=== PATIENT | male | born 1955 | race Caucasian/White ===

== ENCOUNTER 2021-06-25 15:34 | Emergency (ER) | payer MEDICARE, SELFPAY ==
[2021-06-25 15:41] VITALS: BP 189/126; PULSE 108; RESP 18; TEMP 36.6; O2SAT 96; BMI 32.0
--- NOTE | 2021-06-25 15:47 | XRR_ITS ---
PROCEDURE INFORMATION: Exam: XR Chest Exam date and time: 06/25/2021 3:47 PM Age: 65 years old Clinical indication: Other: No specified; Patient HX: C/O chest pain TECHNIQUE: Imaging protocol: XR of the chest. Views: 1 view. COMPARISON: No relevant prior studies available. FINDINGS: Lungs: Left lower lobe atelectasis versus minimal infiltrate Pleural spaces: Unremarkable. No pleural effusion. No pneumothorax. Heart/Mediastinum: Borderline cardiomegaly. Bones/joints: Unremarkable. XR/XR chest 1V portable [id number] IMPRESSION: 1. Left lower lobe atelectasis versus minimal infiltrate 2. Borderline cardiomegaly.
--- NOTE | 2021-06-25 15:49 | ECG_ITS ---
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 Measurements Intervals Jeff Rate: 100 P: 33 AR: 170 QRS: -58 QRSD: 102 T: 79 QT: 336 QTc: 433 Interpretive Statements SINUS TACHYCARDIA LEFT ANTERIOR FASCICULAR BLOCK [QRS AXIS <= -45, QR IN I, RS IN II] SEPTAL MYOCARDIAL INFARCTION , PROBABLY OLD [40+ ms Q WAVE IN V1/V2] POSSIBLE LATERAL MYOCARDIAL INFARCTION , OF INDETERMINATE AGE [30 ms Q WAVE IN I/aVL/V5/V6] No previous ECG available for comparison Electronically Signed On 06-26-2021 6:57:33 ART STUDIO TEACHER by Karlos Amin M.D. [id number]
--- NOTE | 2021-06-25 16:05 | PC.PHAR ---
pt states he use to takes bp meds-pt states he hasnt taken in at least 4 years-pt states he didnt need them anymore-pts states today she gave the pt one of her lisinopril 5mg tabs and a nitro pill x3-notes are made in the pharmacy comments
--- NOTE | 2021-06-25 16:26 | W.ED.CHESTPA ---
Documented by User: John Canchola DO 06/26/21 07:19 HPI - Chest Pain General: Chief Complaint: Chest Pain Stated Complaint: Chest Pains Time Seen by Provider: 06/25/21 15:47 Source: patient Mode of arrival: ambulatory Limitations: no limitations History of Present Illness: 65-year-old male presents emergency room with right-sided chest pain is worse with palpation radiating to his right arm. Began while he was at rest his gave him 3 nitro he reports he did get better with nitro. He also took a baby aspirin. After the nitro the chest pain did get better. Patient has no known history of coronary artery disease. He is not diabetic. Pain is reproducible with pain on palpation on the right side of the chest. He relates pain radiates into the right arm earlier now is resolved he denies any nausea dyspnea or diaphoresis with it. Has not previously had episodes of pain. MD complaint: chest pain Onset (ago): minute(s) Timing of current episode: episodic Onset: during rest Pain location: right chest Pain radiation: right arm Severity: mild Quality: tightness, aching, heaviness and fullness Relieving factors: nitroglycerin Exacerbating factors: nothing Associated symptoms: Deny abdominal pain, diaphoresis, dyspnea, fever(s), leg edema, nausea, palpitations, sense of impending doom, syncope or vomiting Treatment prior to arrival: aspirin and nitroglycerin Review of Systems Const: Denies: fever(s) or diaphoresis ENMT: Denies: throat pain, ear or mastoid pain, nasal discharge or nasal congestion Card: Denies: palpitations or syncope Resp: Denies: dyspnea GI: Denies: abdominal pain, nausea or vomiting : Denies: flank pain, dysuria, urinary frequency or urinary urgency Skin/Breast: Denies: rash or pruritus PFS ED PFSH: Medical History Hypertension Social History Smoking and tobacco status: former smoker Alcohol intake: unknown Physical Exam Const: GENERAL APPEARANCE: cooperative and comfortable ORIENTATION/CONSCIOUSNESS: Yes awake, Yes oriented to person, Yes oriented to place and Yes oriented to time HENMT: COMMON NORMALS: normocephalic, atraumatic and hearing grossly normal bilaterally HEAD & SCALP: normocephalic and atraumatic Neck/C-Spine: COMMON NORMALS: no JVD Resp: COMMON NORMALS: normal respiratory effort, No retractions, No use of accessory muscles and clear to auscultation bilaterally AUSCULTATION: clear to auscultation bilaterally Cardio: COMMON NORMALS: no JVD, regular rate, regular rhythm and No murmurs present (Cardio) RATE: regular rate RHYTHM: regular rhythm GI: COMMON NORMALS: Soft to palpation and No hepatosplenomegaly present AUSCULTATION: Yes normoactive bowel sounds PALPATION: Yes Soft to palpation, No Tenderness to palpation present (GI), No Guarding due to palpation present (GI) and Yes No hepatosplenomegaly present Extremity: COMMON NORMALS: normal to inspection, capillary refill normal, no clubbing, cyanosis or edema, no calf tenderness and no pedal edema Neuro: SENSORIUM/ORIENTATION: Yes oriented to person, Yes oriented to place and Yes oriented to time Skin: COMMON NORMALS: no rashes or lesions noted GENERAL SKIN EXAM: no rashes or lesions noted Course Vital Signs: Vital signs: Vital Signs Temperature 98 F 06/25/21 15:41 Pulse Rate 90 06/25/21 21:03 Respiratory Rate 16 06/25/21 21:03 Blood Pressure 148/110 06/25/21 21:03 Pulse Oximetry 96 06/25/21 21:03 MDM - Chest Pain Medical Decision Making Repeat labs pending. First troponin elevated. No acute EKG changes. Care signed out to Dr. Blunt at change of shift. See final notes for diagnosis and disposition. 65-year-old male checked out to me at shift change by Dr. Canchola. This gentleman has had right-sided chest pain that is resolved. He states that he has been belching since he has been here, which is completely relieved his pain. His initial EKG did not show any significant ST changes. His white blood cell count is 13.5, hemoglobin 17.5. His vitals have been good. His first troponin was elevated, with a significant delta troponin of 88 at 2 hours. The patient was counseled on his test results, and the concern for non-STEMI in this patient at this point. He was advised that he needed to come into the hospital for further testing, and would possibly end up in the Community Action Worker because of this. The patient adamantly declined admission, stating that he was asymptomatic at this point, that he would return if his symptoms returned at all, and that he wished to go home. He understands the risks of going home, including evolving OR, heart failure, and potentially arrhythmia and . He understands and agrees to this, and still declines admission. Lab Data : 06/25/21 17:11 06/25/21 16:41 Radiology Impressions Chest X-Ray 06/25/21 15:47 IMPRESSION: 1. Left lower lobe atelectasis versus minimal infiltrate 2. Borderline cardiomegaly. Laboratory Results WBC 13.5 10^3/uL (4.0-10.0) H 06/25/21 17:11 Corrected WBC Cancelled 06/25/21 16:41 RBC 6.07 10^6/uL (4.1-5.3) H 06/25/21 17:11 Hgb 17.5 g/dL (11.7-16.6) H 06/25/21 17:11 Hct 51.4 % (42.0-52.0) 06/25/21 17:11 MCV 84.7 fl (80-94) 06/25/21 17:11 MCH 28.8 pg (28.0-34.0) 06/25/21 17:11 MCHC 34.0 g/dL (30.0-36.0) 06/25/21 17:11 RDW 12.9 % (12.1-15.1) 06/25/21 17:11 Plt Count 273 10^3/cmm (130-400) 06/25/21 17:11 MPV 11.0 fL (7.4-10.4) H 06/25/21 17:11 Gran % Cancelled 06/25/21 16:41 Neut % (Auto) 74.6 % 06/25/21 17:11 Lymph % (Auto) 16.1 % 06/25/21 17:11 Clarke % (Auto) 6.6 % 06/25/21 17:11 Eos % (Auto) 1.4 % 06/25/21 17:11 Baso % (Auto) 1.0 % 06/25/21 17:11 Neut # (Auto) 10.08 10^3/uL (1.8-7.7) H 06/25/21 17:11 Lymph # (Auto) 2.2 10^3/uL (0.8-4.8) 06/25/21 17:11 Clarke # (Auto) 0.9 10^3/uL (0.2-0.9) 06/25/21 17:11 Eos # (Auto) 0.2 10^3/uL (0.0-0.8) 06/25/21 17:11 Baso # (Auto) 0.1 10^3/uL (0.0-0.1) 06/25/21 17:11 Absolute Gran (auto) Cancelled 06/25/21 16:41 Nucleated RBC % (auto) 0 % 06/25/21 17:11 Nucleated RBCs # 0.0 /100WBC 06/25/21 17:11 Sodium 136 mmol/L (136-145) 06/25/21 16:41 Potassium 4.1 mmol/L (3.5-5.1) 06/25/21 16:41 Chloride 103 mmol/L (98-107) 06/25/21 16:41 Carbon Dioxide 22 mmol/L (22-29) 06/25/21 16:41 Anion Gap 15.1 (5-19) 06/25/21 16:41 BUN 14 mg/dL (8-23) 06/25/21 16:41 Creatinine 0.9 mg/dL (0.7-1.2) 06/25/21 16:41 GFR Calculation 84.4 mL/min (90-130) L 06/25/21 16:41 Glucose 122 mg/dL (65-115) H 06/25/21 16:41 Calculated Osmolality 284 mOsm/kg (285-295) L 06/25/21 16:41 Calcium 10.2 mg/dL (8.5-10.5) 06/25/21 16:41 Total Bilirubin 0.4 mg/dL (0.15-1.2) 06/25/21 16:41 AST 23 U/L (0-40) 06/25/21 16:41 ALT 16 U/L (0-41) 06/25/21 16:41 Alkaline Phosphatase 189 IU/L (40-130) H 06/25/21 16:41 Troponin T Baseline 74 ng/L (0-15) H 06/25/21 16:41 Troponin T 120 Minute 155.4 ng/L (0-15) H 06/25/21 18:45 Delta Troponin T 81.4 ABS# (0-10) H* 06/25/21 18:45 Total Protein 7.1 g/dL (6.6-8.7) 06/25/21 16:41 Albumin 4.4 g/dL (3.5-5.2) 06/25/21 16:41 Globulin 2.7 g/dL (1.3-4.6) 06/25/21 16:41 Discharge Plan Discharge Patient Disposition: Home Clinical Impression: Chest pain Condition: Stable Prescriptions: No Action aspirin 325 mg Tablet 325 mg PO ONCE 0RF Nitrostat 0.4 mg Tablet, Sublingual 0.4 mg SUBLINGUAL Q5M PRN (Reason: Chest Pain) 0RF Rx Instructions: do not exceed 3 doses per episode lisinopril 5 mg Tablet 5 mg PO ONCE 0RF Discharge Orders: Discharge ED (Routine); Ordered 06/25/21 Ordered By: Dwayne Blunt Referrals: Brice Sanderson MD [Family Provider] - 1-3 days Discharge Diet: Advance as tolerated Discharge Activity: Limit activity as instructed Patient Instructions: Chest Pain (ED) Activity Restrictions/Additional Instructions: See your doctor Monday as scheduled. Return immediately to the ER for any return of your chest pain, shortness of breath, dizziness, nausea or vomiting, any other concerning symptoms. An outpatient order for stress test has been ordered for you. You should get a call from hospital scheduling regarding this this coming week. Coding Level of Care Code ED Electric Motor Repair Supervisor for Chg Fwd Exam Comprehensive Documented by User: Dwayne Blunt DO 06/25/21 22:58 HPI - Chest Pain General: Chief Complaint: Chest Pain Stated Complaint: Chest Pains Time Seen by Provider: 06/25/21 15:47 PFSH ED PFSH: Medical History Hypertension Social History Smoking and tobacco status: former smoker Alcohol intake: unknown Course Vital Signs: Vital signs: Vital Signs Temperature 98 F 06/25/21 15:41 Pulse Rate 90 06/25/21 21:03 Respiratory Rate 16 06/25/21 21:03 Blood Pressure 148/110 06/25/21 21:03 Pulse Oximetry 96 06/25/21 21:03 MDM - Chest Pain Medical Decision Making 65-year-old male checked out to me at shift change by Dr. Canchola. This gentleman has had right-sided chest pain that is resolved. He states that he has been belching since he has been here, which is completely relieved his pain. His initial EKG did not show any significant ST changes. His white blood cell count is 13.5, hemoglobin 17.5. His vitals have been good. His first troponin was elevated, with a significant delta troponin of 88 at 2 hours. The patient was counseled on his test results, and the concern for non-STEMI in this patient at this point. He was advised that he needed to come into the hospital for further testing, and would possibly end up in the Community [facility] Worker because of this. The patient adamantly declined admission, stating that he was asymptomatic at this point, that he would return if his symptoms returned at all, and that he wished to go home. He understands the risks of going home, including evolving OR, heart failure, and potentially arrhythmia and . He understands and agrees to this, and still declines admission. Lab Data : 06/25/21 17:11 06/25/21 16:41 Radiology Impressions Chest X-Ray 06/25/21 15:47
[2021-06-25] MEDS: aspirin 81 mg Chew Tablet 324 MG PO (16:36)
[2021-06-25 16:38] VITALS: BP 166/107; PULSE 98; RESP 16; O2SAT 91
[2021-06-25 17:20] LABS: Troponin(5th) Baseline 74 ng/L (0-15)
[2021-06-25 17:22] LABS: Alanine Aminotransferase 16 U/L (0-41); Albumin Level 4.4 g/dL (3.5-5.2); Alkaline Phosphatase 189 IU/L (40-130); Aspartate Amino Transferase 23 U/L (0-40); Blood Urea Nitrogen 14 mg/dL (8-23); Calcium 10.2 mg/dL (8.5-10.5); Carbon Dioxide 22 mmol/L (22-29); Chloride 103 mmol/L (98-107); Globulin 2.7 g/dL (1.3-4.6); Glomerular Filtration Rate 84.4 mL/min (90-130); Glucose 122 mg/dL (65-115); Osmolality Calculated 284 mOsm/kg (285-295); Sodium 136 mmol/L (136-145); Total Bilirubin 0.4 mg/dL (0.15-1.2); Total Protein 7.1 g/dL (6.6-8.7)
[2021-06-25 17:25] LABS: Anion Gap 15.1 (5-19); Potassium 4.1 mmol/L (3.5-5.1)
[2021-06-25 17:28] LABS: Basophils # 0.1 10^3/uL (0.0-0.1); Eosinophils # 0.2 10^3/uL (0.0-0.8); Eosinophils % 1.4 %; Hematocrit 51.4 % (42.0-52.0); Hemoglobin 17.5 g/dL (11.7-16.6); Lymphocytes # 2.2 10^3/uL (0.8-4.8); Lymphocytes % 16.1 %; Mean Corpuscular Hemoglobin 28.8 pg (28.0-34.0); Mean Corpuscular Volume 84.7 fl (80-94); Monocytes # 0.9 10^3/uL (0.2-0.9); Monocytes % 6.6 %; Neutrophils # 10.08 10^3/uL (1.8-7.7); Neutrophils % 74.6 %; Nucleated Red Blood Cells % 0 %; Platelet Count 273 10^3/cmm (130-400); Red Blood Count 6.07 10^6/uL (4.1-5.3); Red Cell Distribution Width 12.9 % (12.1-15.1); White Blood Count 13.5 10^3/uL (4.0-10.0)
[2021-06-25 17:35] VITALS: BP 152/105; PULSE 102; O2SAT 95
--- NOTE | 2021-06-25 17:49 | ECG_ITS ---
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 Measurements Intervals [place] Rate: 93 P: 40 AK: 170 QRS: -47 QRSD: 94 T: 76 QT: 339 QTc: 424 Interpretive Statements SINUS RHYTHM PATTERN CONSISTENT WITH PULMONARY DISEASE LEFT ANTERIOR FASCICULAR BLOCK [QRS AXIS <= -45, QR IN I, RS IN II] POSSIBLE SEPTAL MYOCARDIAL INFARCTION , OF INDETERMINATE AGE [30 ms Q WAVE IN V1/V2] Compared to ECG 06/25/2021 15:41:07 Sinus tachycardia no longer present Myocardial infarct finding still present Electronically Signed On 06-26-2021 18:06:01 STITCHING MACHINE OPERATOR by Aide Grissom M.D. [id number]
[2021-06-25 18:41] VITALS: BP 148/93; PULSE 97; O2SAT 94
[2021-06-25 19:28] LABS: Troponin 5 2HR 155.4 ng/L (0-15); Troponin 5 2HR Delta 81.4 ABS# (0-10)
[2021-06-25 21:03] VITALS: BP 148/110; PULSE 90; RESP 16; O2SAT 96
== END 2021-06-25 21:04 | disposition home or self-care (01) ==
PROVIDERS: Family Medicine; Emergency Provider Emergency Medicine; Family Provider Family Medicine
DX: R07.9 Chest pain, unspecified (principal); Z79.82 Long term (current) use of aspirin; I10 Essential (primary) hypertension; Z87.891 Personal history of nicotine dependence
CPT/HCPCS: 71045; 80053; 84484; 85025; 93005; 99283

== ENCOUNTER → 2021-06-30 15:00 | Outpatient (BNVA) | payer MEDICARE, SELFPAY | PROVIDERS: Family Provider Family Medicine; Visit Provider Internal Medicine | DX: I21.4 Non-ST elevation (NSTEMI) myocardial infarction (principal); I10 Essential (primary) hypertension; R07.9 Chest pain, unspecified; R06.02 Shortness of breath | CPT/HCPCS: 99204; 99205 ==

== ENCOUNTER 2021-07-20 08:43 | Outpatient (CLI) | payer MEDICARE, SELFPAY ==
[2021-07-20 09:08] LABS: Basophils # 0.1 10^3/uL (0.0-0.1); Eosinophils # 0.4 10^3/uL (0.0-0.8); Eosinophils % 3.5 %; Hematocrit 52.8 % (42.0-52.0); Hemoglobin 17.5 g/dL (11.7-16.6); Lymphocytes # 2.9 10^3/uL (0.8-4.8); Lymphocytes % 27.7 %; Mean Corpuscular HGB Conc 33.1 g/dL (30.0-36.0); Mean Corpuscular Hemoglobin 29.2 pg (28.0-34.0); Mean Corpuscular Volume 88.1 fl (80-94); Mean Platelet Volume 11.7 fL (7.4-10.4); Monocytes # 0.7 10^3/uL (0.2-0.9); Monocytes % 6.8 %; Neutrophils # 6.38 10^3/uL (1.8-7.7); Neutrophils % 60.7 %; Nucleated Red Blood Cells % 0 %; Platelet Count 225 10^3/cmm (130-400); Red Blood Count 5.99 10^6/uL (4.1-5.3); Red Cell Distribution Width 13.6 % (12.1-15.1); White Blood Count 10.5 10^3/uL (4.0-10.0)
[2021-07-20 09:17] LABS: INR 0.88 (0.83-1.21); Prothrombin Time (Patient) 12.2 Seconds (12.0-15.1)
[2021-07-20 10:06] LABS: Anion Gap 16.4 (5-19); Blood Urea Nitrogen 14 mg/dL (8-23); Calcium 9.9 mg/dL (8.5-10.5); Carbon Dioxide 26 mmol/L (22-29); Chloride 102 mmol/L (98-107); Glomerular Filtration Rate 84.4 mL/min (90-130); Glucose 123 mg/dL (65-115); Osmolality Calculated 292 mOsm/kg (285-295); Potassium 4.4 mmol/L (3.5-5.1); Sodium 140 mmol/L (136-145)
[2021-07-20 11:06] LABS: Adenovirus Not Detected (NOT DETECT); Chlamydia Pneumoniae Not Detected (NOT DETECT); Coronavirus 229E,HKU1,NL63,OC4 Not Detected (NOT DETECT); Human Metapneumovirus Not Detected (NOT DETECT); Human Rhinovirus/Enterovirus Not Detected (NOT DETECT); Influenza A Not Detected (NOT DETECT); Influenza A H1 Not Detected (NOT DETECT); Influenza A H1-2009 Not Detected (NOT DETECT); Influenza A H3 Not Detected (NOT DETECT); Influenza B Not Detected (NOT DETECT); Mycoplasma Pneumoniae Not Detected (NOT DETECT); Parainfluenza Virus Type 1 Not Detected (NOT DETECT); Parainfluenza Virus Type 2 Not Detected (NOT DETECT); Parainfluenza Virus Type 3 Not Detected (NOT DETECT); Parainfluenza Virus Type 4 Not Detected (NOT DETECT); Respiratory Syncytial Virus A Not Detected (NOT DETECT); Respiratory Syncytial Virus B Not Detected (NOT DETECT); SARS-COV-2 Not Detected (NOT DETECT)
== END 2021-07-20 08:44 | disposition home or self-care (01) ==
LOC: LAB 08:48
PROVIDERS: Family Provider Family Medicine; PCP Family Medicine; Visit Provider Internal Medicine
DX: Z01.812 Encounter for preprocedural laboratory examination (principal); I10 Essential (primary) hypertension
CPT/HCPCS: 80048; 85025; 85610; 87635

== ENCOUNTER 2021-07-23 09:08 | Inpatient (IN) | payer MEDICARE, SELFPAY ==
[2021-07-23] VITALS (141 sets, daily range): BP systolic 96–206; BP diastolic 48–117; PULSE 48–104; RESP 1–31; TEMP 36.6–36.7; O2SAT 67–97; BMI 31.7
--- NOTE | 2021-07-23 06:00 | XACV_ITS ---
Exam Room: 2 Ht: 175 cm Wt: 98 kg BSA: 2.21 m2 Gender: Male : 1955 Exam Priority: Routine Procedure(s): Procedure Description: Diagnostic procedure Procedure Description: PCI procedure Procedure Description: Drug Eluting Coronary Stent Procedure Description: PTCA Procedure Description: Miscellaneous Procedure Description: ACT Procedure Description: Coronary Angiography Diagnostic Cath Status: Elective Diagnostic Findings * INDICATION: Dyspnea on exertion/ Recent Non ST elevation SC. * Right Coronary Artery has mild luminal irregularities. * Left Main has no disease. * Circumflex has no disease. * Proximal Left Anterior Descending: critical 95% stenosis, GRETTA: 3 flow. * Mid Left Anterior Descending: moderate 50% stenosis, GRETTA: 3 flow. * Coronary angiography shows right dominance. PCI Status: Elective PCI Indication: NSTE - ACS Interventional Findings * PROCEDURE DETAIL: We engaged left main artery with XB 3.5 guide catheter. IV heparin was administered to maintain ACT above 250 seconds. We used 0.014 run-through guidewire to cross the proximal LAD stenosis. We predilated the stenosis with 2.5 x 12 mm semicompliant balloon. This was followed by placement of 3.0 x 15mm resolute [place] drug-eluting stent. This was followed by post dilation with 3.5 x 8 mm NC balloon. At this time final angiogram was performed that showed excellent stent expansion, no residual stenosis and GRETTA-3 flow.. * Proximal Left Anterior Descendin% stenosis treated with a AB TREK 2.50X12 RX BALLOON, T Liliana CHRISTINA 3.0X15 CASSIUS, and MDT ANTOINETTE EUPHORA RX [id number] BALLOON. 0% residual stenosis, GRETTA: 3 flow. Conclusions 1. Critical proximal LAD stenosis s/p successful revascularization with CASSIUS x1. Mid LAD has moderate stenosis.. 2. Proximal Left Anterior Descending was treated with a Balloon, Drug Eluting Stent, and Balloon. Recommendations * Aspirin Plavix for at least 1 year. * High intensity statin therapy. * Beta-donald therapy. * Outpatient cardiology follow-up in 4 weeks. Interventional RX Recommendation: PCI w/o planned CABG Diagnostic RX Recommendation: PCI w/o planned CABG Anticoagulation: Heparin Pressures Phase:Rest AO : 95 / 66 ( 81 ) @ 9:02:00 AM 98 / 60 ( 77 ) @ 9:18:00 AM 114 / 64 ( 85 ) @ 9:25:00 AM Clinical Evaluation EBL: 5mL-10mL Procedural Details Procedure Consent Obtained. Pre-Procedure Time Out. Identified patient by full name and date of as verbalized by the patient/guarantor. Does the consent match the physician's order: Yes. Accurate & Complete Informed Consent: Yes. Inpatient/Outpatient History & Physical on Chart: Yes. If H&P is completed, is and addenduem needed: N/A; If yes, is the addendum complete: N/A. Visualize and Verify Site with Patient/Guarantor: N/A. Relevant Radiology Images available: N/A. Pre-op teaching completed and patient verbalized understanding. The risks, benefits, and alternatives of sedation and/or procedure were discussed by physician. The patient agrees to continue. Procedure started. [facility] Clinical Fraility Score: 3: Managing Well. 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 Chest Pain Symptom Assessment: Atypical Angina. Correct patient, site and procedure confirmed by cath team. Current diagnosis: Chest Pain. PERRLA. Strong, equal hand appeals examiner bilaterally. Lungs clear x 5 lobes. IV Site on Arrival: 20 gauge in the left anticubital. IV Fluids: 0.9% NaCl at KVO. 0 mL infused prior to laundry laborer. Pre Procedural Pulses: bilateral dorsalis pedis was Doppled. Pre Procedural Pulses: bilateral radial was 2+. Oxygen started at 2liters/min via nasal canula. right groin was prepped with chloroprep then draped in the usual sterile fashion. right radial was prepped with chloroprep then draped in the usual sterile fashion. Baseline sample Acquired. HR: 55 BPM. Physician notified. Physician arrived. Physician scrubbed in. Immediate Pre-Procedure Time Out. Correct Patient: Yes; Correct Procedure: Yes; Correct Site: Yes; Correct Patient Position: Yes; Correct Supplies: Yes; Dried Flammable Prep: Yes; Blood Products Available: n/a. Admit Source: Out Patient. Lidocaine 1% infiltrated to the right radial. Arterial access obtained. A 5 argentine TIG catheter in over wire. Multiple views taken of left coronary artery. Catheter redirected to the RCA. Catheter out. A 5 argentine JR4 catheter in over the Glidewire. Glidewire removed. Standard wire inserted. Patient's family updated. Standard wire removed. Multiple views taken of right coronary artery. Catheter out. 6 argentine XB 3.5 guide catheter was inserted over the [place] wire. Glidewire removed. Standard wire inserted. Standard wire removed. Glidewire inserted. Guide catheter and wire removed. A 5 argentine JR4 catheter in over wire. Standard wire removed. Glidewire inserted. Catheter out. 6 argentine XB 3.5 guide catheter was inserted over the wire. GLidewire removed. Runthrough guidewire was advanced through the guide catheter to lesion in the prox LAD. Balloon inserted to lesion in the prox LAD. Inflation number : 1 A AB TREK 2.50X12 RX BALLOON was prepped and advanced across the Prox LAD , then inflated to 12 STACI for 0:25 seconds. Balloon out. Stent inserted to lesion in the prox LAD. Inflation Number : 2 A PENNIE Ford CHRISTINA 3.0X15 CASSIUS -Lot Number# [id number] Exp 01/02/2024 was prepped and advanced across the Prox LAD. The stent was deployed at 12 STACI for 0:21 seconds. Stent balloon out over wire. Results checked. Inflation number : 3 A PENNIE CURRY EUPHORA RX [id number] BALLOON was prepped and advanced across the Prox LAD , then inflated to 12 STACI for 0:20 seconds. Balloon inserted to lesion in the prox LAD. Balloon out. Results checked. Wire out. Results checked. Guide catheter out. ACT drawn. Results 249 seconds. Therapeutic limits - pre-heparin administration 90-150 seconds and monitoring heparin during a vascular procedure >250 seconds. A TR Band was successful obtaining hemostatsis at the Right Radial artery insertion site. Total IV fluids: 60 mL. Post Procedure: Pulses reassessed and unchanged. PERRLA. Strong, equal hand appeals examiner bilaterally. No VTE prophylaxis required. Medication's Wasted: Lidocaine 1% = 18 mL. Medication's Wasted: Nitro = 49.6 mg. Post-op diagnosis: Obstructive CAD. Complications: none. Estimated blood loss: 5mL-10mL. Responsiveness - Normal response to verbal stimuli; alert and oriented, PERRLA. Airway - Unaffected, no intervention required; spontaneous ventilation. Medication's Wasted: Heparin = 4000 u. Circulation: W/N/L, pulses unchanged. Nausea/Vomiting: No. Procedure completed. Patient transferred by wheelchair to CPRU. Vital chart was stopped. Access Site Site: Right Radial artery Sheath Size: 6 Fr Hemostasis Method: TR Band Hemostasis Success: Successful Procedure Medications Start: 7:48 AM Stop: 7:48 AM Medication: Versed Amount: 1 mg Route: I.V. Start: 7:50 AM Stop: 7:50 AM Medication: Versed Amount: 1 mg Route: I.V. Start: 7:50 AM Stop: 7:50 AM Medication: Fentanyl Amount: 50 mcg Route: I.V. Start: 7:51 AM Stop: 7:51 AM Medication: Nitrogylcerin Amount: 200 mcg Route: I.A. Start: 8:13 AM Stop: 8:13 AM Medication: Benadryl Amount: 25 mg Route: I.V. Start: 7:52 AM Stop: 7:52 AM Medication: Heparin Amount: 5000 units Route: I.V. Start: 8:16 AM Stop: 8:16 AM Medication: Heparin Amount: 5000 units Route: I.V. Start: 8:27 AM Stop: 8:27 AM Medication: Versed Amount: 1 mg Route: I.V. Start: 8:27 AM Stop: 8:27 AM Medication: Nitrogylcerin Amount: 200 mcg Route: I.A. Start: 8:29 AM Stop: 8:29 AM Medication: Plavix Amount: 600 mg Route: P.O. Start: 8:29 AM Stop: 8:29 AM Medication: Versed Amount: 1 mg Route: I.V. Start: 8:29 AM Stop: 8:29 AM Medication: Fentanyl Amount: 50 mcg Route: I.V. Start: 8:33 AM Stop: 8:33 AM Medication: Heparin Amount: 2000 units Route: I.V. I, the attending physician, have reviewed and verified all procedure medications. Yes, all medications given per verbal order History/Risk Factors Hypertension: Yes Dyslipidemia: No Peripheral Arterial Disease (PAD): No Myocardial Infarction (SC): Yes Obesity: Yes Tobacco Use: Former Dialysis: Current Prior Interventions PCI: No CABG: No Valve Surgery: No Report Signatures Finalized by Alex Cao MD on 08/05/2021 09:41 AM
[2021-07-23] MEDS: diphenhydrAMINE 50 mg Capsule PO (06:21)
--- NOTE | 2021-07-23 07:45 | W.PM.OPSUD ---
Surgery/Procedure H&P Update DATE OF PROCEDURE: July 23, 2021 DATE H&P PERFORMED: 06/30/21 H&P UPDATE INFORMATION: I have reviewed H&P completed within last 30 days, I have examined patient prior to procedure and No changes to prior documentation PREOP DIAGNOSIS: Recent NSTEMI/ Dyspnea on exertion PRIMARY INDICATION FOR PROCEDURE: Recent NSTEMI/ Dyspnea on exertion PLANNED PROCEDURE: Operation Date: 07/23/21 07:00 Proposed Procedures p Cardiac Catheterization(Left) - Alex Cao M.D Possible percutaneous coronary intervention PATIENT REASSESSED PRIOR TO SEDATION, WITH NO CHANGE NOTED: Yes PHYSICAL EXAM: alert, oriented x 3, clear to auscultation bilaterally and regular rate & rhythm AIRWAY EVAL/ANESTHESIA PLAN: ASA III, Monitored Anesthesia, Local Anesthesia, Risks, benefits & alternatives of sedation and/or procedure discussed and Patient agrees to continue as planned
[2021-07-23] MEDS: sodium chloride 0.9% 1,000 ML 100 ML IV (09:00)
--- NOTE | 2021-07-23 09:32 | PC.NURSE ---
Non administered scheduled medication patient reports he took them just prior to admission on this day
--- NOTE | 2021-07-23 14:03 | ECG_ITS ---
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 Measurements Intervals [place] Rate: 57 P: 37 FL: 170 QRS: -27 QRSD: 102 T: 29 QT: 416 QTc: 406 Interpretive Statements SINUS BRADYCARDIA POSSIBLE LATERAL MYOCARDIAL INFARCTION , OF INDETERMINATE AGE [30 ms Q WAVE IN I/aVL/V5/V6] MODERATE T-WAVE ABNORMALITY, CONSIDER ANTERIOR ISCHEMIA [-0.1+ mV T WAVE IN V3/V4] Compared to ECG 06/25/2021 17:40:08 T-wave abnormality now present Possible ischemia now present Sinus rhythm no longer present Left anterior fascicular block no longer present Myocardial infarct finding still present Electronically Signed On 07-23-2021 17:58:03 CDT by Aide Grissom M.D. [id number]
--- NOTE | 2021-07-23 15:09 | USCV_ITS ---
KhalifTrung lafleur Age: 65 Gender: M : 1955 Exam Date: 07/23/2021 15:19 Ordering Phys: Alex Cao M.D ([email or web address]) Technologist: [place] [facility] [place] POST PCI BP: 180 / 92 HR: 59 Rhythm: Sinus Technical Quality: Adequate MEASUREMENTS (Male / Female) Normal Values 2D ECHO LV Diastolic Diameter PLAX 4.0 cm 4.2 - 5.9 / 3.9 - 5.3 cm LV Systolic Diameter PLAX 2.7 cm IVS Diastolic Thickness 1.0 cm 0.6 - 1.0 / 0.6 - 0.9 cm IVS Systolic Thickness 1.5 cm LVPW Diastolic Thickness 1.5 cm 0.6 - 1.0 / 0.6 - 0.9 cm LVPW Systolic Thickness 1.8 cm LVOT Diameter 2.0 cm LV Ejection Fraction 2D Teich 60.8 % LV Ejection Fraction MOD 2C 71.5 % LV Ejection Fraction 2C AL 71.1 % LA Diameter 4.2 cm M-MODE Aortic Annulus Diameter 3.8 cm LA Ao Ratio MM 1.1 MV E Point Septal Separation 1.1 cm DOPPLER AV Peak Velocity 126.0 cm/s LVOT Peak Velocity 82.0 cm/s AV Area Cont Eq vti 2.9 cm squared AV Area Cont Eq pk 2.1 cm squared MV Area PHT 5.0 cm squared Mitral E to A Ratio 1.6 MV E' Velocity 44.5 cm/s Mitral E to MV E' Ratio 11.7 Mitral E to LV E' Lateral Ratio 10.4 Mitral E to LV E' Septal Ratio 13.4 TR Peak Velocity 129.0 cm/s TR Peak Gradient 6.7 mmHg FINDINGS Left Ventricle Normal left ventricular size. LV systolic function is normal with EF of 55-60%. No regional wall motion abnormalities. Normal diastolic dysfunction Right Ventricle The right ventricle is normal in size and function. Right Atrium The right atrium is normal in size. Left Atrium The left atrium is normal in size. Mitral Valve Structurally normal mitral valve without significant stenosis or prolapse. There is no mitral regurgitation. Aortic Valve Structurally normal aortic valve without significant sclerosis or stenosis. There is no aortic regurgitation. Tricuspid Valve Not well visualized. No significant tricuspid regurgitation or stenosis Pulmonic Valve Not well visualized Pericardium Normal pericardium without effusion. Aorta Normal ascending aorta dimension. CONCLUSIONS Technically limited quality echocardiogram because of poor ultrasonic windows LV systolic function is normal with EF of 55-60% Normal diastolic dysfunction No significant valvular heart disease No comparison studies are available Alex Cao MD (Electronically Signed) Final Date: 23 July 2021 17:16 S
--- NOTE | 2021-07-23 15:34 | CTR_ITS ---
PROCEDURE INFORMATION: Exam: CT Angiography Head With Contrast, Arteriography Exam date and time: 07/23/2021 3:46 PM Age: 65 years old Clinical indication: Dizziness and giddiness and speech disturbance and visual disturbance; Other visual defect; Patient HX: Dizziness, blurred vision, slurred speech; Additional info: Patient condition TECHNIQUE: Imaging protocol: Computed tomography angiography of the head with contrast. Exam focused on the arteries. 3D rendering (Not supervised by radiologist): MIP and/or 3D reconstructed images were created by the technologist. Radiation optimization: All CT scans at this facility use at least one of these dose optimization techniques: automated exposure control; mA and/or kV adjustment per patient size (includes targeted exams where dose is matched to clinical indication); or iterative reconstruction. Contrast material: OMNI 350; Contrast volume: 95 ml; Contrast route: INTRAVENOUS (IV); COMPARISON: 1. CT head wo con* [id number] 07/23/2021 3:38 PM 2. CR XR chest 1V portable [id number] 06/25/2021 3:56 PM RADIATION DOSE METRICS: Total DLP (mGy-cm): 2231.61 FINDINGS: ANTERIOR CIRCULATION: Right internal carotid artery: There is severe stenosis in the paraophthalmic segment of the right internal carotid artery. The in No aneurysm. Right middle cerebral artery: Unremarkable. No occlusion or significant stenosis. No aneurysm. Right anterior cerebral artery: Unremarkable. No occlusion or significant stenosis. No aneurysm. Left internal carotid artery: There is a focal area of moderate stenosis in the paraophthalmic segment of the left internal carotid artery. No aneurysm. Left middle cerebral artery: Unremarkable. No occlusion or significant stenosis. No aneurysm. Left anterior cerebral artery: Unremarkable. No occlusion or significant stenosis. No aneurysm. POSTERIOR CIRCULATION: Right vertebral artery: Hypoplastic. No occlusion or significant stenosis. No aneurysm. Left vertebral artery: Unremarkable. No occlusion or significant stenosis. No aneurysm. Basilar artery: Unremarkable. No occlusion or significant stenosis. No aneurysm. Right posterior cerebral artery: Unremarkable. No occlusion or significant stenosis. No aneurysm. Left posterior cerebral artery: Unremarkable. No occlusion or significant stenosis. No aneurysm. Brain: No definite mass, mass effect, or midline shift. Cerebral ventricles: No ventriculomegaly. Bones/joints: Unremarkable. No acute fracture. Soft tissues: Unremarkable. Paranasal sinuses: There is polypoid mucosal thickening of the left maxillary sinus, resulting in partial opacification. Other paranasal sinuses are well aerated. PROCEDURE INFORMATION: Exam: CT Angiography Neck With Contrast Exam date and time: 07/23/2021 3:46 PM Age: 65 years old Clinical indication: Dizziness and giddiness and speech disturbance and visual disturbance; Other visual defect; Patient HX: Dizziness, blurred vision, slurred speech; Additional info: Patient condition TECHNIQUE: Imaging protocol: Computed tomography angiography of the neck with contrast. 3D rendering (Not supervised by radiologist): MIP and/or 3D reconstructed images were created by the technologist. Radiation optimization: All CT scans at this facility use at least one of these dose optimization techniques: automated exposure control; mA and/or kV adjustment per patient size (includes targeted exams where dose is matched to clinical indication); or iterative reconstruction. Contrast material: OMNI 350; Contrast volume: 95 ml; Contrast route: INTRAVENOUS (IV); COMPARISON: 1. CT head wo con* [id number] 07/23/2021 3:38 PM 2. CR XR chest 1V portable [id number] 06/25/2021 3:56 PM RADIATION DOSE METRICS: Total DLP (mGy-cm): 2231.61 FINDINGS: Right common carotid artery: No stenosis. No dissection or occlusion. Right internal carotid artery: No stenosis of the extracranial segment. No dissection or occlusion. Right external carotid artery: No occlusion or stenosis of the origin. Left common carotid artery: No stenosis. No dissection or occlusion. Left internal carotid artery: No stenosis of the extracranial segment. No dissection or occlusion. Left external carotid artery: No occlusion or stenosis of the origin. Right vertebral artery: The right vertebral artery is hypoplastic. No dissection or occlusion. Left vertebral artery: There is focal mild stenosis at the origin of the left vertebral artery. No dissection or occlusion. Soft tissues: Normal. No significant soft tissue swelling. Bones/joints: No acute fracture. Degenerative changes of the spine seen. CT/CT angio headneck* [id number] IMPRESSION: 1. No large vessel occlusion. 2. Severe stenosis of the paraophthalmic segment of the right internal carotid artery. 3. Focal moderate stenosis in the paraophthalmic segment of the left internal carotid artery. IMPRESSION: 1. No occlusion. 2. Hypoplastic right vertebral artery. 3. Focal mild stenosis at the origin of the left vertebral artery. REFERENCES: NASCET CRITERIA. The degree of internal carotid artery stenosis is based on NASCET criteria. Normal is no stenosis. Mild is less than 50% stenosis. Moderate is 50-69% stenosis. Severe is 70% to 99% stenosis. Total occlusion is no detectable patent lumen.
[2021-07-23 15:39] LABS: Basophils # 0.1 10^3/uL (0.0-0.1); Basophils % 0.9 %; Eosinophils # 0.3 10^3/uL (0.0-0.8); Hematocrit 47.2 % (42.0-52.0); Hemoglobin 15.7 g/dL (11.7-16.6); Lymphocytes # 2.2 10^3/uL (0.8-4.8); Lymphocytes % 20.7 %; Mean Corpuscular HGB Conc 33.3 g/dL (30.0-36.0); Mean Corpuscular Hemoglobin 29.3 pg (28.0-34.0); Mean Corpuscular Volume 88.1 fl (80-94); Mean Platelet Volume 11.3 fL (7.4-10.4); Monocytes # 0.7 10^3/uL (0.2-0.9); Monocytes % 6.9 %; Neutrophils # 7.17 10^3/uL (1.8-7.7); Neutrophils % 68.1 %; Nucleated Red Blood Cells % 0 %; Platelet Count 200 10^3/cmm (130-400); Red Blood Count 5.36 10^6/uL (4.1-5.3); White Blood Count 10.5 10^3/uL (4.0-10.0)
--- NOTE | 2021-07-23 15:40 | CTR_ITS ---
PROCEDURE INFORMATION: Exam: CT Head Without Contrast Exam date and time: 07/23/2021 3:38 PM Age: 65 years old Clinical indication: Dizziness and other: Stroke TECHNIQUE: Imaging protocol: Computed tomography of the head without contrast. Radiation optimization: All CT scans at this facility use at least one of these dose optimization techniques: automated exposure control; mA and/or kV adjustment per patient size (includes targeted exams where dose is matched to clinical indication); or iterative reconstruction. COMPARISON: No relevant prior studies available. RADIATION DOSE METRICS: Total DLP (mGy-cm): 1061.61 FINDINGS: Brain: Normal. No hemorrhage. Unremarkable white matter. No mass effect. Cerebral ventricles: No ventriculomegaly. Paranasal sinuses: There is polypoid mucosal thickening of the left maxillary sinus, resulting in partial opacification. Other paranasal sinuses are well aerated. Mastoid air cells: Visualized mastoid air cells are well aerated. Bones/joints: Unremarkable. No acute fracture. Soft tissues: Unremarkable. CT/CT head wo con* [id number] IMPRESSION: No acute intracranial abnormality.
[2021-07-23] MEDS: iohexol 350 mg/mL 100 mL Btl IV (15:49)
[2021-07-23 16:06] LABS: Glucose Point of Care 86 mg/dL (70-110)
[2021-07-23 16:07] LABS: Anion Gap 13.7 (5-19); Blood Urea Nitrogen 14 mg/dL (8-23); Calcium 9.9 mg/dL (8.5-10.5); Carbon Dioxide 25 mmol/L (22-29); Chloride 104 mmol/L (98-107); Glomerular Filtration Rate 84.4 mL/min (90-130); Glucose 109 mg/dL (65-115); Osmolality Calculated 287 mOsm/kg (285-295); Potassium 4.7 mmol/L (3.5-5.1); Sodium 138 mmol/L (136-145)
[2021-07-23 16:08] LABS: Troponin T (5th) Once 13 ng/L (0-15)
--- NOTE | 2021-07-23 16:11 | PC.NURSE ---
1130 patient reports dizziness and nausea patient asked to get up to bathroom patient assisted to bathroom patient reported dry heaving and resolved dizziness 1300 patient reported dizziness and nausea after eating lunch resolved after patient vomited 1500 patient called to nursing staff to use the restroom and reports nausea upon assisting patient to edge of bed patient became extremely dizzy even falling back to spine position in bed Blood pressure noted elevated and patient reports double vision Dr Cao notified of event instructions received to obtain CBC, BMP, and troponin. 1520 Dr Cao to bed side Stroke alert called patient take to CT 1600 tele stroke provider in room 1630 patient transferred to ICU for further intervention
[2021-07-23] MEDS: hyDRALAzine 20 mg/mL INJ 1 mL 10 MG IVP (16:54)
[2021-07-23] MEDS: nicardipine 20 MG/200 ML PREMIX 50 MG IV (17:20)
--- NOTE | 2021-07-23 17:22 | PC.NURSE ---
1648 Received pt from CSU at this time. Connected to ICU monitor. BP remains high. Hydralazine given per orders. BP down within range for TPA administration. Pt AAOX4. Able to make all needs known. Motor skills intact, c/o lingering dizziness. 1703 PIV started to R hand. TPA mixed and bolus of 8.7 given, TPA infusion started at 1706 at 78ml/hr. NIHSS bedside testing performed. Pt educated about stroke sx and need for hob to be lowered. 1720 Cardene gtt started per orders. Will continue to monitor.
--- NOTE | 2021-07-23 17:25 | P.CONIM_ITS ---
Providers/Reason For Consult Consulting Physician/Specialty*: Hospitalist Reason for Consult*: CVA Attending Physician: Alex Cao M.D Primary Care Provider: Brice Sanderson MD History of Present Illness History of Present Illness Pleasant 65-year-old gentleman with history of hypertension, history of CVA at age of 18, with left side residual weakness he reports moderate, for a year after the stroke, but subsequently with mild residual weakness, underwent elective coronary angiogram today with PCI with stenting of LAD, took 325 mg of aspirin at 5 AM this morning, received 600 mg of Plavix, early this morning until 8:30 in the morning was receiving heparin subsequently discontinued. Around 1 PM after the angiogram he was having some nausea. Then around 3 PM started complaining of severe diplopia, had vomiting. Stroke code was called, he was assessed by CT of the head, CTA head and neck obtained at the same time. No acute abnormality on CT of the head. Glucose was 84. Blood pressure 184/88 He was scored initially 3 on NIHSS by preliminary examination by RN. By the time he was done with CT scan which is when I saw him diplopia at rest head resolved. During my evaluation he no longer had noted mild dysmetria on FNF, but scored 3 due to mild transient horizontal gaze palsy with disconjugate gaze at extremes which he was able to overcome, but did feel vertigo at the extremes of gaze, had mild diminished sensation on the right side compared to the left, a nd also minimal/mild dysarthria. On additional the was able to sit up at the edge of the bed, but would feel dizzy, and the symptoms would persist. He was able to stand up but had to stand and walk very carefully, with somewhat unsteady gait, although did not fall down, however, again persistently reported vertigo. Similar symptoms were found on reassessment again with telemetry neurologist. Review of Systems Const: Denies: fever(s), chills, body aches or malaise Eyes: Denies: change in vision or eye redness ENMT: Denies: throat pain, oral sores or ear or mastoid pain Card: Denies: chest pain, edema, pre-syncope or dyspnea on exertion Resp: Denies: dyspnea, productive cough, change in phlegm color or hemoptysis GI: Reports: nausea and vomiting; Denies: abdominal pain, diarrhea, constipation, hematochezia or melena : Denies: flank pain, difficulty urinating, urinary frequency or hematuria Musc: Denies: back pain, joint swelling or joint redness Skin/Breast: Denies: rash, sores or new lesions Neuro: Reports: numbness in extremities (Minimal diminished sensation on the right), difficulty walking and vertigo; Denies: headache(s), weakness in extremities, confusion or seizure-like activity Endo: Denies: polyuria or polydipsia Steve/Lymph: Denies: easy bleeding or purpura All/Imm: Denies: urticaria, throat swelling or tongue swelling Medications/Allergies Home Medications Medication Instructions Recorded Confirmed Last Taken Type aspirin 325 mg tablet 325 mg PO ONCE 06/25/21 07/23/21 07/23/21 05:00 History nitroglycerin 0.4 mg sublingual 0.4 mg SUBLINGUAL Q5M PRN 06/25/21 07/23/21 06/25/21 14:30 History tablet (Nitrostat) had 3 doses isosorbide mononitrate 20 mg tablet 20 mg PO DAILY tab 06/30/21 07/23/21 07/23/21 05:00 History metoprolol tartrate 25 mg tablet 25 mg PO DAILY 06/30/21 07/23/21 07/23/21 05:00 History Allergies Allergy/AdvReac Type Severity Reaction Status Date / Time No Known Allergies Allergy Verified 06/30/21 15:29 Current Medications Generic Name Dose Route Start Last Admin Trade Name Freq PRN Reason Stop Dose Admin Aspirin 81 mg 07/23/21 09:00 07/23/21 09:31 Aspirin 81 Mg Ec Tablet PO Not Given DAILY MELIDA Clopidogrel Bisulfate 75 mg 07/23/21 09:00 07/23/21 09:31 Clopidogrel 75 Mg Tablet PO Not Given DAILY MELIDA Sodium Chloride 1,000 mls @ 50 mls/hr 07/23/21 06:00 07/23/21 09:24 Sodium Chloride 0.9% IV 07/24/21 01:59 Not Given .Q20H ONE Sodium Chloride 1,000 mls @ 100 mls/hr 07/23/21 08:45 07/23/21 09:00 Sodium Chloride 0.9% IV 100 mls/hr .Q10H MELIDA Administration Nicardipine/Sodium Chloride 20 mg in 200 mls @ 0 mls/hr 07/23/21 17:00 07/23/21 17:20 Cardene IV 5 mg/hr .Q0M MELIDA 50 mls/hr Administration Protocol Per Protocol Isosorbide Mononitrate 20 mg 07/23/21 09:00 07/23/21 09:32 Isosorbide Mononitrate 20 Mg Tablet PO Not Given DAILY MELIDA Metoprolol Tartrate 25 mg 07/23/21 09:00 07/23/21 09:32 Metoprolol Tartrate 25 Mg Tablet PO Not Given DAILY MELIDA PFSH Acute 2 PFSH: Medical History (Updated 07/23/21 @ 17:36 by Antonio Magallanes MD) CVA (cerebral vascular accident) At 18 Hypertension Surgical History (Updated 07/23/21 @ 17:36 by Antonio Magallanes MD) History of percutaneous coronary intervention Social History (Updated 07/23/21 @ 17:31 by Antonio Magallanes MD) Smoking and tobacco status: never smoked Alcohol intake: former Lives independently: Yes Household members: spouse Marital status: Vitals/I&O/Wt Last Vital Signs Temp 98.0 F 07/23/21 06:27 Pulse 68 07/23/21 17:15 Resp 24 H 07/23/21 17:15 BP 172/94 07/23/21 17:15 Pulse Ox 95 07/23/21 16:56 07/23/21 07/23/21 07/23/21 06:59 14:59 22:59 Intake Total 360 / 360 8.7 / 368.7 Balance 360 / 360 8.7 / 368.7 Weight last 48 hrs Weight 97.522 kg Physical Exam Const: COMMON NORMALS: patient oriented x3 NUTRITIONAL APPEARANCE: overweight ORIENTATION/CONSCIOUSNESS: Yes awake OTHER: [place] at bedside HENMT: COMMON NORMALS: oropharynx normal Neck/C-Spine: COMMON NORMALS: no meningeal signs and no JVD Resp: COMMON NORMALS: normal respiratory effort and clear to auscultation bilaterally AUSCULTATION: clear to auscultation bilaterally Cardio: COMMON NORMALS: no JVD, regular rhythm, S1 normal heart sound present, S2 normal heart sound present and No murmurs present (Cardio) RHYTHM: regular rhythm HEART SOUNDS: S1 normal heart sound present and S2 normal heart sound present GI: COMMON NORMALS: Normal to inspection, nondistended, normoactive bowel sounds present, Soft to palpation and non-tender PALPATION: Yes Soft to palpation Extremity: COMMON NORMALS: no joint enlargement and no pedal edema OTHER: R wrist dressing, no swelling or bleeding Neuro: COMMON NORMALS: patient oriented x3 and moves all extremities MENINGEAL SIGNS: Yes no meningeal signs COORDINATION/BALANCE: [id number] test normal and xony-bh-pddu test normal SPEECH: abnormal speech Details: slurred (mild) GAIT: Yes Shuffling gait present and Yes Staggering gait present SENSORY EXAM: Yes extremities (mildly diminished on R) and Normal double simultaneous stimulation for sensation; No sensory level loss detected MOTOR EXAM: 5/5 motor strength present throughout and Pronator motor function not present COORDINATION: iolrzy-nn-sygd test normal and uttw-dx-remy test normal OTHER: Keenly awake, alert, following commands well. Visual andrews full to confrontation. Mild transient disconjugate gaze at extrem es of gaze while tracking. Compensating. Skin: COMMON NORMALS: no rashes or lesions noted GENERAL SKIN EXAM: no rashes or lesions noted Data : 07/23/21 15:31 07/23/21 15:31 A&P Assessment and plan (1) Acute CVA (cerebrovascular accident): NIHSS 3, however, unsteady gait, feeling persistently dizzy with sitting up or standing on assessment with both me and subsequently with teleneurology. As per discussion of risks and benefits and consideration of TPA given limited nature of his symptoms he chooses to proceed with TPA. Blood pressure elevated 200/109, given 10 mg push of hydralazine, transfer to ICU, nicardipine drip additionally requested in case blood pressure still elevated. TPA requested. Monitor in ICU. Discussed also with his family. CTA head and neck obtained. No large vessel occlusion. Appears to have severe stenosis of paraophthalmic segment of right internal carotid artery. Focal moderate stenosis in paraophthalmic segment in the left internal carotid artery. In the neck, no occlusion, hypoplastic right vertebral artery. Focal mild stenosis at the origin of left vertebral artery. Monitor blood pressures, avoid low blood pressures. Long-term would benefit from optimization of blood pressure control. Pending TTE. Assess lipid profile, A1c. PT, OT, ST assessment. Follow-up with neurology. Status: Acute (2) CAD (coronary artery disease): Status post LAD stent. Received aspirin 325 mg, Plavix 600 mg. Hold additional antiplatelets until after reassessment with CT head at 24 hours post TPA. Continue statin. Beta-donald. Imdur. Status: Acute (3) Stented coronary artery: Status: Acute Consult Attestations Medical Necessity Statement: Admission of over 2 midnights continued for assessment of management following acute CVA, coronary stenting. Coding Level of Care Code Acute Junior Recruiter for [facility] Fwd Diagnoses Acute CVA (cerebrovascular accident) I63.9 CAD (coronary artery disease) I25.10 Stented coronary artery Z95.5
--- NOTE | 2021-07-23 17:51 | PC.NURSE ---
Alicia sent home with family. Clothes and shoes in closet. Family at bedside.
--- NOTE | 2021-07-23 18:01 | P.EN_ITS ---
Event Note Event Note: Patient had a coronary angiogram performed earlier today. It showed severe 95% proximal LAD stenosis. He underwent successful revascularization with CASSIUS x1. 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 On the floor he started noticing nausea 4 hours post procedure. Later developed occasional dizziness. At around 3 PM, I was called that he stood up to go to the bathroom and felt dizzy with double vision. I assessed the patient who was having diplopia, nausea and vomiting. No significant motor or sensory changes were noted. He was hypertensive. We activated stroke alert. He was emergently taken to CT suite and had CT head and CTA performed. Hospitalist team was also consulted and Dr. Magallanes assessed the patient. Neurology was consulted at [facility] and after their evaluation plan is to proceed with TPA. Patient is being transferred to ICU. As he is hypertensive, he will receive IV hydralazine to lower the blood pressure before initiation of TPA. Patient's family and patient updated about today's events.
--- NOTE | 2021-07-23 18:29 | PC.NURSE ---
Radial site started bleeding. Manual pressure held. TR band reapplied. 18ml air instilled per orders. Bleeding controlled at this time. Pt using urinal. Will monitor.
--- NOTE | 2021-07-23 18:35 | PC.NURSE ---
1833 2cc removed from TR band. Hand darkened, pt able to feel. Neurochecks WNL.
[2021-07-23] MEDS: ondansetron 2 mg/ML SDV 2 mL 4 MG IVP (18:52)
[2021-07-23] MEDS: metoclopramide 5 mg/mL SDV 2 mL IVP (20:10)
[2021-07-23] MEDS: sodium chloride 0.9% 1,000 ML 50 ML IV (20:11)
--- NOTE | 2021-07-23 22:00 | PC.NURSE ---
After deinflating TR band per protocol TR band is removed with pressure dressing in place. NO s/s of bleeding at this time. No needs identified at this time.
[2021-07-24] VITALS (95 sets, daily range): BP systolic 103–173; BP diastolic 48–93; PULSE 64–94; RESP 0–29; TEMP 36.3–37.1; O2SAT 87–97
[2021-07-24 05:14] LABS: Basophils # 0.1 10^3/uL (0.0-0.1); Basophils % 0.5 %; Eosinophils # 0.3 10^3/uL (0.0-0.8); Eosinophils % 2.2 %; Hematocrit 47.7 % (42.0-52.0); Lymphocytes # 2.8 10^3/uL (0.8-4.8); Lymphocytes % 21.3 %; Mean Corpuscular HGB Conc 33.5 g/dL (30.0-36.0); Mean Corpuscular Hemoglobin 29.5 pg (28.0-34.0); Mean Platelet Volume 11.5 fL (7.4-10.4); Monocytes % 7.4 %; Neutrophils # 8.78 10^3/uL (1.8-7.7); Neutrophils % 68.2 %; Nucleated Red Blood Cells % 0 %; Platelet Count 200 10^3/cmm (130-400); Red Blood Count 5.42 10^6/uL (4.1-5.3); Red Cell Distribution Width 14.1 % (12.1-15.1); White Blood Count 12.9 10^3/uL (4.0-10.0)
[2021-07-24 05:38] LABS: Estmated Average Glucose 134; Hemoglobin A1C 6.3 % (4.0-6.0)
[2021-07-24 05:47] LABS: Anion Gap 16.9 (5-19); Blood Urea Nitrogen 12 mg/dL (8-23); Calcium 9.5 mg/dL (8.5-10.5); Carbon Dioxide 21 mmol/L (22-29); Chloride 104 mmol/L (98-107); Chol HDL Ratio 4.51 mg/dL (1.0-5.00); Cholesterol 176 mg/dL (0-200); Glomerular Filtration Rate 96.7 mL/min (90-130); Glucose 92 mg/dL (65-115); HDL Cholesterol 39 mg/dL (60-100); LDL Cholesterol Calculated 113 mg/dL (50-129); Osmolality Calculated 285 mOsm/kg (285-295); Potassium 3.9 mmol/L (3.5-5.1); Sodium 138 mmol/L (136-145); Triglycerides 119 mg/dL (0-150)
--- NOTE | 2021-07-24 08:00 | PC.NURSE ---
Diplopia reported by the patient. Nausea is under control currently. Patient has no other complaints at this time.
--- NOTE | 2021-07-24 08:26 | P.PN_ITS ---
Subjective Subjective: Patient had posterior circulation stroke post LAD PCI. On CT scan he has carotid artery disease and hypoplastic right vertebral artery. After neurology evaluation, patient was administered tPA. Today his dizziness improved but still has diplopia. Vitals/I&O/Wt Last Vital Signs Temp 97.8 F 07/24/21 07:00 Pulse 79 07/24/21 07:00 Resp 23 H 07/24/21 07:00 BP 156/84 07/24/21 07:00 Pulse Ox 92 07/24/21 07:00 07/23/21 07/24/21 07/24/21 22:59 06:59 14:59 Intake Total 1066.633 / 1426.633 Output Total 200 / 200 850 / 1050 Balance 866.633 / 1226.633 -850 / 376.633 Weight last 48 hrs Weight 215 lb Physical Exam Narrative: GENERAL: Patient is alert, awake and oriented x3. [] NECK: No jugular vein distension. [] HEENT: No cyanosis. No icterus. No pallor. [] HEART: Regular S1 and S2. No murmur, rub or gallop. [] LUNGS: Clear to auscultate bilaterally. [] ABDOMEN: Soft, nontender and nondistended. Positive bowel sounds. No guarding, rebound or tenderness. [] CENTRAL NERVOUS SYSTEM: Has diplopia, sensation and power are normal EXTREMITIES: Lower extremities with no edema bilaterally. Pulses palpable in the lower extremities, both dorsalis pedis and posterior tibial. [] Data : 07/24/21 04:36 07/24/21 04:36 A&P Assessment and plan (1) CAD (coronary artery disease): Status: Acute (2) Acute CVA (cerebrovascular accident): Status: Acute (3) Dyspnea on exertion: Status: Acute (4) Hypertension: Status: Acute Plan Patient had coronary angiogram with PCI of proximal LAD for severe LAD stenosis yesterday through right radial approach. He started noticing nausea and dizziness about 4 to 5 hours post procedure. Complained of diplopia about 6 hours post procedure. Stroke alert was called. After CTA was performed and neurology evaluated the patient, it was decided to administer TPA. Has dizziness as improved significantly however still has diplopia. Patient will need to be started back on aspirin and Plavix post CT scan today. Blood pressure control per neurology recommendations. High intensity statin therapy. Hospitalist service consulted for medical management. Appreciate their recommendations. Attestations Medical Necessity Statement*: Care expected to cross 2 midnights. Coding Level of Care Code Acute Store Receiving Specialist for Tadeo [facility] Diagnoses CAD (coronary artery disease) I25.10 Acute CVA (cerebrovascular accident) I63.9 Dyspnea on exertion R06.00 Hypertension I10
[2021-07-24] MEDS: metoprolol tartrate 25 mg Tablet PO (09:04)
[2021-07-24] MEDS: isosorbide mononitrate 20 mg Tablet PO (09:04)
--- NOTE | 2021-07-24 09:19 | CTR_ITS ---
PROCEDURE INFORMATION: Exam: CT Head Without Contrast Exam date and time: 07/24/2021 9:35 AM Age: 65 years old Clinical indication: Visual disturbance; Additional info: CVA S/P tpa, diplopia TECHNIQUE: Imaging protocol: Computed tomography of the head without contrast. Radiation optimization: All CT scans at this facility use at least one of these dose optimization techniques: automated exposure control; mA and/or kV adjustment per patient size (includes targeted exams where dose is matched to clinical indication); or iterative reconstruction. COMPARISON: CT head wo con* [id number] 07/23/2021 3:38 PM RADIATION DOSE METRICS: Total DLP (mGy-cm): 894.03 FINDINGS: Brain: Normal. No hemorrhage. Unremarkable white matter. No mass effect. Cerebral ventricles: No ventriculomegaly. Paranasal sinuses: Visualized sinuses are unremarkable. No fluid levels. Mastoid air cells: Visualized mastoid air cells are well aerated. Bones/joints: Unremarkable. No acute fracture. Soft tissues: Unremarkable. CT/CT head wo con* [id number] IMPRESSION: No acute intracranial abnormality.
--- NOTE | 2021-07-24 09:34 | P.PN_ITS ---
Subjective Subjective: This morning persistent diplopia. Denies headache. Denies any other change in symptoms. No chest pain or pressure. No shortness of breath. Vitals/I&O/Wt Last Vital Signs Temp 98.8 F 07/24/21 08:32 Pulse 85 07/24/21 09:00 Resp 17 07/24/21 09:00 BP 173/86 07/24/21 09:00 Pulse Ox 93 07/24/21 09:00 07/23/21 07/24/21 07/24/21 22:59 06:59 14:59 Intake Total 1066.633 / 1426.633 233 / 233 Output Total 200 / 200 850 / 1050 Balance 866.633 / 1226.633 -850 / 376.633 233 / 233 Weight last 48 hrs Weight 97.522 kg Physical Exam Narrative: at bedside Const: COMMON NORMALS: patient oriented x3 NUTRITIONAL APPEARANCE: overweight ORIENTATION/CONSCIOUSNESS: Yes awake HENMT: COMMON NORMALS: oropharynx normal Neck/C-Spine: COMMON NORMALS: no meningeal signs and no JVD Resp: COMMON NORMALS: normal respiratory effort and clear to auscultation bilaterally AUSCULTATION: clear to auscultation bilaterally Cardio: COMMON NORMALS: no JVD, regular rhythm, S1 normal heart sound present, S2 normal heart sound present and No murmurs present (Cardio) RHYTHM: regular rhythm HEART SOUNDS: S1 normal heart sound present and S2 normal heart sound present GI: COMMON NORMALS: Normal to inspection, nondistended, normoactive bowel sounds present, Soft to palpation and non-tender PALPATION: Yes Soft to palpation Extremity: COMMON NORMALS: no joint enlargement and no pedal edema OTHER: R wrist dressing, no bleeding Neuro: COMMON NORMALS: patient oriented x3 and moves all extremities MENINGEAL SIGNS: Yes no meningeal signs COORDINATION/BALANCE: itceeq-jf-bvcu test normal (Slow, minor dysmetria due to diplopia) and odlt-yv-lgnu test normal (Mildly slow) SPEECH: abnormal speech Details: slurred (mild) GAIT: Yes Shuffling gait present and Yes Staggering gait present SENSORY EXAM: Yes extremities (mildly diminished on R) and Normal double simultaneous stimulation for sensation; No sensory level loss detected MOTOR EXAM: 5/5 motor strength present throughout and Pronator motor function not present COORDINATION: eajulb-es-kmtb test normal (Slow, minor dysmetria due to diplopia) and wxph-ys-ckxt test normal (Mildly slow) OTHER: Keenly awake, alert, following commands well. Visual andrews full to confrontation. Diplopia at rest with disconjugate gaze making horizontal tracking difficult. Skin: COMMON NORMALS: no rashes or lesions noted GENERAL SKIN EXAM: no rashes or lesions noted Data : 07/24/21 04:36 07/24/21 04:36 A&P Assessment and plan (1) Acute CVA (cerebrovascular accident): Diplopia unfortunately returned, remains at rest. Noted mildly disconjugate gaze. At time corrects. Repeat CT head currently to exclude hemorrhagic transformation. Subsequent CT head at 24 hours tonight at 5 PM. At that time resume antiplatelet medications. Discussed with him and his management of risk factors to reduce future risks of cardiovascular disease. He does have prediabetes, A1c 6.3. Discussed with them. Change to CC diet. Continue statin. PT, OT, ST assessment. May benefit from eyepatch, intermittently changing his position. CTA head and neck obtained. No large vessel occlusion. Appears to have severe stenosis of paraophthalmic segment of right internal carotid artery. Focal moderate stenosis in paraophthalmic segment in the left internal carotid artery. In the neck, no occlusion, hypoplastic right vertebral artery. Focal mild sten osis at the origin of left vertebral artery. Follow-up with neurology. Status: Acute (2) CAD (coronary artery disease): Status post LAD stent. Received aspirin 325 mg, Plavix 600 mg. Hold additional antiplatelets until after reassessment with CT head at 24 hours post TPA. Continue statin. Beta-donald. Imdur. Status: Acute (3) Stented coronary artery: Status: Acute Attestations Medical Necessity Statement*: Continue admission for cyst management following CVA, tPA. Coding Level of Care Code Acute Basic Acoustic Analyst for dev [place] Diagnoses Acute CVA (cerebrovascular accident) I63.9 CAD (coronary artery disease) I25.10 Stented coronary artery Z95.5
[2021-07-24 11:18] LABS: Glucose Point of Care 174 mg/dL (70-110)
[2021-07-24] MEDS: ondansetron 2 mg/ML SDV 2 mL 4 MG IVP (11:57)
--- NOTE | 2021-07-24 17:00 | CTR_ITS ---
PROCEDURE INFORMATION: Exam: CT Head Without Contrast Exam date and time: 07/24/2021 4:05 PM Age: 65 years old Clinical indication: Abnormal findings; Abnormal radiologic findings of head/skull; Not specified; Patient HX: Post tpa f/u; Additional info: S/P tpa TECHNIQUE: Imaging protocol: Computed tomography of the head without contrast. Radiation optimization: All CT scans at this facility use at least one of these dose optimization techniques: automated exposure control; mA and/or kV adjustment per patient size (includes targeted exams where dose is matched to clinical indication); or iterative reconstruction. COMPARISON: CT head wo con* [id number] 07/24/2021 9:35 AM RADIATION DOSE METRICS: Total DLP (mGy-cm): 1023.58 FINDINGS: Brain: Mild volume loss and white matter disease are identified. There is no acute infarct or edema. No hemorrhage. Cerebral ventricles: No ventriculomegaly. Paranasal sinuses: There is opacification of the left maxillary sinus. Mastoid air cells: Visualized mastoid air cells are well aerated. Bones/joints: Unremarkable. No acute fracture. Soft tissues: Unremarkable. CT/CT head wo con* [id number] IMPRESSION: There are no acute concerning abnormalities.
[2021-07-24] MEDS: sodium chloride 0.9% 1,000 ML 50 ML IV (17:22)
--- NOTE | 2021-07-24 17:57 | NUR.SHIFT ---
Shift Note Frequent safety and comfort rounds continue. Orders and/or nursing care completed as indicated. Patient monitored for response to intervention and treatment(s). Education provided includes Pre-Diabetes teaching including testing, dietary and health promotion. Patient and family seem to respond to teaching and have a willingness to learn. Will continue to monitor for stroke signs. Patient continues to present with diplopia and alternating eye patches seems to help with discomfort.
[2021-07-24] MEDS: clopidogrel 75 mg Tablet PO (18:41)
[2021-07-24] MEDS: aspirin 81 mg EC Tablet PO (18:41)
[2021-07-24] MEDS: atorvastatin 40 mg Tablet PO (20:16)
[2021-07-25] VITALS (15 sets, daily range): BP systolic 116–160; BP diastolic 49–105; PULSE 63–80; RESP 12–24; TEMP 36.7–36.9; O2SAT 89–94
[2021-07-25 04:44] LABS: Basophils # 0.1 10^3/uL (0.0-0.1); Basophils % 0.6 %; Eosinophils # 0.3 10^3/uL (0.0-0.8); Eosinophils % 2.5 %; Hematocrit 46.7 % (42.0-52.0); Hemoglobin 15.3 g/dL (11.7-16.6); Lymphocytes # 2.2 10^3/uL (0.8-4.8); Lymphocytes % 19.5 %; Mean Corpuscular HGB Conc 32.8 g/dL (30.0-36.0); Mean Corpuscular Hemoglobin 28.5 pg (28.0-34.0); Mean Corpuscular Volume 87.1 fl (80-94); Mean Platelet Volume 12.2 fL (7.4-10.4); Monocytes # 0.9 10^3/uL (0.2-0.9); Monocytes % 7.6 %; Neutrophils % 69.4 %; Nucleated Red Blood Cells % 0 %; Platelet Count 193 10^3/cmm (130-400); Red Blood Count 5.36 10^6/uL (4.1-5.3); Red Cell Distribution Width 13.7 % (12.1-15.1); White Blood Count 11.4 10^3/uL (4.0-10.0)
[2021-07-25 05:09] LABS: Anion Gap 12.8 (5-19); Blood Urea Nitrogen 17 mg/dL (8-23); Calcium 9.4 mg/dL (8.5-10.5); Carbon Dioxide 23 mmol/L (22-29); Chloride 106 mmol/L (98-107); Glomerular Filtration Rate 74.8 mL/min (90-130); Glucose 107 mg/dL (65-115); Osmolality Calculated 288 mOsm/kg (285-295); Potassium 3.8 mmol/L (3.5-5.1); Sodium 138 mmol/L (136-145)
[2021-07-25] MEDS: isosorbide mononitrate 20 mg Tablet PO (08:05)
[2021-07-25] MEDS: metoprolol tartrate 25 mg Tablet PO (08:06)
[2021-07-25] MEDS: aspirin 81 mg EC Tablet PO (08:06)
--- NOTE | 2021-07-25 10:01 | PM.DCS ---
Discharge Providers Date of Admission: 07/23/21 16:52 Date of Discharge: July 25, 2021 Attending Provider at Admission: Alex Cao M.D Attending Provider at Discharge: Alex Cao M.D Primary Care Provider: Brice Sanderson MD Diagnoses at Discharge Discharge Diagnosis (1) Acute CVA (cerebrovascular accident): Status: Acute (2) CAD (coronary artery disease): Status: Acute (3) Stented coronary artery: Status: Acute Reason for Visit Reason for Visit: 59656 i21.4 Hospital Course Hospital Course Pleasant 65-year-old gentleman with history of hypertension, history of CVA at age of 18, with left side residual weakness he reports moderate, for a year after the stroke, but subsequently with mild residual weakness, underwent elective coronary angiogram today with PCI with stenting of LAD on 07/23. During hospitalization he began experiencing severe diplopia with nausea and vomiting, with dysmetria, as well as difficulty walking. He was assessed during stroke code with noted unremarkable CT of the head. He was also assessed by teleneurology, and on discussion decision was made to proceed with TPA due to disabling nature of the acute stroke. He was monitored and intensive care unit. His symptoms of vertigo, diplopia addressed had initially resolved, but subsequently transiently reappeared despite TPA. Repeat CT of the head was unremarkable. He was resumed on antiplatelet medications with aspirin, Plavix, started on atorvastatin. He is noted to also have prediabetes, A1c of 6.3. He will need long-term optimization of risk factors of cardiovascular disease as discussed with him and his . Today he had additional improvement in his symptoms with he states complete resolution of diplopia. Denies vertigo. He did well with physical therapy, with recommendation for home exercise program. He is otherwise doing well without any chest pain or pressure, no shortness of breath. Mild bruising is noted at the right wrist, without pulsatile mass. He knows to seek attention in case there are concerning symptoms in her wrist, chest pain pressure, or strokelike symptoms. He is asked to follow-up with both cardiology and neurology as outpatient. Physical Exam Narrative: at bedside Const: COMMON NORMALS: patient oriented x3 NUTRITIONAL APPEARANCE: overweight ORIENTATION/CONSCIOUSNESS: Yes awake OTHER: [place] at bedside HENMT: COMMON NORMALS: oropharynx normal Neck/C-Spine: COMMON NORMALS: no meningeal signs and no JVD Resp: COMMON NORMALS: normal respiratory effort and clear to auscultation bilaterally AUSCULTATION: clear to auscultation bilaterally Cardio: COMMON NORMALS: no JVD, regular rhythm, S1 normal heart sound present, S2 normal heart sound present and No murmurs present (Cardio) RHYTHM: regular rhythm HEART SOUNDS: S1 normal heart sound present and S2 normal heart sound present GI: COMMON NORMALS: Normal to inspection, nondistended, normoactive bowel sounds present, Soft to palpation and non-tender PALPATION: Yes Soft to palpation Extremity: COMMON NORMALS: no joint enlargement and no pedal edema OTHER: R wrist dressing, no bleeding Neuro: COMMON NORMALS: patient oriented x3 and moves all extremities MENINGEAL SIGNS: Yes no meningeal signs COORDINATION/BALANCE: lebedh-om-ysfr test normal and moln-dr-cqno test normal SPEECH: speech normal SENSORY EXAM: Yes extremities (mildly diminished on R) and Normal double simultaneous stimulation for sensation; No sensory level loss detected MOTOR EXAM: 5/5 motor strength present throughout and Pronator motor function not present COORDINATION: ukkbrp-kn-swoi test normal and qcut-if-ccrj test normal OTHER: Keenly awake, alert, following commands well. Visual andrews full to confrontation. Resolved disconjugate gaze. Today tracks well horizontally. Skin: COMMON NORMALS: no rashes or lesions noted GENERAL SKIN EXAM: no rashes or lesions noted Discharge Data Studies Completed and Pending Completed Studies During Hospitalization Category Date Time Status CT angio head neck [CT angio headneck* [id number]] Cat Scan 07/23/21 15:[address] head wo con* [id number] Routine Cat Scan 07/24/21 09:[address] head wo con* [id number] Routine Cat Scan 07/24/21 17:[address] head wo con* [id number] Stat Cat Scan 07/23/21 15:40 Completed US echo complete [CV. echo complete* [id number]] Routine Ultrasound 07/23/21 15:09 Completed Pending at discharge Category Date Time Status ELECTRICAL SIGN WIRER request for service Routine Exams 07/23/21 06:00 Taken Basic Metabolic Panel AM LABS Lab 07/26/21 04:00 Ordered Basic Metabolic Panel AM LABS Lab 07/27/21 04:00 Ordered Complete Blood Count w/Auto AM LABS Lab 07/26/21 04:00 Ordered Complete Blood Count w/Auto AM LABS Lab 07/27/21 04:00 Ordered Radiology Impressions Head/Neck CTA 07/23/21 15:34 IMPRESSION: 1. No large vessel occlusion. 2. Severe stenosis of the paraophthalmic segment of the right internal carotid artery. 3. Focal moderate stenosis in the paraophthalmic segment of the left internal carotid artery. IMPRESSION: 1. No occlusion. 2. Hypoplastic right vertebral artery. 3. Focal mild stenosis at the origin of the left vertebral artery. REFERENCES: NASCET CRITERIA. The degree of internal carotid artery stenosis is based on NASCET criteria. Normal is no stenosis. Mild is less than 50% stenosis. Moderate is 50-69% stenosis. Severe is 70% to 99% stenosis. Total occlusion is no detectable patent lumen. Head CT 07/24/21 17:00 IMPRESSION: There are no acute concerning abnormalities. Laboratory Results WBC 11.4 10^3/uL (4.0-10.0) H 07/25/21 04:09 RBC 5.36 10^6/uL (4.1-5.3) H 07/25/21 04:09 Hgb 15.3 g/dL (11.7-16.6) 07/25/21 04:09 Hct 46.7 % (42.0-52.0) 07/25/21 04:09 MCV 87.1 fl (80-94) 07/25/21 04:09 MCH 28.5 pg (28.0-34.0) 07/25/21 04:09 MCHC 32.8 g/dL (30.0-36.0) 07/25/21 04:09 RDW 13.7 % (12.1-15.1) 07/25/21 04:09 Plt Count 193 10^3/cmm (130-400) 07/25/21 04:09 MPV 12.2 fL (7.4-10.4) H 07/25/21 04:09 Neut % (Auto) 69.4 % 07/25/21 04:09 Lymph % (Auto) 19.5 % 07/25/21 04:09 [place] % (Auto) 7.6 % 07/25/21 04:09 Eos % (Auto) 2.5 % 07/25/21 04:09 Baso % (Auto) 0.6 % 07/25/21 04:09 Neut # (Auto) 7.90 10^3/uL (1.8-7.7) H 07/25/21 04:09 Lymph # (Auto) 2.2 10^3/uL (0.8-4.8) 07/25/21 04:09 [place] # (Auto) 0.9 10^3/uL (0.2-0.9) 07/25/21 04:09 Eos # (Auto) 0.3 10^3/uL (0.0-0.8) 07/25/21 04:09 Baso # (Auto) 0.1 10^3/uL (0.0-0.1) 07/25/21 04:09 Nucleated RBC % (auto) 0 % 07/25/21 04:09 Nucleated RBCs # 0.0 /100WBC 07/25/21 04:09 Sodium 138 mmol/L (136-145) 07/25/21 04:09 Potassium 3.8 mmol/L (3.5-5.1) 07/25/21 04:09 Chloride 106 mmol/L (98-107) 07/25/21 04:09 Carbon Dioxide 23 mmol/L (22-29) 07/25/21 04:09 Anion Gap 12.8 (5-19) 07/25/21 04:09 BUN 17 mg/dL (8-23) 07/25/21 04:09 Creatinine 1.0 mg/dL (0.7-1.2) 07/25/21 04:09 GFR Calculation 74.8 mL/min (90-130) L 07/25/21 04:09 Glucose 107 mg/dL (65-115) 07/25/21 04:09 POC Glucose 174 mg/dL (70-110) H 07/24/21 11:11 Estimat Average Glucose 134 07/24/21 04:36 Hemoglobin A1c 6.3 % (4.0-6.0) H 07/24/21 04:36 Calculated Osmolality 288 mOsm/kg (285-295) 07/25/21 04:09 Calcium 9.4 mg/dL (8.5-10.5) 07/25/21 04:09 Troponin T Gen 5 ng/L 13 ng/L (0-15) 07/23/21 15:31 Triglycerides 119 mg/dL (0-150) 07/24/21 04:36 Cholesterol 176 mg/dL (0-200) 07/24/21 04:36 LDL Cholesterol, Calc 113 mg/dL (50-129) 07/24/21 04:36 HDL Cholesterol 39 mg/dL (60-100) L 07/24/21 04:36 LDL/HDL Ratio 2.90 RATIO (0.00-3.22) 07/24/21 04:36 Cholesterol/HDL Ratio 4.51 mg/dL (1.0-5.00) 07/24/21 04:36 Vitals Last Vital Signs Temp 98.4 F 07/25/21 09:00 Pulse 71 07/25/21 09:00 Resp 24 H 07/25/21 03:00 BP 116/63 07/25/21 09:00 Pulse Ox 91 07/25/21 06:00 Discharge Plan Discharge Patient Disposition: Home Condition: Stable Prescriptions: New (DME) diabetic supplies, miscellan. Misc See Rx Instructions .Route Qty: 1 0RF Rx Instructions: As directed atorvastatin 40 mg Tablet 40 mg PO BEDTIME Qty: 90 0RF clopidogrel 75 mg Tablet 75 mg PO Q24H Qty: 90 0RF aspirin 81 mg Tablet,Delayed Release (Dr/Ec) 81 mg PO DAILY Qty: 90 0RF Continued metoprolol tartrate 25 mg tablet 25 mg PO DAILY 0RF isosorbide mononitrate 20 mg tablet 20 mg PO DAILY 0RF Rx Instructions: give doses 7 hrs apart nitroglycerin [Nitrostat] 0.4 mg Tablet, Sublingual 0.4 mg SUBLINGUAL Q5M PRN (Reason: Chest Pain) 0RF Rx Instructions: do not exceed 3 doses per episode Discontinued aspirin 325 mg Tablet 325 mg PO ONCE 0RF Discharge Orders: Discharge Order (Routine); Ordered 07/25/21 Ordered By: Antonio Magallanes Referrals: Miranda Parson MD [Physician] - 1 week (cva) Alex Cao M.D [Physician] - 1 month Savannah Russell FNP [Nurse Practitioner] - 1 week Brice Sanderson MD [Primary Care Provider] - 4-7 days Discharge Diet: Cardiac and Diabetic Discharge Activity: As per PT/OT instructions Patient Instructions: Aspirin (By mouth), Atorvastatin (By mouth), Clopidogrel (By mouth), Ischemic Stroke (GEN), Prediabetes (GEN), Coronary Artery Disease in Women (GEN), Carotid Artery Stent Placement (GEN) Activity Restrictions/Additional Instructions: Please measure your blood pressure and blood glucose twice a day, write down values to bring to your appointment. Discussed with your primary doctor regarding coronary disease, as well as stroke. Please follow-up also with cardiology and neurology. Discussed with your primary doctor regarding prediabetes. Work with your providers to continue to reduce risk of cardiovascular disease. Avoid lifting more than 3 pounds in the next 2 days. In case you experience pain or notice pulsatile swelling in the right wrist, or notice loss of sensation or strength in your right hand, seek medical attention immediately. Discharge Attestations Time Spent in Discharge Care*: critical care time Quality Metrics Clinical Quality Measures [ Cerebrovascular Accident { Contraindication to Antithrombotic: None; antithrombotic prescribed; Contraindication to Anticoagulation: Overlap treatment not indicated; Contraindication to Statin: None; Statin prescribed;}] Coding Level of Care Code Acute [facility] DC note Diagnoses Acute CVA (cerebrovascular accident) I63.9 CAD (coronary artery disease) I25.10 Stented coronary artery Z95.5
--- NOTE | 2021-07-25 11:11 | PC.NURSE ---
Patient discharged per physician's orders. IVs removed, catheter intact. Pressure dressing applied, patient tolerated well. Education regarding new medications, stroke education, future follow up appointments given verbally and written to patient and . Patient and verbalized understanding. Patient ambulated to POV accompanied by this nurse, , and granddaughter. Prescriptions called into [facility] due to [facility] being closed on Sundays per patient's preference.
== END 2021-07-25 11:21 | disposition home or self-care (01) | DRG 246 ==
LOC: CSU 09:09 → ICU 16:51
PROVIDERS: Internal Medicine; Admitting Provider Internal Medicine; PCP Family Medicine; Visit Provider Internal Medicine
PROC: 027034Z Dilation of Coronary Artery, One Artery with Drug-eluting Intraluminal Device, Percutaneous Approach (ICD-10-PCS; principal; 2021-07-23 07:00)
PROC: 027034Z Dilation of Coronary Artery, One Artery with Drug-eluting Intraluminal Device, Percutaneous Approach (ICD-10-PCS; 2021-07-23 07:00)
DX: I25.10 Atherosclerotic heart disease of native coronary artery without angina pectoris (principal); I63.9 Cerebral infarction, unspecified; I69.954 Hemiplegia and hemiparesis following unspecified cerebrovascular disease affecting left non-dominant side; I97.820 Postprocedural cerebrovascular infarction following cardiac surgery; I25.2 Old myocardial infarction; I10 Essential (primary) hypertension; R29.703 NIHSS score 3; H53.2 Diplopia; R42 Dizziness and giddiness; R73.03 Prediabetes; I65.23 Occlusion and stenosis of bilateral carotid arteries
CPT/HCPCS: 36415; 36416; 70450; 70496; 70498; 80048; 80061; 82962; 83036; 84484; 85025; 85347; 85610; 87635; 92610; 93005; 93306; 93454; 97110; 97116; 97162; 97165; C1725; C1769; C1874; C1887; C1894; C9600; G0378; J0360; J1200; J1644; J2250; J2405; J2765; J2997; J3010; J3490; J7030; Q0163; Q9967

== ENCOUNTER → 2021-07-27 09:05 | Outpatient (BNVA) | payer MEDICARE, SELFPAY | PROVIDERS: PCP Family Medicine; Visit Provider Nurse Practitioner Family | DX: I25.10 Atherosclerotic heart disease of native coronary artery without angina pectoris (principal); I10 Essential (primary) hypertension; Z95.5 Presence of coronary angioplasty implant and graft; Z86.73 Personal history of transient ischemic attack (TIA), and cerebral infarction without residual deficits; I25.2 Old myocardial infarction | CPT/HCPCS: 36415; 80048; 99214 ==

== ENCOUNTER → 2021-08-06 08:58 | Outpatient (BNVA) | payer MEDICARE, SELFPAY | PROVIDERS: PCP Family Medicine; Referring Provider Internal Medicine; Visit Provider Nurse Practitioner | DX: I65.23 Occlusion and stenosis of bilateral carotid arteries (principal); I10 Essential (primary) hypertension; Z86.73 Personal history of transient ischemic attack (TIA), and cerebral infarction without residual deficits; Z79.01 Long term (current) use of anticoagulants | CPT/HCPCS: 99204 ==

== ENCOUNTER → 2021-08-10 13:30 | Outpatient (BNVA) | payer MEDICARE, SELFPAY | PROVIDERS: PCP Family Medicine; Visit Provider Internal Medicine Cardiovascular Disease | DX: I63.9 Cerebral infarction, unspecified (principal); R00.1 Bradycardia, unspecified | CPT/HCPCS: 93270 ==

== ENCOUNTER 2021-09-01 15:27 | Outpatient (CLI) | payer MEDICARE, SELFPAY ==
--- NOTE | 2021-09-01 16:00 | MR_ITS ---
WS: [id number] MRI BRAIN WITHOUT CONTRAST HISTORY: I63.9 - Cerebral infarction, unspecified COMPARISON: CT head 07/24/2021 TECHNIQUE: Diffusion imaging, multiplanar T1, T2 and FLAIR imaging obtained. No evidence for acute infarct or hemorrhage. Frausto-white matter differentiation is normal. Mild atrophy and very mild small vessel ischemic disease. No prior infarct. Ventricles and extra-axial spaces are normal. No inferior displacement of cerebellar tonsils. The sella turcica and pituitary gland are unremarkabl e. Dural venous sinuses and [place] demonstrate no abnormality on this unenhanced studies. Paranasal sinuses: Clear. Mastoid air cells: Normal. Calvarium and scalp: Intact. MR/MR head wo con* [id number] IMPRESSION: 1. No acute infarct. 2. Mild cerebral atrophy and mild small vessel ischemic disease.
== END 2021-09-01 15:28 | disposition home or self-care (01) ==
PROVIDERS: PCP Family Medicine; Visit Provider Nurse Practitioner
DX: I63.9 Cerebral infarction, unspecified (principal)
CPT/HCPCS: 70551

== ENCOUNTER → 2021-09-09 12:09 | Outpatient (BNVA) | payer MEDICARE, SELFPAY | PROVIDERS: PCP Family Medicine; Visit Provider Internal Medicine | DX: I25.10 Atherosclerotic heart disease of native coronary artery without angina pectoris (principal); I10 Essential (primary) hypertension | CPT/HCPCS: 99214 ==

== ENCOUNTER → 2022-02-08 08:23 | Outpatient (BNVA) | payer MEDICARE, SELFPAY | PROVIDERS: PCP Family Medicine; Visit Provider Podiatrist Foot & Ankle Surgery | DX: E11.8 Type 2 diabetes mellitus with unspecified complications (principal); E11.40 Type 2 diabetes mellitus with diabetic neuropathy, unspecified; M21.42 Flat foot [pes planus] (acquired), left foot; M21.41 Flat foot [pes planus] (acquired), right foot; M21.611 Bunion of right foot; M21.612 Bunion of left foot | CPT/HCPCS: 99204 ==

== ENCOUNTER 2022-02-22 13:07 | Outpatient (CLI) | payer MEDICARE, SELFPAY ==
--- NOTE | 2022-02-22 13:23 | CT_ITS ---
WS: [id number] CT ABDOMEN AND PELVIS WITH CONTRAST HISTORY: LEFT LOWER QUAD PAIN TECHNIQUE: Imaging performed of the abdomen and pelvis with IV contrast. Single phase imaging of the abdomen. Coronal and sagittal reformats are submitted. All CT scans at [facility] use at [address] one of these dose optimization techniques: automated exposure control; mA and/or kV adjustment per patient size (includes targeted exams where dose is matched to clinical indication); or iterative re construction. IV CONTRAST: Omnipaque 350; 95 mL IV. Oral contrast: No DLP: 1266.78 mGy.cm COMPARISON: None available. Lower thorax: Bilateral linear atelectasis at the lung bases. Heart is normal size. No hiatal hernia. Liver/biliary system: Normal size with no intrahepatic dilatation. Gallbladder: Normal. No gallstones or wall thickening. No pericholecystic fluid. Pancreas: Normal size pancreas and pancreatic duct. No adjacent inflammation. Spleen: Normal size spleen. No mass or infarct. Adrenal glands: Normal. Right kidney: Normal. Left kidney: Normal size kidney. Scattered hypodensities are too small to characterize. No obstructio n or solid mass identified. Aorta: Mild atherosclerosis with no aneurysm. Lymphadenopathy: None. Free fluid: None. GI tract: Normal stomach. No small bowel obstruction. The appendix is not identified. No secondary fi ndings of appendicitis. No colon obstruction. Numerous diverticula beginning in the descending and si gmoid colon. No CT evidence for acute diverticulitis. No abscess. Abdominal wall: Focal inflammation at the level of the umbilicus. There is a soft tissue mass with di splacement of the omentum just deep to the umbilicus consistent with an area of fat necrosis. Pelvis: No free fluid. Urinary bladder is minimally distended. Bones: Mixed osseous density within the sacrum. There are sclerotic and lytic changes. No prior study for comparison. CT/CT abdomen pelvis w con* [id number] IMPRESSION: 1. Sigmoid diverticulosis without evidence for acute diverticulitis. 2. Omental stranding just deep to the umbilicus with mild inflammatory changes extending to the umbilicus. Most consistent with an area of fat necrosis. 3. The appendix is not identified. 4. Mixed sclerotic and lytic changes within the sacrum. Recommend nuclear medi cine bone scan imaging to evaluate for neoplastic process. No prior studies for comparison. This could be a chronic finding.
[2022-02-22] MEDS: iohexol 350 mg/mL 100 mL Btl IV (14:10)
== END 2022-02-22 13:08 | disposition home or self-care (01) ==
LOC: RAD 13:08
PROVIDERS: PCP Family Medicine; Visit Provider Family Medicine
DX: R10.32 Left lower quadrant pain (principal); K57.30 Diverticulosis of large intestine without perforation or abscess without bleeding
CPT/HCPCS: 74177

== ENCOUNTER → 2022-05-10 08:17 | Outpatient (BNVA) | payer MEDICARE, SELFPAY | PROVIDERS: PCP Family Medicine; Visit Provider Podiatrist Foot & Ankle Surgery | DX: E11.8 Type 2 diabetes mellitus with unspecified complications (principal); M21.612 Bunion of left foot; M21.611 Bunion of right foot; E11.40 Type 2 diabetes mellitus with diabetic neuropathy, unspecified; M21.42 Flat foot [pes planus] (acquired), left foot; M21.41 Flat foot [pes planus] (acquired), right foot | CPT/HCPCS: 99214 ==

== ENCOUNTER 2022-05-16 07:50 | Outpatient (CLI) | payer MEDICARE, SELFPAY ==
--- NOTE | 2022-05-16 07:55 | NM_ITS ---
WS: [id number] NUCLEAR MEDICINE BONE SCAN Radiopharmaceutical: 24.3 Tc-99m MDP mCi IV Injection site: antecubital Postinjection imaging delay: 1 hr CLINICAL INFORMATION: LYTIC LESIONS ON XRAY COMPARISON: CT February 22, 2022 FINDINGS: Bone lesions: Diffuse radiotracer uptake involving the sacrum worse involving the midline and RIGHT h emisacrum. Soft tissue contours: Normal. Kidneys: Normal. Other findings: Degenerative type uptake involving both AC joints and sternoclavicular joints. Degene rative uptake involving the bilateral knees and ankles. NM/NM bone scan whole body* [id number] IMPRESSION: Diffuse radiotracer uptake involving the sacrum corresponds to findings on the prior CT. Differential considerations include metastatic disease, multiple myel johana, and lymphoma. Additional less likely considerations include Paget's disease or insufficiency fractures. Recommend correlation with history of malignancy. PET scan could be obtained to evaluate for occult malignancy.
== END 2022-05-16 07:51 | disposition home or self-care (01) ==
LOC: RAD 07:50
PROVIDERS: PCP Family Medicine; Visit Provider Family Medicine
DX: M89.9 Disorder of bone, unspecified (principal)
CPT/HCPCS: 78306; A9561

== ENCOUNTER → 2022-06-13 13:52 | Outpatient (BNVA) | payer MEDICARE, SELFPAY | PROVIDERS: PCP Family Medicine; Visit Provider Internal Medicine | DX: I10 Essential (primary) hypertension (principal); I25.10 Atherosclerotic heart disease of native coronary artery without angina pectoris | CPT/HCPCS: 99214 ==

== ENCOUNTER 2022-06-22 10:54 | Day surgery (SDC) | payer MEDICARE, SELFPAY ==
[2022-06-20 10:30] VITALS: BMI 30.8
[2022-06-22] VITALS (10 sets, daily range): BP systolic 94–171; BP diastolic 52–84; PULSE 53–60; RESP 14–18; TEMP 36.1–36.6; O2SAT 92–100
--- NOTE | 2022-06-22 | CT_ITS ---
WS: [id number] CT- GUIDED BIOPSY BONE, PELVIS. HISTORY: bone lesion Procedure, risks, and complications are explained to the patient. Consent was obtained. Skin is clean sed with ChloraPrep and anesthetized with 1% buffered lidocaine. Prior imaging studies are reviewed from 05/16/2022 and 02/22/2022. With the patient in prone position the sacral lesions are identified. Most concerning area of abnorma lity is in the RIGHT sacrum which will be targeted. Patient is under conscious sedation for this exam ination. Dermatome is made. 14-gauge bone biopsy needle is utilized to perform 2 core biopsies. Neith er core is very large. The needle did appear embedded at a good depth within the lesion. Specimen is placed on Telfa and in a sterile container for pathology. Sterile bandages placed across the biopsy s ite. No complications were observed on this examination. Patient will be discharged him on our post proced ure. CT/CT biopsy bone deep IMPRESSION: 1. Uncomplicated bone biopsy RIGHT sacrum. Specimen placed within a sterile co ntainer on a damp Telfa pad as requested by pathology. 2. Pathology results are pending.
--- NOTE | 2022-06-22 11:21 | CT_ITS ---
WS: [id number] CT- GUIDED BIOPSY BONE, PELVIS. HISTORY: bone lesion Procedure, risks, and complications are explained to the patient. Consent was obtained. Skin is clean sed with ChloraPrep and anesthetized with 1% buffered lidocaine. Prior imaging studies are reviewed from 05/16/2022 and 02/22/2022. With the patient in prone position the sacral lesions are identified. Most concerning area of abnorma lity is in the RIGHT sacrum which will be targeted. Patient is under conscious sedation for this exam ination. Dermatome is made. 14-gauge bone biopsy needle is utilized to perform 2 core biopsies. Neith er core is very large. The needle did appear embedded at a good depth within the lesion. Specimen is placed on Telfa and in a sterile container for pathology. Sterile bandages placed across the biopsy s ite. No complications were observed on this examination. Patient will be discharged him on our post proced ure.
[2022-06-22] MEDS: sodium chloride 0.9% 1,000 ML 30 ML IV (11:29)
[2022-06-22] MEDS: fentaNYL 50 mcg/mL INJ 2mL 25 MCG IVP ×3 (13:05→13:15)
[2022-06-22] MEDS: midazolam 1 mg/mL INJ 2 mL IVP ×3 (13:05→13:15)
[2022-06-22 17:48] LABS: Glucose Point of Care 94 mg/dL (70-110)
== END 2022-06-22 14:20 | disposition home or self-care (01) ==
PROVIDERS: PCP Family Medicine; Visit Provider Family Medicine
DX: M89.9 Disorder of bone, unspecified (principal)
CPT/HCPCS: 20225; 36416; 77012; 82962; 85610; 88307; 88311; 96374; 96375; 99152; J2250; J3010; J7030

== ENCOUNTER 2022-07-04 13:38 | Inpatient (IN) | payer MEDICARE, SELFPAY ==
[2022-07-04] VITALS (41 sets, daily range): BP systolic 115–165; BP diastolic 78–132; PULSE 98–115; RESP 15–44; TEMP 36.6; O2SAT 84–95; BMI 30.8
--- NOTE | 2022-07-04 13:46 | ECG_ITS ---
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 Measurements Intervals [place] Rate: 96 P: -53 CA: 260 QRS: 90 QRSD: 7 T: 244 QT: 311 QTc: 394 Interpretive Statements Sinus RHYTHM WITH FIRST DEGREE AV BLOCK WITH FREQUENT ECTOPIC PREMATURE COMPLEXES RIGHT ATRIAL ENLARGEMENT [0.3mV P-WAVE] POSSIBLE LEFT ATRIAL ENLARGEMENT [-0.1mV P-WAVE IN V1/V2] LOW QRS VOLTAGE [QRS DEFLECTION < 0.5/1.0 mV IN LIMB/CHEST LEADS] ANTERIOR MYOCARDIAL INFARCTION , OF INDETERMINATE AGE [30 ms Q WAVE IN V3/V4, OR R < 0.2 mV IN V4] MARKED ST DEPRESSION, CONSIDER SUBENDOCARDIAL INJURY [0.2+ mV ST DEPRESSION] ACUTE VT Compared to ECG 07/23/2021 14:03:53 First degree AV block now present Atrial abnormality now present Electronically Signed On 07-05-2022 18:14:32 CLINICAL ACCOUNT EXECUTIVE by Karlos Amin M.D. [id number]
--- NOTE | 2022-07-04 13:57 | XACV_ITS ---
Exam Room: [facility] Ht: 175 cm Wt: 95 kg BSA: 2.18 m2 Gender: Male : 1955 Any Known Allergies: No known allergies Exam Priority: Routine Indication(s): - Acute anterior wall DC Procedure(s): Procedure Description: Diagnostic procedure Procedure Description: PCI procedure Procedure Description: PTCA Procedure Description: Coronary Angiography Brennan VILLANUEVA; Diagnostic Cath Status: Emergency Diagnostic Findings * Patient with previous stent in the LAD almost exactly 1 year ago. Was taken off aspirin and Plavix 2 or 3 weeks ago for a skin surgical procedure and was told not to restart the medications. Chest pain a few hours prior to presentation with ST elevation in the anterior precordial leads. Patient is extremely agitated. * Coronary angiography reveals right coronary artery dominance. The LAD is occluded at the ostium of the stent just past the origin of the LAD. The circumflex contains mild diffuse luminal irregularities. The right coronary artery is the dominant vessel and ends distally as the posterior descending artery and several posterior left ventricular branches and a large RV marginal branch. It was impossible to select the right coronary artery so a subselective injection was obtained. There are diffuse luminal irregularities. * Patient was extremely agitated, wanting to get off the bed, stating that he could not take it . Therefore, left ventriculography was not performed. Initially, I was able to enter the right radial artery with a needle however was not able to feed the wire. Patient had no radial pulse. The procedure was completed from the right common femoral artery. PCI Status: Emergency PCI LVEF Assessed: No PCI Indication: Immediate PCI for STEMI Interventional Findings * The LAD is occluded due to stent thrombosis. Balloon angioplasty was performed using a 3.0 mm balloon followed by 3.5 mm balloon. The vessel was open with good flow. Aggrastat was used. Despite the vessel being open the patient continued to be extremely agitated, complaining of 10 out of 10 chest pain and wanting to get off the bed prematurely. The vessel was open with brisk and GRETTA-3 flow at the end of the procedure. Decision for PCI with Surgical Consult: No PCI for Multi-vessel Disease: No Conclusions 1. Stent thrombosis of the LAD secondary to Plavix and aspirin removal. Successfully reopened with balloon angioplasty. Recommendations * Aggrastat and medical therapy. Reinstitution of aspirin and Plavix. Interventional RX Recommendation: medical therapy and/or counseling Diagnostic RX Recommendation: medical therapy and/or counseling Anticoagulation: Heparin, Tirofiban Pressures Phase:Rest AO : 208 / 111 ( 150 ) @ 2:24:00 PM 167 / 100 ( 130 ) @ 2:29:00 PM 140 / 97 ( 118 ) @ 2:32:00 PM Clinical Evaluation EBL: 5mL-10mL Procedural Details Pre-Procedure Time Out. Identified patient by full name and date of as verbalized by the patient/guarantor. Does the consent match the physician's order: N/A Emergent; Informed Consent not obtained due to time critical life threat. Accurate & Complete Informed Consent: N/A Emergent; Informed Consent not obtained due to time critical life threat. Inpatient/Outpatient History & Physical on Chart: N/A Emergent; Informed Consent not obtained due to time critical life threat. If H&P is completed, is and addenduem needed: N/A Emergent; Informed Consent not obtained due to time critical life threat; If yes, is the addendum complete: N/A Emergent; Informed Consent not obtained due to time critical life threat. Visualize and Verify Site with Patient/Guarantor: N/A. Relevant Radiology Images available: N/A Emergent; Informed Consent not obtained due to time critical life threat. Pre-op teaching completed and patient verbalized understanding. The risks, benefits, and alternatives of sedation and/or procedure were discussed by physician. The patient agrees to continue. Procedure started. [facility] Clinical Fraility Score: 3: Managing Well. 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 Chest Pain Symptom Assessment: Typical Angina Symptoms. Cardiovascular Instability: Yes, if yes, Persistant Ischemic Symptoms. Correct patient, site and procedure confirmed by cath team. Current diagnosis: STEMI. PERRLA. Strong, equal hand wing scorer bilaterally. Lungs clear x 5 lobes. PERRLA. Strong, equal hand wing scorer bilaterally. Lungs clear x 5 lobes. IV Site on Arrival: 18 gauge in the right anticubital. IV Site on Arrival: 20 gauge in the left anticubital. IV Fluids: 0.9% NaCl at KVO. 0 mL infused prior to laborer car barn. Pre Procedural Pulses: bilateral radial was 3+. Oxygen started at 3liters/min via nasal canula. right groin was prepped with chloroprep then draped in the usual sterile fashion. right radial was prepped with chloroprep then draped in the usual sterile fashion. Baseline sample Acquired. HR: 97 BPM. Physician notified. Patient's family in the laborer car barn waiting room. Dr. Amin will update at the completion of the procedure. Equipment: 6F - Radial. Cardiac Cath Pack. ACIST Manifold Kit Model BT 2000. Heparinized Saline (2 units/mL), 1000 mL bag. Physician arrived. Current Diagnosis : STEMI. Physician scrubbed in. Immediate Pre-Procedure Time Out. Correct Patient: N/A Emergent; Informed Consent not obtained due to time critical life threat; Correct Procedure: N/A Emergent; Informed Consent not obtained due to time critical life threat; Correct Site: N/A Emergent; Informed Consent not obtained due to time critical life threat; Correct Patient Position: N/A Emergent; Informed Consent not obtained due to time critical life threat; Correct Supplies: N/A Emergent; Informed Consent not obtained due to time critical life threat; Dried Flammable Prep: N/A Emergent; Informed Consent not obtained due to time critical life threat; Blood Products Available: N/A;. Lidocaine 1% infiltrated to the right radial. AP pads placed on the patient on arrival to the laborer car barn. Arterial access obtained, unable to thread wire. Needle and wire out. Dr. Amin holding manual pressure. Unable to obtain radial access. attempting to gain access in the Femoral artery. Add inventory: 6 fr femoral sheath, Sheath access needle. Lidocaine 1% infiltrated to the right groin. Arterial access obtained. TR band placed on the right wrist. Hemostasis obtained. PCI Indication: STEMI. Delay in PCI related to other reason: difficult vascular access. 6 russian XB 3 guide catheter was inserted over the exchange J wire. Guide catheter out. 6 russian XB 3.5 guide catheter was inserted over the exchange J wire. Cine of the LCA performed. [place] guidewire was advanced through the guide catheter to lesion in the prox LAD. Inflation number : 1 A AB TREK 3.00X20 RX BALLOON was prepped and advanced across the Prox LAD , then inflated to 8 STACI for 0:26 seconds. Inflation number: 2 The AB TREK 3.00X20 RX BALLOON was reinflated across the Prox LAD, to 13 STACI for 0:31 seconds. Balloon out. Results checked. Inflation number : 3 A AB TREK 3.50X15 RX BALLOON was prepped and advanced across the Prox LAD , then inflated to 8 STACI for 0:04 seconds. Inflation number: 4 The AB TREK 3.50X15 RX BALLOON was reinflated across the Prox LAD, to 8 STACI for 0:33 seconds. Results checked. Balloon out. Wire out. Guide catheter out. A 6 russian JR4 catheter in over the exchange J wire. Cineography of the RCA performed. PCI Indication : Immediate PCI for STEMI. A Suture was successful obtaining hemostatsis at the Right Femoral artery insertion site. Sheath(s) sutured into position with 2-0 silk and sterile 4x4's and Op-site applied over the site. No oozing or signs and symptoms of hematoma noted. Arterial sheath flushed and connected to tranducer and pressure bag with heparinized saline. Post Procedure: Pulses reassessed and unchanged. PERRLA. Strong, equal hand wing scorer bilaterally. No VTE prophylaxis required. Medication's Wasted: Nitro = 50 mg. Medication's Wasted: Heparin = 4000 units. Medication's Wasted: Other = Fentanyl 25 mcg. Total IV fluids: 64 mL. Post-op diagnosis: STEMI for in-stent thrombosis of the Prox LAD. Complications: Difficult vascular access. Estimated blood loss: 5mL-10mL. Responsiveness - Normal response to verbal stimuli; alert and oriented, PERRLA. Airway - Unaffected, no intervention required; spontaneous ventilation. Circulation: W/N/L, pulses unchanged. Nausea/Vomiting: No. Procedure completed. Patient transferred by bed to ICU. Access Site Site: Right Femoral artery Sheath Size: 6 Fr Hemostasis Method: Suture Hemostasis Success: Successful Procedure Medications Start: 2:11 PM Stop: 2:11 PM Medication: Plavix Amount: 300 mg Route: P.O. Start: 2:12 PM Stop: 2:12 PM Medication: Heparin Amount: 5000 units Route: I.V. Start: 2:13 PM Stop: 2:13 PM Medication: Versed Amount: 1 mg Route: I.V. Start: 2:13 PM Stop: 2:13 PM Medication: Fentanyl Amount: 50 mcg Route: I.V. Start: 2:23 PM Stop: 2:23 PM Medication: Hydralazine Amount: 20 mg Route: I.V. Start: 2:25 PM Stop: 2:25 PM Medication: Versed Amount: 1 mg Route: I.V. Start: 2:38 PM Stop: 2:38 PM Medication: Aggrastat 12.5 mg/250 mL Amount: 24 ml Route: I.V. bolus Start: 2:38 PM Stop: 2:38 PM Medication: Aggrastat 12.5 mg/250 mL Amount: 17.3 ml/hr Route: I.V. drip Start: 2:41 PM Stop: 2:41 PM Medication: Aggrastat 12.5 mg/250 mL Amount: 24 ml Route: I.C. Start: 2:41 PM Stop: 2:41 PM Medication: Fentanyl Amount: 25 mcg Route: I.V. Start: 2:43 PM Stop: 2:43 PM Medication: Versed Amount: 2 mg Route: I.V. I, the attending physician, have reviewed and verified all procedure medications. Yes, all medications given per verbal order History/Risk Factors Hypertension: Yes Dyslipidemia: No Peripheral Arterial Disease (PAD): No Myocardial Infarction (DC): Yes Obesity: Yes Renal Disease: No Tobacco Use: Never Prior Interventions PCI: Yes CABG: No Valve Surgery: No Date of PCI: 07/23/2021 Report Signatures Finalized by Dr. Karlos Amin MD on 07/04/2022 03:41 PM
[2022-07-04] MEDS: aspirin 325 mg Tablet (14:02)
--- NOTE | 2022-07-04 14:03 | W.ED.CHESTPA ---
HPI - Chest Pain General: Chief Complaint: Chest Pain Stated Complaint: chest pain Source: patient Mode of arrival: ambulatory History of Present Illness: 66-year-old male presents to the emergency room with severe chest pain that began approximately 1 hour prior to arrival he has a known history of coronary disease and about a year ago had a angiogram with stenting. He is having centralized chest pain right now radiating into his neck he is short of breath but not diaphoretic he is also very nauseous. Pain has not relented since it began he describes it as a crushing pain. MD complaint: chest pain Pertinent past history: coronary artery disease Onset (ago): hour(s) (1) Timing of current episode: episodic and still present Prior episodes: Yes Onset: during exertion Pain location: substernal Pain radiation: neck Severity: severe Quality: aching and heaviness Relieving factors: nothing Exacerbating factors: nothing Associated symptoms: Reports dyspnea and nausea; Deny abdominal pain, fever(s) or vomiting Review of Systems Const: Denies: fever(s), chills, body aches, change in appetite, fatigue or malaise Card: Reports: chest pain and dyspnea on exertion; Denies: edema or orthopnea Resp: Reports: dyspnea; Denies: productive cough or non-productive cough GI: Reports: nausea; Denies: abdominal pain, vomiting, hematemesis, coffee ground emesis, diarrhea, constipation, bloating, hematochezia or melena : Denies: flank pain, dysuria, urinary frequency or urinary urgency Skin/Breast: Denies: rash or pruritus [facility] [place] PFSH: Medical History CVA (cerebral vascular accident) At 18 Dyspnea on exertion Hypertension Surgical History History of percutaneous coronary intervention Stented coronary artery Social History Smoking and tobacco status: never smoked Alcohol intake: former Lives independently: Yes Household members: spouse Marital status: Physical Exam Const: GENERAL APPEARANCE: cooperative ORIENTATION/CONSCIOUSNESS: Yes awake, Yes oriented to person, Yes oriented to place and Yes oriented to time HENMT: COMMON NORMALS: normocephalic, atraumatic and hearing grossly normal bilaterally HEAD & SCALP: normocephalic and atraumatic Resp: COMMON NORMALS: normal respiratory effort, No retractions, No use of accessory muscles and clear to auscultation bilaterally AUSCULTATION: clear to auscultation bilaterally Cardio: COMMON NORMALS: regular rate, regular rhythm and No murmurs present (Cardio) RATE: regular rate RHYTHM: regular rhythm GI: COMMON NORMALS: Soft to palpation and No hepatosplenomegaly present AUSCULTATION: Yes normoactive bowel sounds PALPATION: Yes Soft to palpation, No Tenderness to palpation present (GI), No Guarding due to palpation present (GI) and Yes No hepatosplenomegaly present Extremity: COMMON NORMALS: normal to inspection, capillary refill normal, no clubbing, cyanosis or edema, no calf tenderness and no pedal edema Neuro: SENSORIUM/ORIENTATION: Yes oriented to person, Yes oriented to place and Yes oriented to time Skin: COMMON NORMALS: no rashes or lesions noted GENERAL SKIN EXAM: no rashes or lesions noted MDM - Chest Pain Medical Decision Making Patient presents with sudden onset of chest pain with mild exertion no known history of coronary disease acute ST elevation in the anterior lateral leads. STEMI alert called patient given Plavix aspirin and heparin. I contacted Dr. Amin. Dr. Amin very shortly after the STEMI alert was called arrived in the emergency room is seen the patient and take patient directly to the [facility]. Medical Records I reviewed the patient's medical records. Lab Data I reviewed the patient's lab results. Discharge Plan Discharge Patient Disposition: Admitted As Inpatient Clinical Impression: ST elevation myocardial infarction (STEMI), CAD (coronary artery disease), Hypertension Condition: Stable Coding Level of Care Code ED Application Release Manager for Tadeo Cunningham
--- NOTE | 2022-07-04 14:03 | PC.NURSE ---
NITRO GIVEN TO GLADYS SANABRIA TO ADM IN DIRECTOR COUNCIL ON AGING.
--- NOTE | 2022-07-04 15:19 | PM.HP ---
Providers/Chief Complaint Admitting Physician: Karlos Amin MD Primary Care Provider: Brice Sanderson MD Chief Complaint: chest pain History of Present Illness Trung Mota is a 66 year old male who had a stent placed to his LAD 1 year ago. His told me that 2 or 3 weeks ago someone stopped both the aspirin and Plavix for a procedure on his skin. They told him not to start either drug. Today at around 1300 hrs. he had the sudden onset of chest pain and diaphoresis. He came to the emergency room where he has ST segment elevation in the anterior precordial leads. He was given 300 mg of Plavix, 5000 units of heparin and transferred immediately to the catheterization laboratory. He was hypertensive with a blood pressure of 250/120. His LAD stent was July 22 of last year after a non-ST segment elevation NM. He has a history of a stroke and hypertension. He is not a smoker. He is agitated and in pain and afraid. Review of Systems Narrative: Review of systems is negative aside from what is in the history of present illness for Medications/Allergies Home Medications Medication Instructions Recorded Confirmed Last Taken Type aspirin 81 mg tablet,delayed 81 mg PO DAILY #90 tabs 07/25/21 06/20/22 06/16/22 Rx release diabetic supplies, miscellan. #1 ea 07/25/21 06/20/22 Unknown Rx lisinopril 40 mg tablet 40 mg PO DAILY #90 tabs 09/23/21 06/20/22 06/21/22 Rx atorvastatin 40 mg tablet 40 mg PO BEDTIME #90 tabs 01/24/22 06/20/22 06/21/22 Rx metoprolol tartrate 50 mg tablet 50 mg PO DAILY #90 tabs 01/24/22 06/20/22 06/21/22 Rx SOLE SUPPORT - 1 PAIR #1 ea 02/08/22 06/20/22 Unknown Rx Diabetic Shoes with 3 pairs of #1 ea 05/10/22 05/10/22 Unknown Rx inserts metformin 500 mg tablet 500 mg PO BID 06/13/22 06/20/22 06/21/22 History clopidogrel 75 mg tablet 75 mg PO DAILY 06/20/22 06/20/22 06/16/22 History isosorbide mononitrate 30 mg 30 mg PO DAILY 06/22/22 06/22/22 06/21/22 History tablet,extended release 24 hr Allergies Allergy/AdvReac Type Severity Reaction Status Date / Time No Known Allergies Allergy Verified 06/13/22 14:24 PFSH Acute PFSH: Medical History CVA (cerebral vascular accident) At 18 Dyspnea on exertion Hypertension Surgical History (Updated 07/04/22 @ 15:21 by Karlos Amin MD) History of percutaneous coronary intervention Stented coronary artery Social History Smoking and tobacco status: never smoked Alcohol intake: former Lives independently: Yes Household members: spouse Marital status: Vitals/I&O/Wt Weight last 48 hrs Weight 209 lb Physical Exam Narrative: GENERAL: In general he is in discomfort. He is afraid and somewhat agitated. HEENT: Exam within normal limits. NECK: Supple without jugular vein distention. The carotid upstroke is normal without bruits. BACK: Exam normal. LUNGS: Clear. HEART: Regular rate and rhythm. ABDOMEN: Benign without organomegaly or tenderness. EXTREMITIES: No edema. NEUROLOGIC: Exam normal. SKIN: Unremarkable. A&P Assessment and plan (1) ST elevation myocardial infarction (STEMI): (2) Hypertension: (3) CAD (coronary artery disease): (4) Acute CVA (cerebrovascular accident): Plan Immediate cardiac catheterization. Attestations Medical Necessity Statement*: Hospitalization for management of acute stent thrombosis and anterior wall NM. and Moderate Time for a total of 50 minutes, includes reviewing past or interval history, examining/interviewing patient, placing orders, counseling patient/family/other support, updating patient/family/other support, discussing plan of care with staff, communicating with other healthcare providers, documenting encounter and coordinating care Diagnoses ST elevation myocardial infarction (STEMI) I21.3 Hypertension I10 CAD (coronary artery disease) I25.10 Acute CVA (cerebrovascular accident) I63.9
--- NOTE | 2022-07-04 15:27 | ECG_ITS ---
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 Measurements Intervals [place] Rate: 103 P: 63 SD: 181 QRS: -62 QRSD: 137 T: 87 QT: 398 QTc: 523 Interpretive Statements SINUS TACHYCARDIA RIGHT BUNDLE BRANCH BLOCK [120+ ms QRS DURATION, UPRIGHT V1, 40+ ms S IN I/aVL/V4/V5/V6] LEFT ANTERIOR FASCICULAR BLOCK [QRS AXIS <= -45, QR IN I, RS IN II] MINIMAL VOLTAGE CRITERIA FOR LVH, CONSIDER NORMAL VARIANT [MEETS CRITERIA IN ONE OF: R(aVL), S(V1), R(V5), R(V5/V6)+S(V1)] ST elevation IN ANTERIOR AND ANTEROLATERAL LEADS Compared to ECG 07/23/2021 14:03:53 Right bundle-branch block now present Left anterior fascicular block now present Sinus bradycardia no longer present T-wave abnormality no longer present Possible ischemia no longer present Electronically Signed On 07-04-2022 16:44:48 NAVY SEAL by Alex Cao M.D. [id number]
[2022-07-04] MEDS: nitroglycerin 0.4 mg sublingual Tablet SUBLINGUAL (15:48)
--- NOTE | 2022-07-04 15:54 | PM.MISC ---
Miscellaneous Note Note: Essentially immediately after getting back to the ICU, the nurse called me and the patient is still having pain. He is far less agitated than he was in the catheterization laboratory but still complaining of pain. He does not look to be in as much distress. Twelve-lead EKG shows some ST segment elevation but less so than previously noted. I am going to order some morphine and Ativan. I think the vessel is still open based on the EKG and his clinical state. His vitals are stable. We will reassess frequently. Other Coding Information Procedural care (documented in another note)
[2022-07-04] MEDS: ondansetron 2 mg/ML SDV 2 mL 4 MG IVP ×2 (16:05→20:09)
[2022-07-04] MEDS: sodium chloride 0.9% 1,000 ML 100 ML IV (16:08)
[2022-07-04] MEDS: morphine 4 mg/mL SDV 1 mL 2 MG IVP (16:30)
--- NOTE | 2022-07-04 17:04 | PC.NURSE ---
Patient arrived to ICU2 at approximately 1520. Patient calling out in pain and states his pain level is 10/[address] Amin notified and orders obtained for EKG. See Dr. Amin note on results. Patient reporting nausea and had bile like emesis. Order for zofran obtained and administered. This relieved nausea for a short time. Patient reporting pain 7/10 on scale and Morphine given, which relieved pain to 4/10. Patient produced emesis once more. Dr. Amin on unit and assessed patient. Pulses at TR band site and femoral access site remain throughout time thus far on unit, and are monitored closely. Patient resting in bed at this time with multiple family members at bedside.
--- NOTE | 2022-07-04 17:10 | PC.NURSE ---
Pharmacy, [facility], called about aggrastat order. Patient arrived from veterinary laboratory diagnostician with one bag of aggrastat running at 17.3ml/hr and another bag to be administered at this same rate. This information passed to pharmacy.
[2022-07-04 17:31] LABS: Partial Thromboplastin Time 39.9 SECONDS (23.9-36.7)
--- NOTE | 2022-07-04 18:27 | PC.NURSE ---
At 181, sheath removed. 15 minutes of pressure applied. No hemotoma formation at this time. Clear dressing applied. Patient and family educated extensively on S/S of internal/ external bleeding.
[2022-07-04] MEDS: metoprolol tartrate 50 mg Tablet PO (18:38)
--- NOTE | 2022-07-04 19:08 | PC.NURSE ---
No bleeding from Femoral access site, no hemotoma formation. TR band still in place with 5ml of air remaining. Sites and pulses assessed with fast food shift supervisor. Patient verbilizes understanding of teachings. Patient still reports nausea at this time.
[2022-07-04] MEDS: LORazepam 2 mg/mL INJ 1 mL 0.5 MG IVP (20:03)
[2022-07-04] MEDS: hyDRALAzine 20 mg/mL INJ 1 mL 10 MG IVP (20:15)
--- NOTE | 2022-07-04 20:22 | ECG_ITS ---
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 Measurements Intervals [place] Rate: 107 P: 34 NC: 156 QRS: -54 QRSD: 105 T: 99 QT: 352 QTc: 472 Interpretive Statements SINUS TACHYCARDIA LEFT ANTERIOR FASCICULAR BLOCK [QRS AXIS <= -45, QR IN I, RS IN II] SEPTAL MYOCARDIAL INFARCTION , PROBABLY RECENT [40+ ms Q WAVE IN V1/V2] PROBABLE LATERAL MYOCARDIAL INFARCTION , OF INDETERMINATE AGE [35 ms Q WAVE IN I/aVL/V5/V6] ACUTE DC INTERPRETATION BASED ON A DEFAULT AGE OF 40 YEARS Compared to ECG 07/04/2022 15:37:02 Myocardial infarct finding now present Right bundle-branch block no longer present ST (T wave) deviation no longer present Electronically Signed On 07-05-2022 18:20:38 TALENT ASSOCIATE by Karlos Amin M.D. [id number]
--- NOTE | 2022-07-04 20:24 | PM.MISC ---
Miscellaneous Note Note: I was called again a short while ago by the nurse stating the patient's blood pressure was quite high and he continues to have chest pain. I came to see him. He describes his pain as a 5 or 6 out of 10. When I saw him earlier after the procedure he described it as a 7. It was above a 10 when he was in the Cloth C[employer]. He looks much more relaxed now than he did earlier today. We continue to use as needed hydralazine for his blood pressure. His examination is unchanged. I repeated another EKG this evening and now he has QS waves in leads V1 and V2 with very minimal residual ST segment elevation in those 2 leads. However, his STs are now completely normal in leads V3 through V6 and in leads I and aVL. This is a significant improvement in his EKG from the previous 2. I suspect the artery is still open and this is residual from the earlier closure and perhaps distal embolization from the degree of thrombus associated with the stent thrombosis. He has completed the Aggrastat infusion. I will also order some as needed IV nitroglycerin so that we can titrate his blood pressure if necessary. For now he is stable and his EKG looks much improved. Other Coding Information Procedural care (documented in another note)
[2022-07-04] MEDS: atorvastatin 40 mg Tablet 80 MG PO (20:35)
--- NOTE | 2022-07-04 20:40 | PC.NURSE ---
Noted redness in the face on beginning shift assessment. Family @bedside states that this is normal for the pt and gets worse when he dose not feel well. Pt vomited. Increased BP. EKG preformed. Dr. Amin @bedside to see pt. New order to start Nitro drip for increased BP/CP if needed. See MAR for med administration.
--- NOTE | 2022-07-04 22:00 | PC.NURSE ---
TR Band Removed: Air was slowly removed from TR band, no ozzing noted, pulses felt, dressing applied. Skin warm and normal color.
[2022-07-05] VITALS (94 sets, daily range): BP systolic 67–163; BP diastolic 40–103; PULSE 73–134; RESP 14–41; TEMP 36.4–36.5; O2SAT 81–96
[2022-07-05] MEDS: sodium chloride 0.9% 1,000 ML 100 ML IV ×3 (00:43→22:18)
[2022-07-05 04:15] LABS: Basophils # 0.1 10^3/uL (0.0-0.1); Basophils % 0.4 %; Hematocrit 51.5 % (42.0-52.0); Hemoglobin 16.2 g/dL (11.7-16.6); Lymphocytes # 2.5 10^3/uL (0.8-4.8); Lymphocytes % 10.3 %; Mean Corpuscular HGB Conc 31.5 g/dL (30.0-36.0); Mean Corpuscular Hemoglobin 28.2 pg (28.0-34.0); Mean Corpuscular Volume 89.6 fl (80-94); Mean Platelet Volume 11.5 fL (7.4-10.4); Monocytes # 1.7 10^3/uL (0.2-0.9); Monocytes % 7.2 %; Neutrophils # 19.39 10^3/uL (1.8-7.7); Neutrophils % 81.6 %; Nucleated Red Blood Cells % 0 %; Platelet Count 301 10^3/cmm (130-400); Red Blood Count 5.75 10^6/uL (4.1-5.3); Red Cell Distribution Width 14.2 % (12.1-15.1); White Blood Count 23.8 10^3/uL (4.0-10.0)
[2022-07-05 04:33] LABS: Blood Urea Nitrogen 14 mg/dL (8-23); Calcium 8.7 mg/dL (8.5-10.5); Carbon Dioxide 23 mmol/L (22-29); Chloride 105 mmol/L (98-107); Glomerular Filtration Rate 66.8 mL/min (90-130); Glucose 162 mg/dL (65-115); Osmolality Calculated 292 mOsm/kg (285-295); Sodium 139 mmol/L (136-145)
[2022-07-05 04:50] LABS: Anion Gap 15.8 (5-19); Potassium 4.8 mmol/L (3.5-5.1)
--- NOTE | 2022-07-05 06:24 | PM.PN ---
Subjective Subjective: As noted in my previous 2 notes, the patient had chest pain most of the evening. He has also been nauseated. He has responded to Zofran. He is also been hypertensive. He has responded relatively well to as needed hydralazine. He becomes agitated and that drives his blood pressure up which worsens his chest pain. This morning his chest pain is essentially gone. Last evening around 830 his EKG was significantly improved. He has required 5 L of oxygen. Overnight when he went to sleep he was mouth breathing so the nurse switched him over to a mask. His oxygen saturations have remained above 90%. This morning he states that he feels better, is still nauseated but is not having any chest pain. Unfortunately, his troponins were not recorded. We had a computer malfunction in the catheterization laboratory yesterday at the end of the procedure so I could not complete the catheterization report. Basically, he has in-stent thrombosis of the LAD stent due to discontinuation of his aspirin and Plavix. The vessel was opened with plain old balloon angioplasty but he did have significant downstream embolization which caused most of the difficulty after the procedure. Vitals/I&O/Wt Last Vital Signs Temp 97.7 F 07/05/22 04:45 Pulse 97 07/05/22 06:00 Resp 23 H 07/05/22 06:00 BP 115/79 07/05/22 06:00 Pulse Ox 92 07/05/22 06:00 O2 Del Method 07/05/22 06:00 O2 Flow Rate 5 07/05/22 06:00 07/04/22 07/04/22 07/05/22 14:59 22:59 06:59 Intake Total 120 / 120 1250 / 1370 Output Total 200 / 200 500 / 700 Balance -80 / -80 750 / 670 Weight last 48 hrs Weight 209 lb Weight 209 lb Physical Exam Narrative: GENERAL: In general he looks much better than yesterday. HEENT: Exam within normal limits. NECK: Supple without jugular vein distention. The carotid upstroke is normal without bruits. BACK: Exam normal. LUNGS: Clear. HEART: Regular rate and rhythm. ABDOMEN: Benign without organomegaly or tenderness. EXTREMITIES: No edema. NEUROLOGIC: Exam normal. SKIN: Unremarkable. Data 07/05/22 03:34 07/05/22 03:34 A&P Assessment and plan (1) Stented coronary artery: (2) ST elevation myocardial infarction (STEMI): (3) Hypertension: (4) CAD (coronary artery disease): (5) Acute CVA (cerebrovascular accident): (6) NSTEMI (non-ST elevated myocardial infarction): (7) Hypoxia: (8) Coronary stent thrombosis: Plan Today I will get a chest x-ray, echo and a troponin. Continue medications as currently prescribed. Use as needed nitroglycerin intravenously for blood pressure spikes. Attestations Medical Necessity Statement*: Needs continued hospitalization in the ICU for management of stent thrombosis, anterior wall AL. and Moderate Time for a total of 25 minutes, includes reviewing past or interval history, examining/interviewing patient, placing orders, counseling patient/family/other support, updating patient/family/other support, discussing plan of care with staff and documenting encounter Diagnoses Stented coronary artery Z95.5 ST elevation myocardial infarction (STEMI) I21.3 Hypertension I10 CAD (coronary artery disease) I25.10 Acute CVA (cerebrovascular accident) I63.9 NSTEMI (non-ST elevated myocardial infarction) I21.4 Hypoxia R09.02 Coronary stent thrombosis T82.867A
--- NOTE | 2022-07-05 06:30 | USCV_ITS ---
Trung Mota Age: 66 Gender: M : 1955 Exam Date: 07/05/2022 08:40 Ordering Phys: Karlos Amin MD ([email or web address]) Technologist: CT Exam Location: [facility] [place] Indication: nstemi BP: 163 / 99 HR: 100 Rhythm: Sinus Technical Quality: Suboptimal MEASUREMENTS (Male / Female) Normal Values 2D ECHO LV Diastolic Diameter PLAX 3.8 cm 4.2 - 5.9 / 3.9 - 5.3 cm LV Systolic Diameter PLAX 3.0 cm IVS Diastolic Thickness 1.2 cm 0.6 - 1.0 / 0.6 - 0.9 cm IVS Systolic Thickness 1.5 cm LVPW Diastolic Thickness 1.3 cm 0.6 - 1.0 / 0.6 - 0.9 cm LVPW Systolic Thickness 1.7 cm LVOT Diameter 2.0 cm LV Ejection Fraction 2D Teich 43.2 % LV Ejection Fraction MOD 2C 51.5 % LV Ejection Fraction 2C AL 50.4 % LA Diameter 3.7 cm IVC Diameter 1.6 cm M-MODE Aortic Annulus Diameter 5.0 cm LA Ao Ratio MM 0.7 DOPPLER AV Peak Velocity 107.0 cm/s LVOT Peak Velocity 103.0 cm/s AV Area Cont Eq vti 2.2 cm squared AV Area Cont Eq pk 3.1 cm squared MV Area PHT 5.0 cm squared Mitral E to A Ratio 1.7 MV E' Velocity 51.5 cm/s Mitral E to MV E' Ratio 16.1 Mitral E to LV E' Lateral Ratio 14.9 Mitral E to LV E' Septal Ratio 17.6 TR Peak Velocity 236.0 cm/s TR Peak Gradient 22.3 mmHg TV Peak E Velocity 74.0 cm/s Right Atrial Pressure 3.0 mmHg Pulmonary Artery Systolic Pressu 25.3 mmHg FINDINGS Left Ventricle There is a relatively poor quality study. The apical view is the only reasonable view. The apex and anterior wall are akinetic suggesting an anterior wall UT. The remainder of the ventricle contracts normally. The ejection fraction is about 40%. Grade 1 diastolic dysfunction. Right Ventricle Normal right ventricular size and systolic function. Normal right ventricular systolic pressure. Right Atrium The right atrium is normal in size. Left Atrium Mildly increased left atrial size. Mitral Valve Mitral valve not well visualized. Aortic Valve Aortic valve not well visualized. Tricuspid Valve Tricuspid valve not well visualized. Pulmonic Valve Pulmonic valve not well visualized. Pericardium Normal pericardium without effusion. Aorta Normal ascending aorta dimension. IVC Inferior vena cava not visualized. CONCLUSIONS There is a relatively poor quality study. The apical view is the only reasonable view. The apex and anterior wall are akinetic suggesting an anterior wall UT. The remainder of the ventricle contracts normally. The ejection fraction is about 40%. Grade 1 diastolic dysfunction. Previous study was 1 year ago. It was an equally difficult study revealed normal left ventricular function at the time of the previous LAD stent placement. Dr. Karlos Amin MD (Electronically Signed) Final Date: 05 July 2022 17:24 S
--- NOTE | 2022-07-05 06:30 | XRR_ITS ---
PROCEDURE INFORMATION: Exam: XR Chest Exam date and time: 07/05/2022 7:53 PM Age: 66 years old Clinical indication: Shortness of breath; Additional info: SOB, hypoxia, awmi TECHNIQUE: Imaging protocol: Radiologic exam of the chest. Views: 1 view. COMPARISON: CR XR chest 1V portable [id number] 06/25/2021 3:56 PM FINDINGS: Lungs: There is pulmonary vascular congestion within the lower lung zones that has developed and likely secondary to CHF. Pleural spaces: Unremarkable. No pleural effusion. No pneumothorax. Heart/Mediastinum: Cardiac silhouette is stable and not significantly enlarged. Bones/joints: Unremarkable for age. XR/XR chest 1V portable [id number] IMPRESSION: Interval development of CHF pattern with lower lobe pulmonary congestion.
[2022-07-05 07:48] LABS: Troponin T (5th) Once > 10000 ng/L (0-15)
[2022-07-05] MEDS: clopidogrel 75 mg Tablet PO (08:14)
[2022-07-05] MEDS: aspirin 81 mg EC Tablet PO (08:14)
[2022-07-05] MEDS: lisinopril 20 mg Tablet PO (08:14)
[2022-07-05] MEDS: metoprolol tartrate 50 mg Tablet PO (08:14)
[2022-07-05] MEDS: ondansetron 2 mg/ML SDV 2 mL 4 MG IVP (08:21)
--- NOTE | 2022-07-05 08:27 | ECG_ITS ---
[facility] Test Date: 2022-07-05 Pat Name: Trung Mota Department: Room: ICU02 Gender: Male Scraper Meat: : 1955 Requested By: Karlos Amin Order Number: [id number] Lorene MD: Karlos Amin M.D. Measurements Intervals [place] Rate: 82 P: 38 AZ: 161 QRS: -44 QRSD: 98 T: 122 QT: 420 QTc: 493 Interpretive Statements SINUS RHYTHM LEFT AXIS DEVIATION [QRS AXIS < -30] SEPTAL MYOCARDIAL INFARCTION , PROBABLY RECENT [40+ ms Q WAVE IN V1/V2] LATERAL MYOCARDIAL INFARCTION , PROBABLY RECENT [40+ ms Q WAVE AND/OR ST/T ABNORMALITY IN I/aVL/V5/V6] ACUTE GA Compared to ECG 07/04/2022 20:22:42 Left-axis deviation now present Sinus tachycardia no longer present Left anterior fascicular block no longer present Myocardial infarct finding still present Electronically Signed On 07-05-2022 18:16:49 RIG MECHANIC by Karlos Amin M.D. [id number]
[2022-07-05] MEDS: metoclopramide 5 mg/mL SDV 2 mL 10 MG IVP ×2 (09:39→15:47)
[2022-07-05] MEDS: ketorolac 30 mg/mL INJ IVP ×2 (09:39→15:47)
--- NOTE | 2022-07-05 17:15 | PC.NURSE ---
Patients BP fairly soft this shift after morning meds, held PM BP meds per Dr. Amin. Patient resting in room. Prefers reglan and toradol for pain and nausea
[2022-07-05] MEDS: atorvastatin 40 mg Tablet 80 MG PO (22:17)
--- NOTE | 2022-07-05 22:23 | PC.NURSE ---
Notified Dr. Amin about crackles in bilateral lobes. New order for 40ml IVP lasix ONCE and KVO fluids 20ml/hr.
[2022-07-05] MEDS: FUROsemide 10 mg/mL SDV 4mL 40 MG IVP (22:43)
[2022-07-06] VITALS (84 sets, daily range): BP systolic 88–145; BP diastolic 53–99; PULSE 85–133; RESP 16–34; TEMP 36.3–37; O2SAT 80–97
[2022-07-06 03:33] LABS: Basophils # 0.1 10^3/uL (0.0-0.1); Basophils % 0.3 %; Hematocrit 47.9 % (42.0-52.0); Hemoglobin 14.8 g/dL (11.7-16.6); Lymphocytes # 2.2 10^3/uL (0.8-4.8); Lymphocytes % 10.4 %; Mean Corpuscular HGB Conc 30.9 g/dL (30.0-36.0); Mean Corpuscular Hemoglobin 28.7 pg (28.0-34.0); Mean Platelet Volume 11.8 fL (7.4-10.4); Monocytes # 2.3 10^3/uL (0.2-0.9); Monocytes % 10.6 %; Neutrophils # 16.74 10^3/uL (1.8-7.7); Nucleated Red Blood Cells % 0 %; Platelet Count 208 10^3/cmm (130-400); Red Blood Count 5.15 10^6/uL (4.1-5.3); Red Cell Distribution Width 14.5 % (12.1-15.1); White Blood Count 21.5 10^3/uL (4.0-10.0)
[2022-07-06 03:55] LABS: Anion Gap 18.4 (5-19); Blood Urea Nitrogen 25 mg/dL (8-23); Calcium 8.6 mg/dL (8.5-10.5); Carbon Dioxide 21 mmol/L (22-29); Chloride 102 mmol/L (98-107); Glomerular Filtration Rate 60.4 mL/min (90-130); Glucose 130 mg/dL (65-115); Osmolality Calculated 290 mOsm/kg (285-295); Potassium 4.4 mmol/L (3.5-5.1); Sodium 137 mmol/L (136-145)
[2022-07-06] MEDS: ketorolac 30 mg/mL INJ IVP (04:48)
--- NOTE | 2022-07-06 04:50 | ECG_ITS ---
[facility] Test Date: 2022-07-06 Pat Name: Trung Mota Department: Room: ICU02 Gender: Male Fisher Swordfish: : 1955 Requested By: Karlos Amin Order Number: [id number] Lorene MD: Karlos Amin M.D. Measurements Intervals [place] Rate: 103 P: 30 NC: 151 QRS: -44 QRSD: 98 T: 118 QT: 356 QTc: 467 Interpretive Statements SINUS TACHYCARDIA LEFT AXIS DEVIATION [QRS AXIS < -30] ANTEROSEPTAL MYOCARDIAL INFARCTION , PROBABLY RECENT [40+ ms Q WAVE IN V1-V4] ACUTE AK Compared to ECG 07/05/2022 09:09:26 Sinus rhythm no longer present Myocardial infarct finding still present Electronically Signed On 07-06-2022 15:12:19 WOOL BUYER by aKrlos Amin M.D. [id number]
[2022-07-06] MEDS: nitroglycerin 0.4 mg sublingual Tablet SUBLINGUAL ×5 (04:58→10:00)
[2022-07-06] MEDS: metoclopramide 5 mg/mL SDV 2 mL 10 MG IVP ×3 (05:16→15:55)
--- NOTE | 2022-07-06 05:29 | P.PN_ITS ---
Subjective Subjective: Patient's pain finally stopped yesterday after taking him off of narcotic pain relievers. It was probably also the cause of his nausea and vomiting. We added Reglan to the Zofran and began treating him with Toradol. His pain went away and the nausea went away. At about 445 this morning he star kizzy complaining of chest pain to the nurses. He told him that it was 10 out of 10. An EKG was obtained which shows similar findings in leads V1 and V2 but now ST elevation in lead V3 with loss of R wave in V3 when compared to the EKG from 2 days ago. Patient was diaphoretic. He was given sublingual nitroglycerin. He has been a difficult management problem list difficult to sort out chest pain ever since the procedure was originally done 2 days ago. Because of the new findings on EKG I had the nurses call a STEMI alert. As I am seeing him now he does not look to be in that much distress. His diaphoresis is gone. The nitroglycerin has been brought his chest pain down from a 10 on a 10 scale to a 5 on a 10 scale. Vitals/I&O/Wt Last Vital Signs Temp 98.6 F 07/06/22 02:00 Pulse 107 H 07/06/22 02:00 Resp 28 H 07/06/22 02:00 BP 109/67 07/06/22 02:00 Pulse Ox 90 07/06/22 02:00 O2 Del Method 07/06/22 02:00 O2 Flow Rate 5 07/06/22 02:00 07/05/22 07/05/22 07/06/22 14:59 22:59 06:59 Intake Total 1340 / 1340 1260 / 2600 Output Total 125 / 125 Balance 1340 / 1340 1135 / 2475 Weight last 48 hrs Weight 209 lb Weight 209 lb Physical Exam Narrative: GENERAL: In general he looks mildly uncomfortable but not as near as he did the other day. HEENT: Exam within normal limits. NECK: Supple without jugular vein distention. The carotid upstroke is normal without bruits. BACK: Exam normal. LUNGS: Clear. HEART: Regular rate and rhythm. ABDOMEN: Benign without organomegaly or tenderness. EXTREMITIES: No edema. NEUROLOGIC: Exam normal. SKIN: Unremarkable. Data 07/06/22 02:31 07/06/22 02:31 A&P Assessment and plan (1) Coronary stent thrombosis: (2) Hypoxia: (3) Stented coronary artery: (4) ST elevation myocardial infarction (STEMI): (5) Hypertension: (6) CAD (coronary artery disease): (7) Acute CVA (cerebrovascular accident): (8) NSTEMI (non-ST elevated myocardial infarction): Plan I think at this point we have no choice but to take him back to the [facility]. These EKG findings could very well be aneurysm formation from the closure of the LAD the other day but could also be an acute closure of the vessel again. He has been having pain off and on which has been difficult to figure out ever since we did the procedure 2 days ago. We need to find out for sure. We will take him to the [facility] immediately. Attestations Medical Necessity Statement*: Continued intensive care unit hospital stay for management of stent thrombosis, continued chest pain and possible reocclusion of the artery. and High Time for a total of 40 minutes, includes reviewing past or interval history, examining/interviewing patient, placing orders, counseling patient/family/other support, updating patient/family/other support, discussing plan of care with staff, documenting encounter and coordinating care Other Coding Information Procedural care (documented in another note) Diagnoses Coronary stent thrombosis T82.867A Hypoxia R09.02 Stented coronary artery Z95.5 ST elevation myocardial infarction (STEMI) I21.3 Hypertension I10 CAD (coronary artery disease) I25.10 Acute CVA (cerebrovascular accident) I63.9 NSTEMI (non-ST elevated myocardial infarction) I21.4
--- NOTE | 2022-07-06 05:32 | XACV_ITS ---
Exam Room: 2 Ht: 175 cm Wt: 95 kg BSA: 2.18 m2 Gender: Male : 1955 Any Known Allergies: No known allergies Exam Priority: Routine Procedure(s): Procedure Description: Diagnostic procedure Procedure Description: Coronary Angiography Brennan VILLANUEVA; Diagnostic Cath Status: Emergency Diagnostic Findings * This patient had acute stent thrombosis of the LAD about 48 hours ago. The vessel was opened with balloon angioplasty and he was started back on his aspirin and Plavix which had been discontinued 3 weeks prior. Patient had multiple episodes of chest pain post procedure. His EKG, however, improved after the procedure 2 days ago. Intermittently since then he has been having episodes of chest pain and diaphoresis. This morning at 0445 hrs. he began to have 10 out of 10 chest pain again and the nurses obtained an EKG. This revealed lack of R waves from leads V1 and V2 with minimal ST elevation as noted previously, however, there was new ST elevation in lead V3 with lack of R wave there. My initial impression was that this represented aneurysm formation as the myocardial infarction evolved in the anterior wall however given his chest pain and diaphoresis and multiple episodes of chest pain over the last 2 days I decided to bring him back to the catheterization laboratory. * Angiography reveals that the LAD is open with GRETTA-3 flow. The circumflex and the small proximal obtuse marginal branch are also patent. Conclusions 1. LAD patent 48 hours after acute stent thrombosis and balloon angioplasty. Pressures Phase:Rest AO : 73 / 44 ( 55 ) @ 6:02:00 AM Clinical Evaluation EBL: 5mL-10mL Procedural Details Pre-Procedure Time Out. Identified patient by full name and date of as verbalized by the patient/guarantor. Accurate & Complete Informed Consent: N/A Emergent; Informed Consent not obtained due to time critical life threat. Does the consent match the physician's order: N/A Emergent; Informed Consent not obtained due to time critical life threat. Inpatient/Outpatient History & Physical on Chart: N/A Emergent; Informed Consent not obtained due to time critical life threat. If H&P is completed, is and addenduem needed: N/A Emergent; Informed Consent not obtained due to time critical life threat; If yes, is the addendum complete: N/A Emergent; Informed Consent not obtained due to time critical life threat. Visualize and Verify Site with Patient/Guarantor: N/A. Relevant Radiology Images available: N/A Emergent; Informed Consent not obtained due to time critical life threat. Pre-op teaching completed and patient verbalized understanding. The risks, benefits, and alternatives of sedation and/or procedure were discussed by physician. The patient agrees to continue. Procedure started. [facility] Clinical Fraility Score: 4: Vulnerable. Metal Inspector Indications: ACS <= 24 hours. Chest Pain Symptom Assessment: Typical Angina Symptoms. Cardiovascular Instability: Yes, if yes, Persistant Ischemic Symptoms. Correct patient, site and procedure confirmed by cath team. Current diagnosis: STEMI. PERRLA. Strong, equal hand frame assembler bilaterally. Lungs clear x 5 lobes. Both exosting IV's were not patent. A 20 gauge IV was started in the left forearm using aseptic technique. IV Fluids: 0.9% NaCl at KVO. 200 mL infused prior to cath lab nurse. Oxygen started at 5liters/min via simple mask. bilateral groins was prepped with chloroprep then draped in the usual sterile fashion. Baseline sample Acquired. HR: 97 BPM. Physician notified. Patient's family unavailable. Equipment: 6F - Femoral. Cardiac Cath Pack. ACIST Manifold Kit Model BT 2000. Heparinized Saline (2 units/mL), 1000 mL bag. Physician arrived. Physician scrubbed in. Immediate Pre-Procedure Time Out. Correct Patient: N/A Emergent; Informed Consent not obtained due to time critical life threat; Correct Procedure: N/A Emergent; Informed Consent not obtained due to time critical life threat; Correct Site: N/A Emergent; Informed Consent not obtained due to time critical life threat; Correct Patient Position: N/A Emergent; Informed Consent not obtained due to time critical life threat; Correct Supplies: N/A Emergent; Informed Consent not obtained due to time critical life threat; Dried Flammable Prep: N/A Emergent; Informed Consent not obtained due to time critical life threat; Blood Products Available: N/A;. Lidocaine 1% infiltrated to the right groin. Arterial access obtained. 6 pashto XB 3 guide catheter was inserted over the wire. Guide catheter out. 6 pashto JL 4 guide catheter was inserted over the wire. AP pads placed on the patient on arrival to the cath lab nurse. Cineograpjhy of the LCA performed. Guide catheter out. Dr. Amin scrubbed out. A Suture was successful obtaining hemostatsis at the Right Femoral artery insertion site. Sheath(s) sutured into position with 2-0 silk and sterile 4x4's and Op-site applied over the site. No oozing or signs and symptoms of hematoma noted. Arterial sheath flushed and connected to tranducer and pressure bag with heparinized saline. Post Procedure: bilateral dorsalis pedis pulse Doppled. Post Procedure: bilateral posterior tibial pulse Doppled. PERRLA. Strong, equal hand frame assembler bilaterally. No VTE prophylaxis required. Medication's Wasted: Heparin = 4000 units. Medication's Wasted: Other = Versed 1 mg. Medication's Wasted: Other = Fentanyl 75 mcg. Total IV fluids: 20 mL. Post-op diagnosis: CP. Complications: none. Estimated blood loss: 5mL-10mL. Responsiveness - Normal response to verbal stimuli; alert and oriented, PERRLA. Airway - Unaffected, no intervention required; spontaneous ventilation. Circulation: W/N/L, pulses unchanged. Nausea/Vomiting: No. Procedure completed. Patient transferred by bed to ICU. Vital chart was stopped. Access Site Site: Right Femoral artery Sheath Size: 6 Fr Hemostasis Method: Suture Hemostasis Success: Successful Procedure Medications Start: 5:56 AM Stop: 5:56 AM Medication: Versed Amount: 1 mg Route: I.V. Start: 5:56 AM Stop: 5:56 AM Medication: Fentanyl Amount: 25 mcg Route: I.V. I, the attending physician, have reviewed and verified all procedure medications. Yes, all medications given per verbal order History/Risk Factors Hypertension: Yes Dyslipidemia: No Peripheral Arterial Disease (PAD): No Myocardial Infarction (OK): Yes Obesity: Yes Renal Disease: No Tobacco Use: Never Prior Interventions PCI: Yes CABG: No Valve Surgery: No Date of PCI: 07/23/2021 Report Signatures Finalized by Dr. Karlos Amin MD on 07/06/2022 06:39 AM
--- NOTE | 2022-07-06 05:40 | PC.NURSE ---
STEMI ALERT: Pt reported 8/10 chest pain @approximately 0445. Pt states that the pain does not radiate. Pt is diaphoretic. BP: 111/74. HR 107. SpO2 94% on 5L oxymask. EKG obtained @0453. Dr. Amin (Dairy Farm Operator) called @0455. EKG picture sent and read by Dr. Amin @ 0456. STEMI ALERT called @0501. Pt reporting 9/10 chest pain. Sublingual nitro x3 given, see MAR for administration. Pt reporting chest pain /10. Dr. Amin on unit @pt bedside @0531. Maintenance Worker arrived on unit @0533, report given @bedside. Pt left unit w/ 2 RN's @bedside to cardiac laboratory analyst @2032.
--- NOTE | 2022-07-06 06:21 | PM.MISC ---
Miscellaneous Note Note: The vessel is open. The EKG is as I suspected and represents aneurysm formation in the apex with persistent ST elevation in leads V1 through V3. He remains intermittently diaphoretic. His skin feels warm. I do not see that he has been febrile. The chest x-ray from yesterday showed some congestive heart failure and perhaps some consolidation. He also has remained hypoxic. I think I will have the hospitalist see him and consider treatment with antibiotics for probable pneumonia as well. Other Coding Information Procedural care (documented in another note)
--- NOTE | 2022-07-06 06:40 | PC.NURSE ---
Pt arrived to ICU 2 from cardiac laborer starch factory @0664. Pt connected to continuos monitoring.
[2022-07-06] MEDS: aspirin 81 mg EC Tablet PO (08:07)
[2022-07-06] MEDS: clopidogrel 75 mg Tablet PO (08:07)
[2022-07-06] MEDS: FUROsemide 40 mg Tablet PO ×2 (08:17→15:24)
--- NOTE | 2022-07-06 09:54 | ECG_ITS ---
[facility] Test Date: 2022-07-06 Pat Name: Trung Mota Department: Room: ICU02 Gender: Male Vendor Relationship Manager: : [id number] Requested By: Karlos Amin Order Number: [id number] Lorene MD: Karlos Amin M.D. Measurements Intervals [place] Rate: 100 P: 50 DE: 158 QRS: -47 QRSD: 97 T: 109 QT: 353 QTc: 457 Interpretive Statements SINUS TACHYCARDIA PATTERN CONSISTENT WITH PULMONARY DISEASE LEFT ANTERIOR FASCICULAR BLOCK [QRS AXIS <= -45, QR IN I, RS IN II] SEPTAL MYOCARDIAL INFARCTION , PROBABLY RECENT [40+ ms Q WAVE IN V1/V2] ACUTE ND Compared to ECG 07/06/2022 04:53:57 Left anterior fascicular block now present Left-axis deviation no longer present Myocardial infarct finding still present Electronically Signed On 07-06-2022 15:07:04 BARTENDER by Karlos Amin M.D. [id number]
--- NOTE | 2022-07-06 09:56 | P.CONIM_ITS ---
Providers/Reason For Consult Consulting Physician/Specialty*: Guanakito Coronado MD Reason for Consult*: Hypoxia Requesting Physician: Dr. Amin Attending Physician: Karlos Amin MD Primary Care Provider: Brice Sanderson MD History of Present Illness History of Present Illness Trung Mota is a 66 year old male admitted on July [address] elevation myocardial infarction. He underwent balloon angioplasty of an in- stent stenosis of his LAD. He did have some downstream embolization following the procedure. Since then he has required some oxygen, and also having some frequent burping and occasional vomiting. Patient reports he was doing this to some extent at home as well. He has not been short of breath. He has been coughing some but it has not been productive. He has vomited multiple times at the hospital. Secondary to some recurrent chest discomfort he underwent angiogram again this morning, and culprit vessel appeared open at that time. Since being in the hospital he has not had any fever, but has had a persistently elevated white blood cell count. Review of Systems General: Reports: 10 or more systems reviewed and unremarkable except in HPI and below Const: Reports: fatigue; Denies: fever(s) or chills Card: Reports: chest pain Resp: Reports: dyspnea; Denies: productive cough GI: Reports: nausea and vomiting; Denies: hematochezia or melena Medications/Allergies Home Medications Medication Instructions Recorded Confirmed Last Taken Type aspirin 81 mg tablet,delayed 81 mg PO DAILY #90 tabs 07/25/21 07/05/22 06/16/22 Rx release diabetic supplies, miscellan. #1 ea 07/25/21 07/05/22 Unknown Rx lisinopril 40 mg tablet 40 mg PO DAILY #90 tabs 09/23/21 07/05/22 06/21/22 Rx atorvastatin 40 mg tablet 40 mg PO BEDTIME #90 tabs 01/24/22 07/05/22 06/21/22 Rx metoprolol tartrate 50 mg tablet 50 mg PO DAILY #90 tabs 01/24/22 07/05/22 06/21/22 Rx SOLE SUPPORT - 1 PAIR #1 ea 02/08/22 07/05/22 Unknown Rx Diabetic Shoes with 3 pairs of #1 ea 05/10/22 07/05/22 Unknown Rx inserts metformin 500 mg tablet 500 mg PO BID 06/13/22 07/05/2223 History clopidogrel 75 mg tablet 75 mg PO DAILY 06/20/22 07/05/22 06/16/22 History isosorbide mononitrate 30 mg 30 mg PO DAILY 06/22/22 07/05/22 06/21/22 History tablet,extended release 24 hr Allergies Allergy/AdvReac Type Severity Reaction Status Date / Time PAIN MEDICATIONS Allergy ADR-Vomitin Uncoded 07/05/22 09:44 g Current Medications Generic Name Dose Route Start Last Admin Trade Name Freq PRN Reason Stop Dose Admin Aspirin 81 mg 07/05/22 09:00 07/06/22 08:07 Aspirin 81 Mg Ec Tablet PO 81 mg DAILY MELIDA Administration Atorvastatin Calcium 80 mg 07/04/22 21:00 07/05/22 22:17 Atorvastatin 40 Mg Tablet PO 80 mg BEDTIME MELIDA Administration Clopidogrel Bisulfate 75 mg 07/05/22 09:00 07/06/22 08:07 Clopidogrel 75 Mg Tablet PO 75 mg DAILY MELIDA Administration Hydralazine HCl 10 mg 07/04/22 19:52 07/04/22 20:15 Hydralazine 20 Mg/Ml Inj 1 Ml IVP 10 mg Q6H PRN Administration SBP>160, DBP>100 Lisinopril 20 mg 07/05/22 09:00 07/06/22 08:20 Lisinopril 20 Mg Tablet PO Not Given DAILY [facility] Metoclopramide HCl 10 mg 07/05/22 09:33 07/06/22 05:16 Metoclopramide 5 Mg/Ml Sdv 2 Ml IVP 10 mg Q6H PRN Administration NAUSEA AND VOMITING Metoprolol Tartrate 50 mg 07/04/22 18:00 07/06/22 08:20 Metoprolol Tartrate 50 Mg Tablet PO Not Given BID [facility] Nitroglycerin 0.4 mg 07/04/22 15:39 07/06/22 05:09 Nitroglycerin 0.4 Mg Sublingual Tablet SUBLINGUAL 0.4 mg Q5M PRN Administration CHEST PAIN Ondansetron HCl 4 mg 07/04/22 16:18 07/05/22 08:21 Ondansetron 2 Mg/Ml Sdv 2 Ml IVP 4 mg Q6H PRN Administration NAUSEA AND VOMITING PFSH Acute PFSH: Medical History Coronary stent thrombosis CVA (cerebral vascular accident) At 18 Dyspnea on exertion Hypertension Hypoxia Surgical History History of percutaneous coronary intervention Stented coronary artery Social History Smoking and tobacco status: never smoked Alcohol intake: former Lives independently: Yes Household members: spouse Marital status: Vitals/I&O/Wt Last Vital Signs Temp 97.4 F L 07/06/22 08:06 Pulse 89 07/06/22 08:00 Resp 25 H 07/06/22 08:00 BP 115/70 07/06/22 08:00 Pulse Ox 95 07/06/22 08:00 O2 Del Method 07/06/22 07:59 O2 Flow Rate 5 07/06/22 07:59 07/05/22 07/06/22 07/06/22 22:59 06:59 14:59 Intake Total 1260 / 2600 189.667 / 189.667 Output Total 125 / 125 575 / 700 Balance 1135 / 2475 -575 / 1900 189.667 / 189.667 Weight last 48 hrs Weight 94.801 kg Weight 94.801 kg Physical Exam Narrative: General exam is a white male, conversant, burping frequently. Currently on 5 L of oxygen. Cumulative ins and outs he is up around 2900 cc HEENT: Atraumatic and normocephalic. Pupils equally round. Oropharynx clear. Neck supple no lymphadenopathy thyromegaly Cardiovascular regular rate and rhythm, heart sounds distant Lungs diminished breath sounds bilaterally. No crackles. No wheezing. Abdomen is soft. Positive bowel sounds. No specific tenderness. No obvious organomegaly exam was deferred Extremities no cyanosis clubbing or edema, cap refill brisk Skin no rash Neuro no obvious focal deficits Data 07/06/22 02:31 07/06/22 02:31 Other Labs: Calcium is 8.6 Chest x-ray July 05 which I reviewed demonstrates some pulmonary congestion, interstitial edema. Cannot rule out bibasilar pneumonia. EKG this morning demonstrates borderline sinus tachycardia, left axis deviation, flipped T waves laterally and some ST elevation that is persisted in V1 through 3 Echocardiogram was done and demonstrated poor views, EF around 40% A&P Assessment and plan (1) Hypoxia: Patient has persistent hypoxia. Some of this may be secondary to fluid overload. He is still significantly positive from admission. Cardiology is appropriately attempting to diurese him. He appears to be intaking a fair amount of fluids. We will restrict to 1200 cc. The patient is likely to have pneumonia. He potentially could have aspiration pneumonitis. At this point secondary to his persistent hypoxemia, elevated white blood cell count, and abnormal chest x-ray will initiate him on Zosyn. Wean oxygen as tolerated Without active wheezing at this time I do not think nebulized treatments will be needed As he is not producing sputum culture cannot be obtained Obtain a CBC, CMP, magnesium level in the morning (2) Vomiting: Patient has had some persistent nausea vomiting and belching. Continue current nausea medication Initiate Protonix twice daily Check liver function tests, lipase Last imaging of abdomen and pelvis was back in January. Should this persist could consider reimaging. (3) Stented coronary artery: He is status post angioplasty of LAD He is receiving appropriate treatment with Plavix, aspirin, statin, beta-donald He is status post ST elevation [place]. He received another angiogram today secondary to persistent pain. Plan Other medical problems as outlined in past medical history Thank you for this consultation. I will continue to follow along with you I communicated my plans with his attending physician. Diagnoses Hypoxia R09.02 Vomiting R11.10 Stented coronary artery Z95.5 Time Spent (min) 49
--- NOTE | 2022-07-06 10:16 | PC.NURSE ---
Chest pain. Patient continues to have chest pain, causing nausea and dry heaving. Sublingual nitro given x2 with no relief. Performed 12 lead ekg, changes noted. Called Dr. Amin, reported findings, Provider stated The vessel has been open for over 48 hours and patient was taken back to lab this morning, stop doing ekgs, expected finding. Order received for PRN tramadol for pain.
[2022-07-06] MEDS: piperacillin-tazobactam 3.375 GM in sodium chloride 0.9% (plus) 50 ML IV ×2 (10:24→18:00)
[2022-07-06] MEDS: TRAMadol 50 mg Tablet PO (10:25)
[2022-07-06] MEDS: ondansetron 2 mg/ML SDV 2 mL 4 MG IVP ×2 (11:27→17:36)
[2022-07-06 13:32] LABS: Alanine Aminotransferase 86 U/L (0-41); Albumin Level 3.7 g/dL (3.5-5.2); Alkaline Phosphatase 154 U/L (40-130); Aspartate Amino Transferase 335 U/L (0-40); Globulin 2.6 g/dL (1.3-4.6); Lipase 12 U/L (13-60); Thyroid Stimulating Hormone 1.03 uIU/mL (0.27-4.20); Total Bilirubin 1.5 mg/dL (0.15-1.2); Total Protein 6.3 g/dL (6.6-8.7)
--- NOTE | 2022-07-06 14:18 | USR_ITS ---
PROCEDURE INFORMATION: Exam: US Abdomen, Limited; Right Upper Quadrant Exam date and time: 07/06/2022 5:09 PM Age: 66 years old Clinical indication: Nausea and vomiting; Additional info: Abnormal lft's, nausea, PT npo per nurse-kb 1503 TECHNIQUE: Imaging protocol: Real time ultrasound of the abdomen with image documentation. Limited exam focused on the right upper quadrant. COMPARISON: CT abdomen pelvis w con* [id number] 02/22/2022 2:04 PM FINDINGS: Pleural spaces: Right pleural effusion. Liver: Unremarkable. Gallbladder: No gallstones. No gallbladder wall thickening or pericholecystic fluid. Negative sonographic Brower's sign, as per the performing jewel sawyer. Biliary ducts: Normal. No stones. No dilation. Pancreas: Unremarkable as visualized. Right kidney: No mass. No definite stones. No hydronephrosis. US/US gall bladder [id number] IMPRESSION: Right pleural effusion.
[2022-07-06 16:55] LABS: Adenovirus Not Detected (NOT DETECT); Chlamydia Pneumoniae Not Detected (NOT DETECT); Coronavirus 229E,HKU1,NL63,OC4 Not Detected (NOT DETECT); Human Metapneumovirus Not Detected (NOT DETECT); Human Rhinovirus/Enterovirus Not Detected (NOT DETECT); Influenza A Not Detected (NOT DETECT); Influenza A H1 Not Detected (NOT DETECT); Influenza A H1-2009 Not Detected (NOT DETECT); Influenza A H3 Not Detected (NOT DETECT); Influenza B Not Detected (NOT DETECT); Mycoplasma Pneumoniae Not Detected (NOT DETECT); Parainfluenza Virus Type 1 Not Detected (NOT DETECT); Parainfluenza Virus Type 2 Not Detected (NOT DETECT); Parainfluenza Virus Type 3 Not Detected (NOT DETECT); Parainfluenza Virus Type 4 Not Detected (NOT DETECT); Respiratory Syncytial Virus A Not Detected (NOT DETECT); Respiratory Syncytial Virus B Not Detected (NOT DETECT); SARS-COV-2 Not Detected (NOT DETECT)
[2022-07-06] MEDS: pantoprazole DR 40 mg Tablet PO (17:31)
[2022-07-06] MEDS: atorvastatin 40 mg Tablet 80 MG PO (20:29)
[2022-07-07] VITALS (34 sets, daily range): BP systolic 85–147; BP diastolic 58–96; PULSE 71–102; RESP 15–29; TEMP 36.4–36.9; O2SAT 85–95
[2022-07-07] MEDS: piperacillin-tazobactam 3.375 GM in sodium chloride 0.9% (plus) 50 ML IV ×3 (02:57→19:04)
[2022-07-07 03:52] LABS: Basophils # 0.1 10^3/uL (0.0-0.1); Basophils % 0.4 %; Eosinophils # 0.1 10^3/uL (0.0-0.8); Eosinophils % 0.3 %; Hemoglobin 13.8 g/dL (11.7-16.6); Lymphocytes # 2.3 10^3/uL (0.8-4.8); Mean Corpuscular HGB Conc 31.4 g/dL (30.0-36.0); Mean Corpuscular Hemoglobin 28.7 pg (28.0-34.0); Mean Corpuscular Volume 91.5 fl (80-94); Mean Platelet Volume 11.8 fL (7.4-10.4); Monocytes # 1.7 10^3/uL (0.2-0.9); Monocytes % 9.8 %; Neutrophils # 13.16 10^3/uL (1.8-7.7); Neutrophils % 75.8 %; Nucleated Red Blood Cells % 0 %; Platelet Count 191 10^3/cmm (130-400); Red Blood Count 4.81 10^6/uL (4.1-5.3); White Blood Count 17.4 10^3/uL (4.0-10.0)
[2022-07-07 04:06] LABS: Alanine Aminotransferase 54 U/L (0-41); Albumin Level 3.2 g/dL (3.5-5.2); Alkaline Phosphatase 113 U/L (40-130); Aspartate Amino Transferase 123 U/L (0-40); Blood Urea Nitrogen 26 mg/dL (8-23); Calcium 8.4 mg/dL (8.5-10.5); Carbon Dioxide 27 mmol/L (22-29); Chloride 96 mmol/L (98-107); Globulin 2.9 g/dL (1.3-4.6); Glomerular Filtration Rate 66.8 mL/min (90-130); Glucose 115 mg/dL (65-115); Magnesium 1.8 mg/dL (1.7-2.3); Osmolality Calculated 284 mOsm/kg (285-295); Sodium 134 mmol/L (136-145); Total Bilirubin 1.7 mg/dL (0.15-1.2); Total Protein 6.1 g/dL (6.6-8.7)
[2022-07-07 08:04] LABS: Hepatitis A Antibody IgM Non-Reactive (Nonreactive); Hepatitis B Core IgM Non-Reactive (Nonreactive); Hepatitis B Surface Antigen Non-Reactive (Nonreactive); Hepatitis C Virus Antibody Non-Reactive (Nonreactive)
[2022-07-07] MEDS: aspirin 81 mg EC Tablet PO (08:33)
[2022-07-07] MEDS: metoprolol tartrate 50 mg Tablet PO ×2 (08:33→19:05)
[2022-07-07] MEDS: pantoprazole DR 40 mg Tablet PO ×2 (08:33→19:04)
[2022-07-07] MEDS: lisinopril 20 mg Tablet PO (08:33)
[2022-07-07] MEDS: FUROsemide 40 mg Tablet PO ×2 (08:34→16:38)
[2022-07-07] MEDS: clopidogrel 75 mg Tablet PO (08:34)
--- NOTE | 2022-07-07 08:34 | P.PN_ITS ---
Subjective Subjective: Trung looks like a different individual today. He is up in the chair, alert and somewhat cantankerous. His states this is the way he is all the time. He states he feels a lot better. The nausea and vomiting are gone. His chest pain is gone. He is requiring less oxygen. I asked Dr. Tiana brewer to see him yesterday and I very much appreciate his assistance. Patient was started on IV antibiotics for what we both presume is an aspiration pneumonitis which likely occurred when he was vomiting. Now that he looks back on it I suspect some of the nausea and vomiting where the narcotic pain relievers. He also appears to have benefited more from Reglan as opposed to Zofran. The tramadol helped some in lieu of the ketorolac. His white blood cell count is down to 17.4 from 23.8. He does have a high neutrophil count.His creatinine has remained stable. He is transaminases have been elevated but those are coming down. His bilirubin was also slightly high. I suspect this might have been related to passive congestion. A gallbladder ultrasound was obtained which was unremarkable. There is pleural effusions I am sure related to congestive heart failure and some volume overload. The fluids have been stopped and he is now on a 1200 mL fluid restriction. His chest x-ray did r eveal congestive heart failure. Vitals/I&O/Wt Last Vital Signs Temp 97.6 F 07/07/22 04:00 Pulse 90 07/07/22 08:17 Resp 23 H 07/07/22 06:30 BP 129/75 07/07/22 06:30 Pulse Ox 95 07/07/22 08:17 O2 Del Method 07/07/22 08:17 O2 Flow Rate 2 07/07/22 08:17 07/06/22 07/07/22 07/07/22 22:59 06:59 14:59 Intake Total 250 / 489.667 120 / 609.667 50 / 50 Output Total 300 / 600 400 / 1000 Balance -50 / -110.333 -280 / -390.333 50 / 50 Physical Exam Narrative: GENERAL: In general he looks and feels well HEENT: Exam within normal limits. NECK: Supple without jugular vein distention. The carotid upstroke is normal without bruits. BACK: Exam normal. LUNGS: Clear. HEART: Regular rate and rhythm. ABDOMEN: Benign without organomegaly or tenderness. EXTREMITIES: No edema. NEUROLOGIC: Exam normal. SKIN: Unremarkable. Data 07/07/22 02:54 07/07/22 02:54 A&P Assessment and plan (1) Vomiting: (2) Coronary stent thrombosis: (3) Hypoxia: (4) Stented coronary artery: (5) ST elevation myocardial infarction (STEMI): (6) Hypertension: (7) CAD (coronary artery disease): (8) Congestive heart failure: (9) Transaminitis: (10) Aspiration pneumonitis: Plan We will continue as is. No beds on stepdown but he could be transferred out when a bed is available. Continue beta-donald, Plavix, statin, aspirin, MACRINA inhibitor, p.o. Lasix. Up in the chair and walking. I would anticipate discharge in 1 to 2 days as long as he continues to do well. Attestations Medical Necessity Statement*: Continued hospitalization for acute SD, heart failure and aspiration pneumonia. Coding Level of Care Code 08808 Moderate MDM includes number and complexity of problems actively addressed during encounter, amount and/or complexity of data reviewed/ordered and described risk of complication, morbidity or mortality of management as do cumented and Moderate Time for a total of 32 minutes, includes reviewing past or interval history, examining/interviewing patient, counseling patient/family/other support, updating patient/family/other support, discussing plan of care with staff, communicating with other healthcare providers, docume nting encounter and coordinating care Diagnoses Vomiting R11.10 Coronary stent thrombosis T82.867A Hypoxia R09.02 Stented coronary artery Z95.5 ST elevation myocardial infarction (STEMI) I21.3 Hypertension I10 CAD (coronary artery disease) I25.10 Congestive heart failure I50.9 Transaminitis R74.01 Aspiration pneumonitis J69.0
--- NOTE | 2022-07-07 08:39 | PC.NURSE ---
Clarified with Dr. Amin administration of metoprolol and lisinopril as patient had soft blood pressure over night in low 100's systolic and previous shift had held these medications due to drop in blood pressure. Dr. Lincoln administration. See MAR.
--- NOTE | 2022-07-07 08:44 | PC.SOCIAL ---
IMM Update Pg. 2 of IMM updated and reviewed with patient, who verbalized understanding. Copy provided to patient, and copy placed in chart.
--- NOTE | 2022-07-07 10:22 | PM.PN ---
Subjective Subjective: Trung reports he feels better today. He is not nauseated. He did sleep some last night. No complaints of chest discomfort this morning. No abdominal discomfort. Medications: Reviewed: Yes Vitals/I&O/Wt Last Vital Signs Temp 97.6 F 07/07/22 04:00 Pulse 90 07/07/22 08:17 Resp 23 H 07/07/22 06:30 BP 129/75 07/07/22 06:30 Pulse Ox 95 07/07/22 08:17 O2 Del Method 07/07/22 08:17 O2 Flow Rate 2 07/07/22 08:17 07/06/22 07/07/22 07/07/22 22:59 06:59 14:59 Intake Total 250 / 489.667 120 / 609.667 410 / 410 Output Total 300 / 600 400 / 1000 Balance -50 / -110.333 -280 / -390.333 410 / 410 Physical Exam Narrative: General exam is a white male, appears more vibrant, oxygen weaning and he was on 4 L when I saw him. Neck supple no lymphadenopathy thyromegaly Cardiovascular regular rate and rhythm, heart sounds distant Lungs diminished breath sounds bilaterally. No crackles. No wheezing. Abdomen is soft. Positive bowel sounds. No specific tenderness. No obvious organomegaly Extremities no cyanosis clubbing or edema, cap refill brisk Skin no rash Data 07/07/22 02:54 07/07/22 02:54 A&P Assessment and plan (1) Hypoxia: Patient has persistent hypoxia. Some of this may be secondary to fluid overload. He is still significantly positive from admission. Likely secondary to aspiration pneumonia as well as fluid overload. He has been started on IV antibiotics and cardiology is diuresing him. He is improving and is oxygen requirement is lessening. He is less symptomatic. CBC and BMP will be obtained in the morning (2) Vomiting: Patient has had some persistent nausea vomiting and belching. This is now improved Continue current nausea medication as needed Continue Protonix twice daily Check liver function tests, lipase were evaluated. Liver tests were slightly high, and I agree with cardiology this was likely secondary to passive congestion. No findings were noted on gallbladder ultrasound. No further imaging is needed currently. Repeat liver function test tomorrow. (3) Stented coronary artery: He is status post angioplasty of LAD He is receiving appropriate treatment with Plavix, aspirin, statin, beta-donald He is status post ST elevation [place]. He received another angiogram today secondary to persistent pain. Plan Other medical problems as outlined in past medical history Thank you for this consultation. I will continue to follow along with you Attestations Medical Necessity Statement*: As per primary Coding Level of Care Code Acute Code for Chg Fwd Diagnoses Hypoxia R09.02 Vomiting R11.10 Stented coronary artery Z95.5
--- NOTE | 2022-07-07 11:54 | PC.NURSE ---
Patient denies pain or discomfort during rounding thus far for this shift. Patient denies nausea as well, but reports he would like to get back to bed after lunch as he did not sleep much last night and is tired now. Patient has been up to chair since breakfast, vitals as charted.
[2022-07-07] MEDS: atorvastatin 40 mg Tablet 80 MG PO (20:20)
[2022-07-08] VITALS (14 sets, daily range): BP systolic 86–130; BP diastolic 43–85; PULSE 66–85; RESP 14–25; TEMP 36.8–37; O2SAT 89–95
[2022-07-08] MEDS: piperacillin-tazobactam 3.375 GM in sodium chloride 0.9% (plus) 50 ML IV ×3 (02:45→19:13)
[2022-07-08 03:50] LABS: Basophils # 0.1 10^3/uL (0.0-0.1); Basophils % 0.5 %; Eosinophils # 0.3 10^3/uL (0.0-0.8); Eosinophils % 1.9 %; Hematocrit 41.1 % (42.0-52.0); Hemoglobin 13.1 g/dL (11.7-16.6); Lymphocytes # 2.2 10^3/uL (0.8-4.8); Lymphocytes % 14.8 %; Mean Corpuscular HGB Conc 31.9 g/dL (30.0-36.0); Mean Corpuscular Hemoglobin 28.7 pg (28.0-34.0); Mean Corpuscular Volume 89.9 fl (80-94); Mean Platelet Volume 11.2 fL (7.4-10.4); Monocytes # 1.2 10^3/uL (0.2-0.9); Monocytes % 8.2 %; Neutrophils # 11.16 10^3/uL (1.8-7.7); Neutrophils % 74.1 %; Nucleated Red Blood Cells % 0 %; Platelet Count 173 10^3/cmm (130-400); Red Blood Count 4.57 10^6/uL (4.1-5.3); Red Cell Distribution Width 13.6 % (12.1-15.1); White Blood Count 15.1 10^3/uL (4.0-10.0)
[2022-07-08 04:11] LABS: Alanine Aminotransferase 42 U/L (0-41); Albumin Level 2.8 g/dL (3.5-5.2); Alkaline Phosphatase 116 U/L (40-130); Anion Gap 15.6 (5-19); Aspartate Amino Transferase 64 U/L (0-40); Blood Urea Nitrogen 31 mg/dL (8-23); Calcium 8.4 mg/dL (8.5-10.5); Carbon Dioxide 23 mmol/L (22-29); Chloride 100 mmol/L (98-107); Glomerular Filtration Rate 66.8 mL/min (90-130); Glucose 109 mg/dL (65-115); Osmolality Calculated 287 mOsm/kg (285-295); Potassium 3.6 mmol/L (3.5-5.1); Sodium 135 mmol/L (136-145); Total Bilirubin 0.8 mg/dL (0.15-1.2); Total Protein 5.8 g/dL (6.6-8.7)
--- NOTE | 2022-07-08 07:49 | PM.PN ---
Subjective Subjective: Trung continues to slowly improve. His nausea and vomiting have resolved. No more chest pain. Yesterday developed diarrhea. I noticed when I went in the room this morning that he is on contact precautions. When asked the nurses they said test was positive for C. difficile. I do not see that entered into his chart. He had several episodes of diarrhea yesterday. Other than that, he is feeling well. No arrhythmias. Vitals/I&O/Wt Last Vital Signs Temp 98.6 F 07/08/22 00:00 Pulse 82 07/08/22 06:00 Resp 25 H 07/08/22 06:00 BP 98/61 07/08/22 06:00 Pulse Ox 90 07/08/22 06:00 O2 Del Method 07/07/22 20:00 O2 Flow Rate 2 07/07/22 20:00 07/07/22 07/08/22 07/08/22 22:59 06:59 14:59 Intake Total 650 / 1180 100 / 1280 50 / 50 Output Total 200 / 700 Balance 450 / 480 100 / 580 50 / 50 Physical Exam Narrative: GENERAL: In general he looks and feels well HEENT: Exam within normal limits. NECK: Supple without jugular vein distention. The carotid upstroke is normal without bruits. BACK: Exam normal. LUNGS: Clear. HEART: Regular rate and rhythm. ABDOMEN: Benign without organomegaly or tenderness. EXTREMITIES: No edema. NEUROLOGIC: Exam normal. SKIN: Unremarkable. Data 07/08/22 03:43 07/08/22 03:43 A&P Assessment and plan (1) Aspiration pneumonitis: (2) Transaminitis: (3) Congestive heart failure: (4) Vomiting: (5) Coronary stent thrombosis: (6) Hypoxia: (7) Stented coronary artery: (8) ST elevation myocardial infarction (STEMI): (9) Hypertension: (10) CAD (coronary artery disease): (11) Acute CVA (cerebrovascular accident): (12) NSTEMI (non-ST elevated myocardial infarction): (13) Clostridium difficile enterocolitis: Plan We checked with the lab and they say that C. difficile toxin was detected. I will speak with Dr. Coronado to determine what to do with the antibiotics. From a cardiac standpoint he has improved. I did not change any of his cardiac medications today. I expect him to be in the hospital another day or 2. He is uncomfortable going home because his is very sick and chronically ill. Attestations Medical Necessity Statement*: Continued hospitalization for management of acute myocardial infarction, heart failure, transaminitis and C. difficile enterocolitis. and Moderate Time for a total of 20 minutes, includes reviewing past or interval history, examining/interviewing patient, counseling patient/family/other support, updating patient/family/other support, discussing plan of care with staff, communicating with other healthcare providers, documenting encounter and coordinating care Diagnoses Aspiration pneumonitis J69.0 Transaminitis R74.01 Congestive heart failure I50.9 Vomiting R11.10 Coronary stent thrombosis T82.867A Hypoxia R09.02 Stented coronary artery Z95.5 ST elevation myocardial infarction (STEMI) I21.3 Hypertension I10 CAD (coronary artery disease) I25.10 Acute CVA (cerebrovascular accident) I63.9 NSTEMI (non-ST elevated myocardial infarction) I21.4 Clostridium difficile enterocolitis A04.72
[2022-07-08] MEDS: aspirin 81 mg EC Tablet PO (08:07)
[2022-07-08] MEDS: lisinopril 20 mg Tablet PO (08:07)
[2022-07-08] MEDS: clopidogrel 75 mg Tablet PO (08:07)
[2022-07-08] MEDS: FUROsemide 40 mg Tablet PO ×2 (08:07→17:43)
[2022-07-08] MEDS: metoprolol tartrate 50 mg Tablet PO ×2 (08:07→17:43)
[2022-07-08] MEDS: pantoprazole DR 40 mg Tablet PO ×2 (08:08→17:43)
--- NOTE | 2022-07-08 10:01 | P.PN_ITS ---
Subjective Subjective: Reports feeling well today. Nursing reports overnight that his stool was positive for C-diff. Has not started ABx at this time. Denies pain, but is still having frequent diarrhea. Vitals/I&O/Wt Last Vital Signs Temp 98.6 F 07/08/22 00:00 Pulse 84 07/08/22 08:00 Resp 25 H 07/08/22 06:00 BP 98/61 07/08/22 06:00 Pulse Ox 91 07/08/22 08:00 O2 Del Method 07/08/22 08:00 O2 Flow Rate 2 07/07/22 20:00 07/07/22 07/08/22 07/08/22 22:59 06:59 14:59 Intake Total 650 / 1180 100 / 1280 170 / 170 Output Total 200 / 700 250 / 250 Balance 450 / 480 100 / 580 -80 / -80 Physical Exam Narrative: General: Cooperative patient in no apparent distress. Well developed. HEENT: Normocephalic, Atraumatic. External ears normal. Nasal passages patent without drainage. MMM. Heart: RRR. Resp: LCTA. No respiratory distress, no use of accessory muscles. Abd: Soft, non-tender. Non-distended. Extremities: No edema. Skin: No rash or lesions on exposed areas. Data 07/08/22 03:43 07/08/22 03:43 Micro: Microbiology 07/07/22 21:07 C.difficile Toxin B Gene (PCR) - Final Stool Routine Collection A&P Assessment and plan (1) Hypoxia: Patient has persistent hypoxia. Some of this may be secondary to fluid overload. He is still significantly positive from admission. Likely secondary to aspiration pneumonia as well as fluid overload. He has been started on IV antibiotics and cardiology is diuresing him. He is improving and is oxygen requirement is lessening. He is less symptomatic. CBC and BMP will be obtained in the morning (2) Vomiting: Patient has had some persistent nausea vomiting and belching. This is now improved Continue current nausea medication as needed Continue Protonix twice daily Check liver function tests, lipase were evaluated. Liver tests were slightly high, and I agree with cardiology this was likely secondary to passive congestion. No findings were noted on gallbladder ultrasound. No further imaging is needed currently. Repeat liver function test tomorrow. (3) Stented coronary artery: He is status post angioplasty of LAD He is receiving appropriate treatment with Plavix, aspirin, statin, beta-donald He is status post ST elevation [place]. He received another angiogram today secondary to persistent pain. (4) C. difficile colitis: C-diff toxin positive in stool Start oral Vanc QID. He will need to complete 10 days worth of medications. Rx will need to be sent at discharge. BP stable. Plan Other medical problems as outlined in past medical history Thank you for this consultation. I will continue to follow along with you Code Status: Full IVF: None DVT PPx: SCD's GI PPx: Protonix ABx: Oral Vanc Diet: CC Discharge plan: Home when appropriate. Attestations Medical Necessity Statement*: Continued hospitalization for management of acute myocardial infarction, heart failure, transaminitis and C. difficile enterocolitis. Coding Level of Care Code Acute Code for [facility] Diagnoses Hypoxia R09.02 Vomiting R11.10 Stented coronary artery Z95.5 C. difficile colitis A04.72
[2022-07-08] MEDS: atorvastatin 40 mg Tablet 80 MG PO (20:47)
[2022-07-09] VITALS (9 sets, daily range): BP systolic 96–107; BP diastolic 52–73; PULSE 66–84; RESP 13–26; TEMP 36.8; O2SAT 88–94
[2022-07-09] MEDS: piperacillin-tazobactam 3.375 GM in sodium chloride 0.9% (plus) 50 ML IV ×2 (02:26→11:40)
[2022-07-09] MEDS: aspirin 81 mg EC Tablet PO (09:28)
[2022-07-09] MEDS: pantoprazole DR 40 mg Tablet PO (09:28)
[2022-07-09] MEDS: clopidogrel 75 mg Tablet PO (09:28)
[2022-07-09] MEDS: FUROsemide 40 mg Tablet PO (09:28)
[2022-07-09] MEDS: lisinopril 20 mg Tablet PO (09:28)
[2022-07-09] MEDS: metoprolol tartrate 50 mg Tablet PO (09:28)
[2022-07-09 09:50] LABS: Basophils # 0.1 10^3/uL (0.0-0.1); Basophils % 0.6 %; Eosinophils # 0.4 10^3/uL (0.0-0.8); Eosinophils % 3.5 %; Hematocrit 46.4 % (42.0-52.0); Hemoglobin 14.3 g/dL (11.7-16.6); Lymphocytes % 16.2 %; Mean Corpuscular HGB Conc 30.8 g/dL (30.0-36.0); Mean Corpuscular Hemoglobin 29.1 pg (28.0-34.0); Mean Corpuscular Volume 94.3 fl (80-94); Mean Platelet Volume 11.8 fL (7.4-10.4); Monocytes # 0.9 10^3/uL (0.2-0.9); Monocytes % 7.2 %; Neutrophils # 8.94 10^3/uL (1.8-7.7); Neutrophils % 72.2 %; Nucleated Red Blood Cells % 0 %; Platelet Count 147 10^3/cmm (130-400); Red Blood Count 4.92 10^6/uL (4.1-5.3); Red Cell Distribution Width 13.4 % (12.1-15.1); White Blood Count 12.4 10^3/uL (4.0-10.0)
[2022-07-09 10:23] LABS: NT Pro B Type Natriuretic Pept 5063 pg/mL (0-125); Procalcitonin 0.12 ng/mL (0-0.5)
[2022-07-09 10:34] LABS: Anion Gap 20.4 (5-19); Blood Urea Nitrogen 24 mg/dL (8-23); C Reactive Protein 58.2 mg/L (0.0-4.9); Calcium 8.8 mg/dL (8.5-10.5); Carbon Dioxide 18 mmol/L (22-29); Chloride 102 mmol/L (98-107); Glomerular Filtration Rate 84.2 mL/min (90-130); Glucose 128 mg/dL (65-115); Osmolality Calculated 290 mOsm/kg (285-295); Potassium 3.4 mmol/L (3.5-5.1); Sodium 137 mmol/L (136-145)
--- NOTE | 2022-07-09 12:55 | P.PN_ITS ---
Subjective Subjective: Patient was seen this morning, he was seen multiple times, he feels a lot better, he is wondering when he can go home, he does tell me that last night he took a whole bottle of vancomycin, it is a bit confused if he was supposed to be taking this much, I spoke to nursing staff, they were able to f ind the bottle of vancomycin, and they were not able to reach the nurse, but potentially patient took 6 doses of p.o. vancomycin at 1 time, he denies any nausea, no vomiting no abdominal pain,, afebrile, patient was seen again in the afternoon he is feeling well, he is on room air, denies any shortness of breath his had lunch, wants to go home. Discussed starting vancomycin tomorrow, for 7 remaining days, handwashing, to prevent spread of C. difficile. Take antibiotics as prescribed for aspiration pneumonia, limit fluid intake to 1.5 to 2 L, take aspirin Plavix as prescribed please do not stop taking medication, if you develop bloody or black stools go to emergency room, he voiced understa nding, all questions answered Vitals/I&O/Wt Last Vital Signs Temp 98.2 F 07/09/22 02:43 Pulse 70 07/09/22 08:00 Resp 14 07/09/22 05:00 BP 99/55 07/09/22 05:00 Pulse Ox 94 07/09/22 08:00 O2 Del Method 07/09/22 08:00 O2 Flow Rate 2 07/07/22 20:00 07/08/22 07/09/22 07/09/22 22:59 06:59 14:59 Intake Total 766 / 1158 220 / 1378 350 / 350 Output Total 300 / 1150 Balance 766 / 308 -80 / 228 350 / 350 Physical Exam Const: COMMON NORMALS: no acute distress and patient oriented x3 Resp: COMMON NORMALS: normal respiratory effort, No retractions, No use of accessory muscles and clear to auscultation bilaterally AUSCULTATION: clear to auscultation bilaterally Cardio: COMMON NORMALS: regular rate, regular rhythm, S1 normal heart sound present and S2 normal heart sound present RATE: regular rate RHYTHM: regular rhythm HEART SOUNDS: S1 normal heart sound present and S2 normal heart sound present GI: COMMON NORMALS: Normal to inspection, nondistended, normoactive bowel sounds present and non-tender Extremity: COMMON NORMALS: no pedal edema Neuro: COMMON NORMALS: patient oriented x3 Psych: COMMON NORMALS: mental status grossly normal Data 07/09/22 09:19 07/09/22 09:19 Micro: Microbiology 07/07/22 21:07 C.difficile Toxin B Gene (PCR) - Final Stool Routine Collection A&P Assessment and plan (1) Hypoxia: Likely aspiration pneumonitis fluid overload resolved on room air (2) Vomiting: Resolved (3) Stented coronary artery: He is status post angioplasty of LAD He is receiving appropriate treatment with Plavix, aspirin, statin, beta-donald He is status post ST elevation AK. He received another angiogram today secondary to persistent pain. (4) C. difficile colitis: C-diff toxin positive in stool He potentially received 6 doses early this morning, unable to confirm as we were not able to reach nurse, he has no complaints, no chest pain, no shortness of breath no abdominal pain no diarrhea Start oral Vanc QID tomorrow, finish off 7 days Plan Other medical problems as outlined in past medical history Thank you for this consultation. I will continue to follow along with you Code Status: Full IVF: None DVT PPx: SCD's GI PPx: Protonix ABx: Oral Vanc Diet: CC Discharge plan: Home when appropriate. Attestations Medical Necessity Statement*: Patient will be discharged today Time Spent in Patient Care: Greater than 35 minutes Diagnoses Hypoxia R09.02 Vomiting R11.10 Stented coronary artery Z95.5 C. difficile colitis A04.72
--- NOTE | 2022-07-09 13:13 | P.DS_ITS ---
Discharge Providers Date of Admission: 07/04/22 15:39 Date of Discharge: July 09, 2022 Attending Provider at Admission: Karlos Amin MD Attending Provider at Discharge: Dr. SCOTTIE Grissom Consults: Dr. Guanakito Coronado, internal medicine Primary Care Provider: Brice Sanderson MD Diagnoses at Discharge Discharge Diagnosis (1) Hypoxia: Details from hospital stay: Hypoxia was thought to be related to CHF/possible aspiration pneumonitis. Patient was treated with IV Lasix and antibiotics. Symptomatically improved. Status: Acute (2) Vomiting: Details from hospital stay: Excised etiology is not clear. Possibility of an acute gastritis is a consideration. Patient was treated with Protonix and other symptomatic measures Status: Acute (3) Stented coronary artery: Details from hospital stay: Acute stent thrombosis. Patient was taken to the cardiac relative's lab and was found to have thrombosis of the stent in the LAD. He underwent angioplasty of this lesion. Status: Acute (4) C. difficile colitis: Details from hospital stay: Treated with p.o. vancomycin. Patient responded appropriately. The diarrhea is currently resolved Status: Acute Other Information Additional DC diagnoses/information: Patient was treated with IV vancomycin for possible aspiration pneumonia. Also was treated with IV Lasix for CHF/fluid overload Reason for Visit Reason for Visit: chest pain Hospital Course Hospital Course This patient was admitted to hospital with a features of an acute anterior wall OH. He had a PCI of the LAD last year following a non-ST elevation myocardial infarction. Patient apparently stopped taking the aspirin and Plavix approximately 3 weeks ago prior to his current procedure. This was never restarted. He was found to have features of stent thrombosis. He underwent emergent angioplasty of this lesion. He may have had some distal embolization. Patient continued to have chest pain following the intervention. For this reason, he was taken back to the cardiac arrhythmia lab and a repeat angiogram was performed. The angioplasty lesion was found to be widely patent. Patient was treated with morphine and other symptomatic measures. He also was found to be hypoxic with a persistent leukocytosis. Considering the possibility of aspiration pneumonitis, he was treated with IV vancomycin. Subsequently he developed C. difficile diarrhea. He was treated with p.o. vancomycin. He is symptomatically improved. Currently he is ambulating on telemetry with no significant symptoms. His white cell count dropped from 23.8 thousand to 12.4 thousand today. The BUN went up to 30 but currently it is 24. Since he is remaining stable, he is being discharged home today. Hospitalist service was consulted for the management of hypoxia and leukocytosis. He was started on IV vancomycin and then switched to p.o. He is currently remaining afebrile and is on room air with oxygen saturation 94%. Physical Exam Narrative: GENERAL: The patient is alert and oriented times three. Not in any acute distress. HEENT: No significant pallor, icterus or lymphadenopathy.Oral cavity: There are no mucous membrane lesions. NECK: Trachea appears to be central. No masses noted. No JVD or thyromegaly appreciated. RESPIRATORY: Chest is symmetrical. No intercostals muscle retraction or any accessory muscle activation. There is no chest wall tenderness. Breath sounds are heard bilaterally. No rales or rhonchi heard. No evidence of any consolidation. BREASTS: Deferred. HEART: The heart sounds are normal. No S3 or S4. Short systolic murmur in the lower sternal border. No diastolic murmurs. No pericardial rub ABDOMEN: No vessel pulsations or distention. No tenderness. No organomegaly appreciated. Bowel sounds are normally heard. : Deferred. RECTAL: Deferred. LYMPHATIC: No lymphadenopathy noted in the neck. EXTREMITIES: No edema or cyanosis. No clubbing. MUSCULOSKELETAL: No acute joint deformities or swelling SKIN: There are no significant rashes or ecchymosis NEUROPSYCHIATRIC: The patient is alert and oriented x3. Appears to be in a good mood. No tremors or rigidity noted. 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 echo complete* [id number] Routine Ultrasound 07/05/22 06:30 Completed US gall bladder [id number] Routine Ultrasound 07/06/22 14:18 Completed Radiology Impressions Chest X-Ray 07/05/22 06:30 IMPRESSION: Interval development of CHF pattern with lower lobe pulmonary congestion. Gallbladder Ultrasound 07/06/22 14:18 IMPRESSION: Right pleural effusion. Laboratory Results WBC 12.4 10^3/uL (4.0-10.0) H 07/09/22 09:19 RBC 4.92 10^6/uL (4.1-5.3) 07/09/22 09:19 Hgb 14.3 g/dL (11.7-16.6) 07/09/22 09:19 Hct 46.4 % (42.0-52.0) 07/09/22 09:19 MCV 94.3 fl (80-94) H 07/09/22 09:19 MCH 29.1 pg (28.0-34.0) 07/09/22 09:19 MCHC 30.8 g/dL (30.0-36.0) 07/09/22 09:19 RDW 13.4 % (12.1-15.1) 07/09/22 09:19 Plt Count 147 10^3/cmm (130-400) 07/09/22 09:19 MPV 11.8 fL (7.4-10.4) H 07/09/22 09:19 Neut % (Auto) 72.2 % 07/09/22 09:19 Lymph % (Auto) 16.2 % 07/09/22 09:19 [place] % (Auto) 7.2 % 07/09/22 09:19 Eos % (Auto) 3.5 % 07/09/22 09:19 Baso % (Auto) 0.6 % 07/09/22 09:19 Neut # (Auto) 8.94 10^3/uL (1.8-7.7) H 07/09/22 09:19 Lymph # (Auto) 2.0 10^3/uL (0.8-4.8) 07/09/22 09:19 [place] # (Auto) 0.9 10^3/uL (0.2-0.9) 07/09/22 09:19 Eos # (Auto) 0.4 10^3/uL (0.0-0.8) 07/09/22 09:19 Baso # (Auto) 0.1 10^3/uL (0.0-0.1) 07/09/22 09:19 Nucleated RBC % (auto) 0 % 07/09/22 09:19 Nucleated RBCs # 0.0 /100WBC 07/09/22 09:19 APTT 39.9 SECONDS (23.9-36.7) H 07/04/22 17:02 Sodium 137 mmol/L (136-145) 07/09/22 09:19 Potassium 3.4 mmol/L (3.5-5.1) L 07/09/22 09:19 Chloride 102 mmol/L (98-107) 07/09/22 09:19 Carbon Dioxide 18 mmol/L (22-29) L 07/09/22 09:19 Anion Gap 20.4 (5-19) H 07/09/22 09:19 BUN 24 mg/dL (8-23) H 07/09/22 09:19 Creatinine 0.9 mg/dL (0.7-1.2) 07/09/22 09:19 GFR Calculation 84.2 mL/min (90-130) L 07/09/22 09:19 Glucose 128 mg/dL (65-115) H 07/09/22 09:19 Calculated Osmolality 290 mOsm/kg (285-295) 07/09/22 09:19 Calcium 8.8 mg/dL (8.5-10.5) 07/09/22 09:19 Magnesium 1.8 mg/dL (1.7-2.3) 07/07/22 02:54 Total Bilirubin 0.8 mg/dL (0.15-1.2) 07/08/22 03:43 Direct Bilirubin 0.30 mg/dL (0.00-0.30) 07/06/22 02:31 AST 64 U/L (0-40) H 07/08/22 03:43 ALT 42 U/L (0-41) H 07/08/22 03:43 Alkaline Phosphatase 116 U/L (40-130) 07/08/22 03:43 Troponin T Gen 5 ng/L > 50662 ng/L (0-15) H* 07/05/22 06:51 C-Reactive Protein 58.2 mg/L (0.0-4.9) H 07/09/22 09:19 NT-Pro-B Natriuret Pep 5063 pg/mL (0-125) H 07/09/22 09:19 Total Protein 5.8 g/dL (6.6-8.7) L 07/08/22 03:43 Albumin 2.8 g/dL (3.5-5.2) L 07/08/22 03:43 Globulin 3.0 g/dL (1.3-4.6) 07/08/22 03:43 Lipase 12 U/L (13-60) L 07/06/22 02:31 Procalcitonin 0.12 ng/mL (0-0.5) 07/09/22 09:19 TSH 1.03 uIU/mL (0.27-4.20) 07/06/22 02:31 Coronavirus 229E (PCR) Not detected (NOT DETECT) 07/06/22 15:02 Hepatitis A IgM Ab Non-reactive (Nonreactive) 07/07/22 02:54 Hep Bs Antigen Non-reactive (Nonreactive) 07/07/22 02:54 Hep B Core IgM Ab Non-reactive (Nonreactive) 07/07/22 02:54 Hepatitis C Antibody Non-reactive (Nonreactive) 07/07/22 02:54 SARS-CoV-2 (PCR) Not detected (NOT DETECT) 07/06/22 15:02 Additional Data from Hospital Stay Echocardiogram on 07/05/2022 ?There is a relatively poor quality study.? The apical view is ?the only reasonable view.? The apex and anterior wall are ?akinetic suggesting an anterior wall OH.? The remainder of the ?ventricle contracts normally.? The ejection fraction is about ?40%.? Grade 1 diastolic dysfunction. ?Previous study was 1 year ago.? It was an equally difficult ?study revealed normal left ventricular function at the time of ?the previous LAD stent placement. Procedures Performed Left heart catheterization with the coronary angiogram followed by PCI of the LAD lesion on 07/05/2019 Repeat coronary angiogram on 07/05/2022 Vitals Last Vital Signs Temp 98.2 F 07/09/22 02:43 Pulse 70 07/09/22 08:00 Resp 14 07/09/22 05:00 BP 99/55 07/09/22 05:00 Pulse Ox 94 07/09/22 08:00 O2 Del Method 07/09/22 08:00 O2 Flow Rate 2 07/07/22 20:00 Discharge Plan Discharge Patient Disposition: Home Condition: Stable Prescriptions: New nitroglycerin 0.4 mg Tablet, Sublingual 0.4 mg sublingual Q5M PRN (Reason: Chest Pain) 30 Days Qty: 30 0RF amoxicillin-pot clavulanate 875-125 mg tablet 1 tab PO BID 5 Days Qty: 10 0RF vancomycin 125 mg capsule 125 mg PO Q6H 7 Days Qty: 28 0RF Rx Instructions: PLEASE START TOMMOROW metoprolol tartrate 25 mg tablet 25 mg PO BID 30 Days Qty: 60 5RF furosemide [Lasix] 40 mg tablet 40 mg PO DAILY Qty: 30 0RF pantoprazole [Protonix] 40 mg tablet,delayed release (DR/EC) 40 mg PO DAILY 42 Days Qty: 30 0RF potassium chloride 20 mEq tablet extended release 20 meq PO DAILY Qty: 30 0RF Continued metformin 500 mg tablet 500 mg PO BID (DME) SOLE SUPPORT - 1 PAIR See Rx Instructions .Route .MEDSUPPLY Qty: 1 0RF Rx Instructions: As directed (DME) Diabetic Shoes with 3 pairs of inserts See Rx Instructions .ROUTE .MEDSUPPLY Qty: 1 0RF Rx Instructions: As directed HOME lisinopril 40 mg tablet 40 mg PO DAILY Qty: 90 3RF (DME) diabetic supplies, miscellan. Misc See Rx Instructions .Route Qty: 1 0RF Rx Instructions: As directed clopidogrel 75 mg tablet 75 mg PO DAILY atorvastatin 40 mg tablet 40 mg PO BEDTIME 30 Days Qty: 30 0RF aspirin 81 mg Tablet,Delayed Release (Dr/Ec) 81 mg PO DAILY 30 Days Qty: 30 0RF isosorbide mononitrate 30 mg tablet extended release 24 hr 30 mg PO DAILY 30 Days Qty: 30 0RF Discontinued metoprolol tartrate 50 mg tablet 50 mg PO DAILY Qty: 90 3RF Discharge Orders: Discharge Order (Routine); Ordered 07/09/22 Ordered By: Aide Grissom Discharge Diet: Advance as tolerated Discharge Activity: Increase activity as tolerated Patient Instructions: Opioid Safety Activity Restrictions/Additional Instructions: Appointment the [facility] in 1 week to 10 days, to be seen by the nurse practitioner. Appointment with the Dr. Amin in 1 month In the event of the patient develop any unusual chest pain or shortness of breath, advised to contact our office or come back to the hospital Discharge Attestations Time Spent in Discharge Care*: greater than 30 min Quality Metrics Clinical Quality Measures [ No reported AMI, CVA or VTE this stay] Coding Level of Care Code Critical Care >/= 30 minutes Diagnoses Hypoxia R09.02 Vomiting R11.10 Stented coronary artery Z95.5 C. difficile colitis A04.72
[2022-07-09] MEDS: potassium chloride ER 20 mEq Tablet 40 MEQ PO (13:27)
--- NOTE | 2022-07-09 14:08 | PC.NURSE ---
All D/C instructions educated to patient, patient signed D/C form
--- NOTE | 2022-07-09 14:39 | PC.NURSE ---
Patient transported home by granddaughter
== END 2022-07-09 14:39 | disposition home or self-care (01) | DRG 250 ==
LOC: ER 13:51 → CCL 13:59 → ICU 15:19
PROVIDERS: Internal Medicine; Admitting Provider Internal Medicine Cardiovascular Disease; Emergency Provider Family Medicine; PCP Family Medicine; Visit Provider Family Medicine
PROC: 02703ZZ Dilation of Coronary Artery, One Artery, Percutaneous Approach (ICD-10-PCS; principal; 2022-07-04 14:00)
PROC: 02703ZZ Dilation of Coronary Artery, One Artery, Percutaneous Approach (ICD-10-PCS; 2022-07-04 14:00)
PROC: B2101ZZ Fluoroscopy of Single Coronary Artery using Low Osmolar Contrast (ICD-10-PCS; principal; 2022-07-06 05:30)
DX: I21.A9 Other myocardial infarction type (principal); J69.0 Pneumonitis due to inhalation of food and vomit; I97.190 Other postprocedural cardiac functional disturbances following cardiac surgery; T82.867A Thrombosis due to cardiac prosthetic devices, implants and grafts, initial encounter; A04.72 Enterocolitis due to Clostridium difficile, not specified as recurrent; Y71.8 Miscellaneous cardiovascular devices associated with adverse incidents, not elsewhere classified; I10 Essential (primary) hypertension; I25.10 Atherosclerotic heart disease of native coronary artery without angina pectoris; Z95.5 Presence of coronary angioplasty implant and graft; T45.526A Underdosing of antithrombotic drugs, initial encounter; T39.016A Underdosing of aspirin, initial encounter; Z91.128 Patient's intentional underdosing of medication regimen for other reason; Z79.02 Long term (current) use of antithrombotics/antiplatelets; Z79.82 Long term (current) use of aspirin
CPT/HCPCS: 36415; 71045; 76705; 80048; 80053; 80074; 80076; 83690; 83735; 83880; 84145; 84443; 84484; 85025; 85730; 86140; 87493; 87635; 92920; 93005; 93306; 93454; 96365; 96367; 96375; 99152; 99153; C1725; C1769; C1887; C1894; J0360; J1644; J1885; J1940; J2060; J2250; J2270; J2405; J2543; J2765; J3010; J3370; J3490; J7030; Q9967

== ENCOUNTER 2022-07-11 14:15 | Outpatient (CLI) | payer MEDICARE, SELFPAY | END 2022-07-11 14:16 | disposition home or self-care (01) | LOC: SPT 14:16 | PROVIDERS: PCP Family Medicine; Visit Provider Podiatrist Foot & Ankle Surgery | DX: Z46.89 Encounter for fitting and adjustment of other specified devices (principal); M21.41 Flat foot [pes planus] (acquired), right foot; M21.42 Flat foot [pes planus] (acquired), left foot | CPT/HCPCS: 97760; L3030 ==

== ENCOUNTER → 2022-07-26 09:59 | Outpatient (BNVA) | payer MEDICARE, SELFPAY | PROVIDERS: PCP Family Medicine; Visit Provider Nurse Practitioner Family | DX: I25.10 Atherosclerotic heart disease of native coronary artery without angina pectoris (principal); I11.0 Hypertensive heart disease with heart failure; I50.9 Heart failure, unspecified; Z79.82 Long term (current) use of aspirin | CPT/HCPCS: 36415; 99214 ==

== ENCOUNTER 2022-07-29 08:34 | Outpatient (CLI) | payer MEDICARE, SELFPAY ==
[2022-07-29 09:13] LABS: Blood Urea Nitrogen 36 mg/dL (8-23); Calcium 8.9 mg/dL (8.5-10.5); Carbon Dioxide 24 mmol/L (22-29); Chloride 102 mmol/L (98-107); Glomerular Filtration Rate 43.3 mL/min (90-130); Glucose 117 mg/dL (65-115); Osmolality Calculated 293 mOsm/kg (285-295); Sodium 137 mmol/L (136-145)
[2022-07-29 09:26] LABS: Anion Gap 16.5 (5-19); Potassium 5.5 mmol/L (3.5-5.1)
== END 2022-07-29 08:35 | disposition home or self-care (01) ==
PROVIDERS: PCP Family Medicine; Visit Provider Nurse Practitioner Family
DX: I10 Essential (primary) hypertension (principal); I25.10 Atherosclerotic heart disease of native coronary artery without angina pectoris
CPT/HCPCS: 36415; 80048

== ENCOUNTER → 2022-08-15 09:49 | Outpatient (BNVA) | payer MEDICARE, SELFPAY | PROVIDERS: PCP Family Medicine; Visit Provider Podiatrist Foot & Ankle Surgery | DX: M21.612 Bunion of left foot (principal); M21.611 Bunion of right foot; Z79.84 Long term (current) use of oral hypoglycemic drugs; E11.40 Type 2 diabetes mellitus with diabetic neuropathy, unspecified; M21.42 Flat foot [pes planus] (acquired), left foot; M21.41 Flat foot [pes planus] (acquired), right foot | CPT/HCPCS: 99213 ==

== ENCOUNTER → 2022-09-06 10:56 | Outpatient (BNVA) | payer MEDICARE, SELFPAY | PROVIDERS: PCP Family Medicine; Visit Provider Internal Medicine Cardiovascular Disease | DX: I25.10 Atherosclerotic heart disease of native coronary artery without angina pectoris (principal); I10 Essential (primary) hypertension; Z95.5 Presence of coronary angioplasty implant and graft; Z86.73 Personal history of transient ischemic attack (TIA), and cerebral infarction without residual deficits; Z86.718 Personal history of other venous thrombosis and embolism; Z79.01 Long term (current) use of anticoagulants | CPT/HCPCS: 99213 ==

== ENCOUNTER → 2023-03-17 11:17 | Outpatient (BNVA) | payer MEDICARE, SELFPAY | PROVIDERS: PCP Family Medicine; Visit Provider Internal Medicine Cardiovascular Disease | DX: I25.10 Atherosclerotic heart disease of native coronary artery without angina pectoris (principal); Z95.5 Presence of coronary angioplasty implant and graft; I10 Essential (primary) hypertension; I25.2 Old myocardial infarction | CPT/HCPCS: 99213 ==

== ENCOUNTER 2023-07-12 10:33 | Observation (INO) | payer MEDICARE, MEDICAID, SELFPAY ==
[2023-07-12] VITALS (7 sets, daily range): BP systolic 129–143; BP diastolic 63–85; PULSE 52–67; RESP 11–20; TEMP 36.3; O2SAT 91–98; BMI 31.0
--- NOTE | 2023-07-12 10:34 | ECG_ITS ---
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 Measurements Intervals [place] Rate: 58 P: 46 MO: 175 QRS: -56 QRSD: 103 T: 66 QT: 432 QTc: 427 Interpretive Statements SINUS BRADYCARDIA PATTERN CONSISTENT WITH PULMONARY DISEASE LEFT ANTERIOR FASCICULAR BLOCK [QRS AXIS <= -45, QR IN I, RS IN II] SEPTAL MYOCARDIAL INFARCTION , OF INDETERMINATE AGE [40+ ms Q WAVE IN V1/V2] Compared to ECG 07/06/2022 09:58:34 Sinus tachycardia no longer present Myocardial infarct finding still present Electronically Signed On 07-12-2023 10:56:00 CDT by Alex Cao M.D. [id number]
--- NOTE | 2023-07-12 10:34 | CT_ITS ---
WS: [id number] CT HEAD NONCONTRAST HISTORY: Symptoms of acute stroke TECHNIQUE: Contiguous axial imaging performed through the brain in 2.5 mm imaging. Bone and soft tiss ue windows. Sagittal and coronal reformats reviewed. All CT [facility] use at least one of these dose optimization techniques: automated exposure control; mA and/or kV adjustment per pa tient size (includes targeted exams where dose is matched to clinical indication); or iterative recon struction. DLP: 1123.99 mGy COMPARISON: 07/24/2021. No acute hemorrhage or edema. Very mild atrophy and small vessel ischemic disease. No prior infarct. Similar to the prior study fro 07/24/2021. Ventricles: Normal size with no hydrocephalus. Paranasal sinuses: As visualized are clear. Mastoid air cells: Well pneumatized. Calvarium and scalp: Skull is intact with no soft tissue edema or swelling. IMPRESSION: 1. No acute intracranial hemorrhage or edema. 2. Mild atrophy and mild small vessel ischemic disease. Stable since 07/24/2021. Notified Maximo Reece DO at 07/12/2023 10:43 AM.
--- NOTE | 2023-07-12 10:34 | XRR_ITS ---
PROCEDURE INFORMATION: Exam: XR Chest Exam date and time: 07/12/2023 10:59 AM Age: 67 years old Clinical indication: Other: Weakness; Additional info: CVA TECHNIQUE: Imaging protocol: Radiologic exam of the chest. Views: 1 view. COMPARISON: CR XR chest 1V portable [id number] 07/05/2022 7:53 PM FINDINGS: Lungs: Mild linear atelectasis at the left lung base. Pleural spaces: Unremarkable. No pleural effusion. No pneumothorax. Heart/Mediastinum: Borderline cardiomegaly. Bones/joints: Unremarkable. Other findings: Improved aeration when compared to 07/05/2022. XR/XR chest 1V portable [id number] IMPRESSION: Minimal residual discoid atelectasis in the left lower lobe.
[2023-07-12 10:48] LABS: Basophils # 0.1 10^3/uL (0.0-0.1); Basophils % 0.8 %; Eosinophils # 0.6 10^3/uL (0.0-0.8); Eosinophils % 4.6 %; Lymphocytes # 3.4 10^3/uL (0.8-4.8); Lymphocytes % 27.7 %; Mean Corpuscular HGB Conc 32.7 g/dL (30-55); Mean Corpuscular Hemoglobin 28.6 pg (27-33); Mean Corpuscular Volume 87.6 fl (82-101); Mean Platelet Volume 11.8 fL (7.4-10.4); Monocytes # 0.9 10^3/uL (0.2-0.9); Monocytes % 7.1 %; Neutrophils # 7.21 10^3/uL (1.8-7.7); Neutrophils % 59.5 %; Nucleated Red Blood Cells % 0 %; Platelet Count 238 10^3/cmm (157-399); Red Blood Count 5.48 10^6/uL (3.85-5.65); Red Cell Distribution Width 13.9 % (12.1-15.1); White Blood Count 12.13 10^3/uL (3.29-11.43)
--- NOTE | 2023-07-12 10:49 | ED_ITS ---
HPI - Neuro Symptoms/Deficit 2 General: Chief Complaint: Neuro Symptoms/Deficit Stated Complaint: Stroke alert Time Seen by Provider: 07/12/23 10:34 History of Present Illness: Patient brought into the ER by EMS with complaints of strokelike symptoms. They said patient had left-sided weakness, left facial droop and slurring of his speech. This all started approximately 930 this morning. They state patient was sitting at the breakfast table having breakfast talking to his Now he slumped over and when he came to a few minutes later he was having the symptoms. Patient does have a history of a stroke in the past. Patient also has diabetes and coronary artery disease with at least 1 stent couple years ago and [address] since then. Patient sees Dr. Amin for cardiology. Patient's PCP is Dr. Sanderson. Patient is on Plavix, Review of Systems 2 General: Reports: 10 or more systems reviewed and unremarkable except in HPI and below PFSH ED 2 PFSH: Medical History Clostridium difficile enterocolitis Aspiration pneumonitis Transaminitis Congestive heart failure Coronary stent thrombosis Hypoxia CVA (cerebral vascular accident) At 18 Dyspnea on exertion Hypertension Surgical History Stented coronary artery History of percutaneous coronary intervention Social History Smoking and tobacco/nicotine status: never used tobacco/nicotine Alcohol intake: former Substance/Drug Use: never Lives independently: Yes Household members: spouse Marital status: Physical Exam 2 Const: COMMON NORMALS: no acute distress, average body habitus, patient oriented x3, no limitations, healthy appearing, alert and well nourished HENMT: COMMON NORMALS: normocephalic, atraumatic, hearing grossly normal bilaterally, external ears normal, Normal external nose present, moist oral mucous membranes and oropharynx normal HEAD & SCALP: normocephalic and atraumatic NOSE: Normal external nose present EXTERNAL EAR: Yes external ears normal Eye: COMMON NORMALS: Equal, round and reactive pupils present, EOMs intact bilaterally, conjunctivae normal and no scleral icterus CONJUNCTIVA: Yes conjunctivae normal PUPIL: Yes Equal, round and reactive pupils present Neck/C-Spine: COMMON NORMALS: full ROM, no lymphadenopathy, supple, no meningeal signs, no JVD and Thyroid normal THYROID: Thyroid normal Chest: COMMONS NORMALS: normal inspection of the chest and normal palpation of entire chest wall Resp: COMMON NORMALS: normal respiratory effort, No retractions, No use of accessory muscles and clear to auscultation bilaterally AUSCULTATION: clear to auscultation bilaterally Cardio: COMMON NORMALS: no JVD, regular rate, regular rhythm, S1 normal heart sound present, S2 normal heart sound present, No gallops present (Cardio), No clicks present (Cardio), No murmurs present (Cardio) and No rub (Cardio) R ATE: regular rate RHYTHM: regular rhythm HEART SOUNDS: S1 normal heart sound present and S2 normal heart sound present GI: COMMON NORMALS: Normal to inspection, nondistended, normoactive bowel sounds present, Soft to palpation, non-tender, No hepatosplenomegaly present and no masses PALPATION: Yes Soft to palpation and Yes No hepatosplenomegaly present Neuro: COMMON NORMALS: patient oriented x3 SENSORIUM/ORIENTATION: Yes alert MENINGEAL SIGNS: Yes no meningeal signs Course 2 Vital Signs: Vital signs: Vital Signs Temperature 97.4 F L 07/12/23 10:45 Pulse Rate 52 L 07/12/23 13:01 Respiratory Rate 17 07/12/23 13:01 Blood Pressure 139/75 07/12/23 13:01 Pulse Oximetry 92 07/12/23 13:01 Oxygen Delivery Me thod Room Air 07/12/23 10:45 MDM - Neuro Symptoms/Deficit Medical Decision Making Dr. Camejo came to the ER to assess the patient. Dr. Camejo gave him an NIH of 1 for his slurring. He suggest admission for complete workup. If kidneys allow he wants a CT angio head and neck. Patient not a candidate for TNKase due to his Plavix. Patient will end up being treated medically for the CVA.. Regular stroke workup was performed. Dr. Ferrera was consulted who agreed to place him in observation for further workup and evaluation. Differential Diagnosis Likely cerebrovascular accident and transient cerebral ischemia; Unlikely carpal tunnel syndrome, convulsions, delirium, subarachnoid hemorrhage, peripheral neuropathy or multiple sclerosis Lab Data 07/12/23 10:14 07/12/23 10:14 Radiology Impressions Chest X-Ray 07/12/23 10:34 IMPRESSION: Minimal residual discoid atelectasis in the left lower lobe. Laboratory Results WBC 12.13 10^3/uL (3.29-11.43) H 07/12/23 10:14 RBC 5.48 10^6/uL (3.85-5.65) 07/12/23 10:14 Hgb 15.70 g/dL (11.27-16.99) 07/12/23 10:14 Hct 48.0 % (37-53) 07/12/23 10:14 MCV 87.6 fl (82-101) 07/12/23 10:14 MCH 28.6 pg (27-33) 07/12/23 10:14 MCHC 32.7 g/dL (30-55) 07/12/23 10:14 RDW 13.9 % (12.1-15.1) 07/12/23 10:14 Plt Count 238 10^3/cmm (157-399) 07/12/23 10:14 MPV 11.8 fL (7.4-10.4) H 07/12/23 10:14 Neut % (Auto) 59.5 % 07/12/23 10:14 Lymph % (Auto) 27.7 % 07/12/23 10:14 [place] % (Auto) 7.1 % 07/12/23 10:14 Eos % (Auto) 4.6 % 07/12/23 10:14 Baso % (Auto) 0.8 % 07/12/23 10:14 Neut # (Auto) 7.21 10^3/uL (1.8-7.7) 07/12/23 10:14 Lymph # (Auto) 3.4 10^3/uL (0.8-4.8) 07/12/23 10:14 [place] # (Auto) 0.9 10^3/uL (0.2-0.9) 07/12/23 10:14 Eos # (Auto) 0.6 10^3/uL (0.0-0.8) 07/12/23 10:14 Baso # (Auto) 0.1 10^3/uL (0.0-0.1) 07/12/23 10:14 Nucleated RBC % (auto) 0 % 07/12/23 10:14 Nucleated RBCs # 0.0 /100WBC 07/12/23 10:14 ESR 3 mm/hr (0-10) 07/12/23 10:14 PT 13.00 SECONDS (12.1-14.9) 07/12/23 10:14 INR 0.95 (0.8-1.2) 07/12/23 10:14 APTT 27.8 SECONDS (23.9-36.7) 07/12/23 10:14 Sodium 137 mmol/L (136-145) 07/12/23 10:14 Potassium 4.5 mmol/L (3.5-5.1) 07/12/23 10:14 Chloride 102 mmol/L (98-107) 07/12/23 10:14 Carbon Dioxide 20 mmol/L (22-29) L 07/12/23 10:14 Anion Gap 19.5 (5-19) H 07/12/23 10:14 BUN 15 mg/dL (8-23) 07/12/23 10:14 Creatinine 0.9 mg/dL (0.7-1.2) 07/12/23 10:14 GFR Calculation 83.9 mL/min (90-130) L 07/12/23 10:14 Glucose 137 mg/dL (65-115) H 07/12/23 10:14 POC Glucose 132 mg/dL (70-110) H 07/12/23 10:43 Calculated Osmolality 287 mOsm/kg (285-295) 07/12/23 10:14 Calcium 9.6 mg/dL (8.5-10.5) 07/12/23 10:14 Magnesium 1.8 mg/dL (1.7-2.3) 07/12/23 10:14 Total Bilirubin 0.7 mg/dL (0.15-1.2) 07/12/23 10:14 AST 23 U/L (0-40) 07/12/23 10:14 ALT 26 U/L (0-41) 07/12/23 10:14 Alkaline Phosphatase 221 U/L (40-130) H 07/12/23 10:14 C-Reactive Protein 3.0 mg/L (0.0-4.9) 07/12/23 10:14 NT-Pro-B Natriuret Pep 1144 pg/mL (0-125) H 07/12/23 10:14 Total Protein 7.2 g/dL (6.6-8.7) 07/12/23 10:14 Albumin 4.2 g/dL (3.5-5.2) 07/12/23 10:14 Globulin 3.0 g/dL (1.3-4.6) 07/12/23 10:14 TSH 3.40 uIU/mL (0.27-4.20) 07/12/23 10:14 Ethyl Alcohol < 10 mg/dL (0-10) 07/12/23 10:14 All radiology interpretation(s) finalized by discharge Discharge Plan Discharge Patient Disposition: Placed in Observation Clinical Impression: Acute CVA (cerebrovascular accident) Coding Level of Care Code ED Transmissions Systems Operator for Tadeo Cunningham
--- NOTE | 2023-07-12 10:55 | CT_ITS ---
WS: [id number] CT ANGIOGRAM CEREBRAL AND CAROTID ARTERIES HISTORY: cva symptoms hx of old cva TECHNIQUE: CT angiogram is performed of the carotid and cerebral arteries. During arterial injection imaging is obtained from the skull vertex to the aortic arch in 1.25 mm imaging. Coronal and sagittal reformats are submitted. Additional multi planar reformats of the carotid and cerebral arteries are submitted, MIP imaging also reviewed. NASCET criteria utilized. [facility] CT [facility] [place] [facility] e at least one of these dose optimization techniques: automated exposure control; mA and/or kV adjust ment per patient size (includes targeted exams where dose is matched to clinical indication); or iter ative reconstruction. CONTRAST: Omnipaque 350; 100 mL IV. DLP: 476.13 mGy.cm COMPARISON: Noncontrast CT head 07/12/2023 Carotid Angiogram: Right carotid: Common carotid artery: Arises normally from the innominate artery. No significant plaque or stenosis. Internal carotid artery: No plaque or stenosis. External carotid artery: Patent. Left carotid: Common carotid artery: Arises from the base of the innominate. No stenosis. Internal carotid artery: No plaque or stenosis. External carotid artery: Patent. Right vertebral artery: Poorly visualized. There may be at the tiny amount of flow intermittently vis ualized. Left vertebral artery: Unremarkable. Arises normally from the subclavian artery. Subclavian arteries: RIGHT subclavian is difficult to see due to contrast injection. LEFT subclavian is intact. Upper thorax: Normal. Thyroid gland: Normal. Osseous structures: No destructive bone lesions. CEREBRAL ANGIOGRAM: Intracranial vertebral arteries: Dominant LEFT vertebral artery with good flow. Very tiny amount of e nhancement intraluminal minimally visualized in the distal vertebral artery. May be partially occlude d. Basilar artery: No significant stenosis or occlusion. No aneurysm. Intracranial Internal carotid arteries: Moderate plaque through the carotid cavernous sinuses. [place] is approaching 60 to 70%, greatest on the RIGHT. Middle cerebral arteries: Normal. Anterior cerebral arteries and ACOM: Normal. Posterior cerebral arteries and PCOM's: Posterior cerebral arteries are normal. The posterior communi cating arteries are very poorly visualized and may be hypoplastic. Dural venous sinuses are normally enhancing. Mastoid air cells: Normal. Paranasal sinuses: Normal. Calvarium: Normal. IMPRESSION: 1. No significant cervical carotid atherosclerosis. Mild plaque with no stenosis. 2. Moderate calcified plaque in the intracranial carotid arteries. Through the cavernous sinuses manda nosis estimated at 60 to 70%. Greatest on the RIGHT. 3. No thrombus or occlusion within the ho-chunk of [place]. 4. Very small caliber RIGHT vertebral artery. There may be a tiny amount of enhancement throughout t he vertebral artery. Similar findings were identified on 07/23/2021.
--- NOTE | 2023-07-12 10:59 | P.CONIM_ITS ---
Providers/Reason For Consult 2 Consulting Physician/Specialty*: Kulwinder Camejo MD neurology and epilepsy Reason for Consult*: Code stroke 07/12/2023 emergency department room #5 Primary Care Provider: Brice Sanderson MD History of Present Illness History of Present Illness Trung Mota is a 67 year old male with a history of remote stroke in the past with no residual deficits, heart disease with history of myocardial infarction approximately 1 year ago and stent placement x 1 approximately 1 to 2 years ago. The patient also has a history of type 2 diabetes mellitus treated with metformin. According to the patient, he was talking with his around 9:30 AM on 07/12/2023 and was witnessed to slump over in the chair leaning to the left with decreased level consciousness for several minutes. Upon regaining consciousness the patient was observed to have left-sided weakness and slurred speech and therefore the patient was brought to [facility] emergency room. Stat noncontrast head CT was obtained and reported to be negative. NIH score = 2 secondary to questionable right lower facial weakness and dysarthria/slurred speech. Glucose Accu-Chek 132. according to the patient he has history of intermittent chest pain but denied any chest pain or palpitations or warning prior to the clinical event that occurred on 07/12/2023. Drug allergies: A pain medication that resulted in vomiting (type of medication not indicated) Current home medications: Isosorbide mononitrate ER 30 mg p.o. daily Metoprolol 25 mg p.o. twice daily Plavix 75 mg p.o. every morning with food Lipitor 40 mg p.o. q. evening Metformin 1000 mg p.o. daily Lisinopril 40 mg p.o. daily Vitamin D3 25 mcg p.o. daily Past medical history: Remote cerebral infarction without residual deficits Coronary atherosclerotic heart disease status post cardiac stent placement x 1 approximately 1 to 2 years ago Myocardial infarction Type 2 diabetes mellitus Habits: None Family history: Negative for strokes, aneurysms or brain tumors Review of Systems 2 General: Reports: 10 or more systems reviewed and unremarkable except in HPI and below Medications/Allergies Home Medications Medication Instructions Recorded Confirmed Last Taken Type diabetic supplies, miscellan. #1 ea 07/25/21 03/17/23 Unknown Rx SOLE SUPPORT - 1 PAIR #1 ea 02/08/22 03/17/23 Unknown Rx Diabetic Shoes with 3 pairs of #1 ea 05/10/22 03/17/23 Unknown Rx inserts aspirin 81 mg tablet,delayed 81 mg PO DAILY 30 days #30 tabs 07/09/22 03/17/23 06/16/22 Rx release atorvastatin 40 mg tablet 40 mg PO BEDTIME #90 tabs 07/26/22 03/17/23 Unknown Rx clopidogrel 75 mg tablet 75 mg PO DAILY #90 tabs 07/26/22 03/17/23 Unknown Rx isosorbide mononitrate 30 mg 30 mg PO DAILY #90 tabs 07/26/22 03/17/23 Unknown Rx tablet,extended release 24 hr lisinopril 40 mg tablet 40 mg PO DAILY #90 tabs 07/26/22 03/17/23 Unknown Rx metformin 500 mg tablet 1,000 mg PO DAILY 09/06/22 03/17/23 Unknown History metoprolol tartrate 25 mg tablet 25 mg PO BID #180 tabs 01/17/23 03/17/23 Unknown Rx furosemide 40 mg tablet See Rx Instructions .Route 02/07/23 03/17/23 Unknown Rx .COMPLEX #90 tabs Allergies Allergy/AdvReac Type Severity Reaction Status Date / Time PAIN MEDICATIONS Allergy ADR-Vomitin Uncoded 03/17/23 11:31 g PFSH Acute 2 PFSH: Medical History Clostridium difficile enterocolitis Aspiration pneumonitis Transaminitis Congestive heart failure Coronary stent thrombosis Hypoxia CVA (cerebral vascular accident) At 18 Dyspnea on exertion Hypertension Surgical History Stented coronary artery History of percutaneous coronary intervention Social History Smoking and tobacco/nicotine status: never used tobacco/nicotine Alcohol intake: former Substance/Drug Use: never Lives independently: Yes Household members: spouse Marital status: Vitals/I&O/Wt Last Vital Signs Temp 97.4 F L 07/12/23 10:45 Pulse 62 07/12/23 10:45 BP 143/85 07/12/23 10:45 Pulse Ox 91 07/12/23 10:45 O2 Del Method Room Air 07/12/23 10:45 Weight last 48 hrs Weight 210 lb Physical Exam 2 Narrative: NIH score = 2 secondary to questionable right lower facial weakness and dysarthria/slurred speech Blood pressure 153/96 heart rate 61 The patient is alert and oriented x 3. Speech dysarthric but understandable. Patient follows commands and answer all questions correctly. Pupils 4 mm round reactive to light and accommodation. Extraocular movements intact. Visual andrews appear to be full via confrontation. There were no nystagmus. Cranial nerves II through XII revealed questionable right lower facial weakness other cranial nerves were intact. Motor testing 5/5 bilaterally. There was no drift. There was no ataxia. Throat clear. Lungs clear. Heart regular rhythm and rate. Extremities were negative for cyanosis. Data 07/12/23 10:14 07/12/23 10:14 A&P Assessment and plan (1) Acute CVA (cerebrovascular accident): Impression: 1. Acute TIA versus CVA manifested as altered awareness/loss of consciousness with postevent right lower facial weakness and dysarthria. Note: NIH score =2. Therefore, patient was not a candidate for thrombolytics and no thrombolytics were administered 2. History of coronary atherosclerotic heart disease status post stent placement x 1 3. History of myocardial infarction 4. Type 2 diabetes mellitus 5. History of remote stroke in the past without residual deficits Plan: 1. Recommend CT angiogram of the head and neck to assess for carotid or vertebral artery stenosis 2. Recommend cardiac evaluation to assess for cardiac causes for TIA and episode of loss of consciousness/altered mental status 3. Continue Plavix 75 mg p.o. every morning with food and Lipitor 40 mg p.o. q. evening per NIH stroke protocol 4. Neurochecks per NIH stroke protocol 5. Recommend observation admission to monitor for any worsening of the patient's neurological symptoms 6. Recommend speech path evaluation for dysarthria/slurred speech 7. Consider OT and PT consults if patient displays any mental processing or gait difficulty 8. Address hypertension as needed Consult Attestations 2 Medical Necessity Statement: The patient was evaluated by neurology for code stroke emergency department room #5 on 07/12/2023 Coding Level of Care Code 66363 Diagnoses Acute CVA (cerebrovascular accident) I63.9
[2023-07-12 11:01] LABS: Glucose Point of Care 132 mg/dL (70-110)
[2023-07-12 11:02] LABS: Erythrocyte Sedimentation Rate 3 mm/hr (0-10)
[2023-07-12 11:09] LABS: INR 0.95 (0.8-1.2)
[2023-07-12 11:10] LABS: Partial Thromboplastin Time 27.8 SECONDS (23.9-36.7)
[2023-07-12 11:27] LABS: Alanine Aminotransferase 26 U/L (0-41); Albumin Level 4.2 g/dL (3.5-5.2); Alkaline Phosphatase 221 U/L (40-130); Anion Gap 19.5 (5-19); Aspartate Amino Transferase 23 U/L (0-40); Blood Urea Nitrogen 15 mg/dL (8-23); Calcium 9.6 mg/dL (8.5-10.5); Carbon Dioxide 20 mmol/L (22-29); Chloride 102 mmol/L (98-107); Creatinine Clr Calc Pharmacy 89.4684; Glomerular Filtration Rate 83.9 mL/min (90-130); Glucose 137 mg/dL (65-115); Magnesium 1.8 mg/dL (1.7-2.3); NT Pro B Type Natriuretic Pept 1144 pg/mL (0-125); Osmolality Calculated 287 mOsm/kg (285-295); Potassium 4.5 mmol/L (3.5-5.1); Sodium 137 mmol/L (136-145); Total Bilirubin 0.7 mg/dL (0.15-1.2); Total Protein 7.2 g/dL (6.6-8.7)
[2023-07-12 11:31] LABS: Alcohol Level < 10 mg/dL (0-10)
[2023-07-12] MEDS: ondansetron 2 mg/ML SDV 2 mL 4 MG IVP (11:34)
--- NOTE | 2023-07-12 15:55 | P.HP_ITS ---
Providers/Chief Complaint 2 Admitting Physician: Kristina Ferrera MD Primary Care Provider: Brice Sanderson MD Chief Complaint: Stroke alert History of Present Illness Trung Mota is a 67 year old male with history of previous CVA, coronary disease, does not smoke or drink alcohol presented with chief complaint of left- sided weakness and slurred speech, patient was talking with his around 9:30 AM when all of a sudden he started experiencing slurred speech with confusion and he was slumping over. Symptoms persist more than 10 minutes, he was evaluated by the neurologist in the ER, code stroke was called he was not a TNKase candidate NIH 2 By the time I saw patient he was hemodynamically stable, NIH 0 GCS 15 Family at the bedside CT head and neck showed intracranial atherosclerotic disease 60 to 70% He is already on aspirin and Plavix along statins Will request TSH, B12, echo with bubble study Patient was wanting to go home on same day however agreed to stay overnight Review of Systems 2 Eyes: Denies: change in vision ENMT: Denies: throat pain Card: Denies: chest pain Resp: Denies: dyspnea GI: Denies: abdominal pain Medications/Allergies Home Medications Medication Instructions Recorded Confirmed Last Taken Type diabetic supplies, miscellan. #1 ea 07/25/21 07/12/23 Unknown Rx SOLE SUPPORT - 1 PAIR #1 ea 02/08/22 07/12/23 Unknown Rx Diabetic Shoes with 3 pairs of #1 ea 05/10/22 07/12/23 Unknown Rx inserts aspirin 81 mg tablet,delayed 81 mg PO DAILY 30 days #30 tabs 07/09/22 07/12/23 07/12/23 Rx release atorvastatin 40 mg tablet 40 mg PO BEDTIME #90 tabs 07/26/22 07/12/23 07/11/23 Rx clopidogrel 75 mg tablet 75 mg PO DAILY #90 tabs 07/26/22 07/12/23 07/12/23 Rx isosorbide mononitrate 30 mg 30 mg PO DAILY #90 tabs 07/26/22 07/12/23 07/12/23 Rx tablet,extended release 24 hr lisinopril 40 mg tablet 40 mg PO DAILY #90 tabs 07/26/22 07/12/23 07/12/23 Rx metformin 500 mg tablet 1,000 mg PO DAILY 09/06/22 07/12/23 07/12/23 History metoprolol tartrate 25 mg tablet 25 mg PO BID #180 tabs 01/17/23 07/12/23 07/12/23 Rx cholecalciferol (vitamin D3) 25 25 mcg PO DAILY 07/12/23 07/12/23 07/12/23 History mcg (1,000 unit) tablet (Vitamin D3) Allergies Allergy/AdvReac Type Severity Reaction Status Date / Time PAIN MEDICATIONS Allergy ADR-Vomitin Uncoded 03/17/23 11:31 g PFSH Acute 2 PFSH: Medical History (Updated 07/12/23 @ 20:13 by Theron Cui MD) Flat foot [pes planus] (acquired), right foot Flat foot [pes planus] (acquired), left foot Bunion Diabetes mellitus with neuropathy Clostridium difficile enterocolitis Aspiration pneumonitis Transaminitis Congestive heart failure Coronary stent thrombosis Hypoxia CVA (cerebral vascular accident) At 18 Dyspnea on exertion Hypertension Surgical History Stented coronary artery History of percutaneous coronary intervention Social History Smoking and tobacco/nicotine status: never used tobacco/nicotine Alcohol intake: former Substance/Drug Use: never Lives independently: Yes Household members: spouse Marital status: Vitals/I&O/Wt Last Vital Signs Temp 97.4 F L 07/12/23 10:45 Pulse 60 07/12/23 15:38 Resp 20 H 07/12/23 14:30 BP 135/84 07/12/23 15:38 Pulse Ox 98 07/12/23 15:38 O2 Del Method Room Air 07/12/23 14:30 Weight last 48 hrs Weight 95.254 kg Physical Exam 2 Narrative: Awake alert GCS 15 NIH 0 Pleasant I did not appreciate any weakness Good strength of upper and lower extremities No slurring of speech Able to comprehend all questions Data 07/12/23 10:14 07/12/23 10:14 A&P Assessment and plan (1) Hypertension: (2) CAD (coronary artery disease): (3) Stented coronary artery: (4) TIA (transient ischemic attack): Plan TIA Symptoms resolved Patient lives with his at home Very active ABCD 2 score is 5 Patient considered high risk for cardiovascular event Intracranial atherosclerosis noted Already on aspirin Plavix and statins We may increase the dose of statins to 80 mg Check TSH B12 and A1c level Consistent carb diet Request PT OT ST Echo with bubble study I am anticipating he will be able to go home by tomorrow Full code Consistent carb diet Attestations 2 Medical Necessity Statement*: Anticipating discharge within 48 hours Diagnoses Hypertension I10 CAD (coronary artery disease) I25.10 Stented coronary artery Z95.5 TIA (transient ischemic attack) G45.9
--- NOTE | 2023-07-12 16:29 | USCV_ITS ---
Trung Mota Age: 67 Gender: M : 1955 Exam Date: 07/12/2023 20:13 Ordering Phys: Theron Cui MD Technologist: RADHA Exam Location: [facility] [place] Indication: TIA, LEFT hemiparesis, LEFT facial droop today. DM CAD s/p 1 cardiac stent, s/p [place] 2022. bubble study. BP: 135 / 84 HR: 63 Rhythm: Sinus Technical Quality: Adequate MEASUREMENTS (Male / Female) Normal Values 2D ECHO LV Diastolic Diameter PLAX 4.6 cm 4.2 - 5.9 / 3.9 - 5.3 cm IVS Diastolic Thickness 2.0 cm 0.6 - 1.0 / 0.6 - 0.9 cm IVS Systolic Thickness 2.2 cm LVPW Diastolic Thickness 1.7 cm 0.6 - 1.0 / 0.6 - 0.9 cm LVPW Systolic Thickness 2.3 cm LVOT Diameter 2.1 cm LV Ejection Fraction 2D Teich 67.4 % LV Ejection Fraction MOD 2C 37.9 % LV Ejection Fraction 2C AL 37.7 % LA Diameter 4.3 cm Aorta at Sinotubular Diameter 2.9 cm IVC Diameter 1.6 cm M-MODE LA Ao Ratio MM 1.2 AV Cusp Separation MM 1.5 cm DOPPLER AV Peak Velocity 116.0 cm/s LVOT Peak Velocity 58.0 cm/s AV Area Cont Eq vti 2.0 cm squared AV Area Cont Eq pk 1.7 cm squared MV Area PHT 4.0 cm squared Mitral E to A Ratio 2.0 TV Peak E Velocity 49.0 cm/s PV Peak Velocity 87.0 cm/s FINDINGS Left Ventricle The examination is technically suboptimal with the apical view being the most useful view. The overall left ventricular size is probably normal. There is akinesis of the apex and portions of the distal septum and anterior wall. The overall ejection fraction is about 40 to 45% though wall motion disturbances cannot be corroborated in views other than the apical view. The ventricular function suggest a prior LAD distribution myocardial infarction. Grade 2 diastolic dysfunction. Right Ventricle Normal right ventricular size and systolic function. Right Atrium The right atrium is normal in size. Left Atrium Mildly increased left atrial size. Mitral Valve Structurally normal mitral valve. Mild mitral valve regurgitation. Aortic Valve Structurally normal aortic valve without significant sclerosis or stenosis. There is no aortic regurgitation. Tricuspid Valve Structurally normal tricuspid valve. Trace tricuspid valve regurgitation. Pulmonic Valve Pulmonic valve not well visualized. Mild pulmonary valve regurgitation. Pericardium Normal pericardium without effusion. Aorta Normal ascending aorta dimension. IVC Inferior vena cava not visualized. CONCLUSIONS The examination is technically suboptimal with the apical view being the most useful view. The overall left ventricular size is probably normal. There is akinesis of the apex and portions of the distal septum and anterior wall. The overall ejection fraction is about 40 to 45% though wall motion disturbances cannot be corroborated in views other than the apical view. The ventricular function suggest a prior LAD distribution myocardial infarction. Grade 2 diastolic dysfunction. Mildly increased left atrial size. Structurally normal mitral valve. Mild mitral valve regurgitation. A bubble study was performed which was negative for shunt. Previous study was done 1 year ago. There is no change. Dr. Karlos Amin MD (Electronically Signed) Final Date: 13 July 2023 09:32 S
[2023-07-12 17:28] LABS: Glucose Point of Care 113 mg/dL (70-110)
[2023-07-12] MEDS: pantoprazole 40 mg SDV IVP (17:36)
[2023-07-12] MEDS: enoxaparin 40 mg/0.4 mL Syringe SUBCUT (18:02)
[2023-07-12] MEDS: metoprolol tartrate 25 mg Tablet PO (18:02)
[2023-07-12 19:25] LABS: Add Urine Microscopic? NO; Charge for UA Resulting for Rev
[2023-07-12 19:28] LABS: Bilirubin Urine Neg (Negative); Blood Urine Neg (Negative); Glucose Urine UA Norm (Normal); Ketones Urine Negative (Negative); Leukocyte Esterase Urine Negative (Negative); Nitrate Urine Negative (Negative); Protein Urine Neg (Negative); Specific Gravity, Urine 1.015 (1.005-1.030); Urine Appearance Clear (CLEAR); Urine Color Yellow (Yellow); Urobilinogen Urine Norm (Negative); pH Urine 5 (5-7)
[2023-07-12 19:37] LABS: Amphetamines Screen Urine Negative (Negative); Barbiturates Screen Urine Negative (Negative); Benzodiazepines Screen Urine Negative (Negative); Cocaine Screen Urine Negative (Negative); Opiate Screen Urine Negative (Negative); PCP Screen Urine Negative (Negative); THC Screen Urine Negative (Negative)
[2023-07-12 21:11] LABS: Glucose Point of Care 186 mg/dL (70-110)
[2023-07-12 21:16] LABS: Estmated Average Glucose 128; Hemoglobin A1C 6.1 % (4.0-6.0)
[2023-07-12 23:52] LABS: Vitamin B12 427 pg/mL (232-1245)
[2023-07-13] VITALS: BP 109/68; PULSE 62; RESP 17; TEMP 36.6; O2SAT 92
[2023-07-13 04:00] VITALS: BP 102/66; PULSE 61; RESP 17; TEMP 36.4; O2SAT 93
[2023-07-13 05:47] LABS: Basophils # 0.1 10^3/uL (0.0-0.1); Basophils % 0.6 %; Eosinophils # 0.5 10^3/uL (0.0-0.8); Eosinophils % 4.2 %; Hematocrit 44.5 % (37-53); Lymphocytes # 2.2 10^3/uL (0.8-4.8); Lymphocytes % 17.6 %; Mean Corpuscular HGB Conc 32.6 g/dL (30-55); Mean Corpuscular Hemoglobin 28.5 pg (27-33); Mean Corpuscular Volume 87.4 fl (82-101); Mean Platelet Volume 11.5 fL (7.4-10.4); Monocytes # 0.9 10^3/uL (0.2-0.9); Monocytes % 7.3 %; Neutrophils # 8.78 10^3/uL (1.8-7.7); Neutrophils % 69.9 %; Nucleated Red Blood Cells % 0 %; Platelet Count 222 10^3/cmm (157-399); Red Blood Count 5.09 10^6/uL (3.85-5.65); Red Cell Distribution Width 14.2 % (12.1-15.1); White Blood Count 12.53 10^3/uL (3.29-11.43)
[2023-07-13 06:08] LABS: Anion Gap 16.6 (5-19); Blood Urea Nitrogen 19 mg/dL (8-23); Calcium 9.2 mg/dL (8.5-10.5); Carbon Dioxide 24 mmol/L (22-29); Chloride 104 mmol/L (98-107); Creatinine Clr Calc Pharmacy 81.7012; Glomerular Filtration Rate 74.3 mL/min (90-130); Glucose 109 mg/dL (65-115); Magnesium 1.8 mg/dL (1.7-2.3); Osmolality Calculated 293 mOsm/kg (285-295); Potassium 4.6 mmol/L (3.5-5.1); Sodium 140 mmol/L (136-145)
[2023-07-13 06:53] LABS: Glucose Point of Care 117 mg/dL (70-110)
[2023-07-13 08:00] VITALS: BP 126/77; PULSE 62; RESP 14; TEMP 36.6; O2SAT 92
[2023-07-13] MEDS: aspirin 81 mg EC Tablet PO (08:31)
[2023-07-13] MEDS: clopidogrel 75 mg Tablet PO (08:31)
[2023-07-13] MEDS: lisinopril 20 mg Tablet 40 MG PO (08:31)
[2023-07-13] MEDS: metoprolol tartrate 25 mg Tablet PO (08:31)
[2023-07-13] MEDS: pantoprazole DR 40 mg Tablet PO (08:31)
[2023-07-13 09:01] VITALS: PULSE 66; RESP 18; O2SAT 94
[2023-07-13 11:27] LABS: Glucose Point of Care 116 mg/dL (70-110)
[2023-07-13 12:00] VITALS: BP 124/79; PULSE 69; RESP 16; TEMP 36.6; O2SAT 94
--- NOTE | 2023-07-13 12:02 | PM.DCS ---
Discharge Providers Date of Admission: 07/12/23 14:39 Date of Discharge: July 13, 2023 Attending Provider at Admission: Kristina Ferrera MD Attending Provider at Discharge: Kristina Ferrera MD Primary Care Provider: Brice Sanderson MD Diagnoses at Discharge Discharge Diagnosis (1) Hypertension: Status: Acute (2) CAD (coronary artery disease): Status: Acute (3) Stented coronary artery: Status: Acute (4) TIA (transient ischemic attack): Status: Acute Reason for Visit Reason for Visit: Stroke alert Hospital Course Hospital Course Patient with history of previous CVA coronary disease non-smoker presented to the hospital with left-sided weakness and slurred speech. NIH 2. Not a candidate for TNKase. Seen by neurology. CT head and neck complete showed intracranial atherosclerotic disease 60 to 70%. Patient on aspirin Plavix along with statins. Echo with bubble study ordered. Echo shows EF of 40 to 45% with akinesis of apex and portion of the distal septum and anterior wall. Similar to prior studies as per report. Patient feels back to baseline and will be discharged home in stable condition to follow-up with neurology as an outpatient. Unsure if his symptoms were attributed to bradycardia that was transient. He did have 2 recordings of heart rate 52. His metoprolol has been reduced to 12.5 twice daily. Event monitor will be set up. He is to follow-up with cardiology outpatient. Will give referral for vascular surgery for carotid stenosis. Physical Exam Narrative: Awake alert GCS 15 NIH 0 Pleasant Neuro exam nonfocal. Good strength of upper and lower extremities No slurring of speech Able to comprehend all questions Face is symmetrical No gross deficits noted. Discharge Data Studies Completed and Pending Completed Studies During Hospitalization Category Date Time Status CT angio headneck* [id number] Stat Cat Scan 07/12/23 10:[address] head thrombolytic [id number] Stat Cat Scan 07/12/23 10:34 Completed XR chest 1V portable [id number] Stat Exams 07/12/23 10:34 Completed CV. echo lmt wo/w bubble [id number] Routine Ultrasound 07/12/23 16:29 Completed Radiology Impressions Chest X-Ray 07/12/23 10:34 IMPRESSION: Minimal residual discoid atelectasis in the left lower lobe. Laboratory Results WBC 12.53 10^3/uL (3.29-11.43) H 07/13/23 05:16 RBC 5.09 10^6/uL (3.85-5.65) 07/13/23 05:16 Hgb 14.50 g/dL (11.27-16.99) 07/13/23 05:16 Hct 44.5 % (37-53) 07/13/23 05:16 MCV 87.4 fl (82-101) 07/13/23 05:16 MCH 28.5 pg (27-33) 07/13/23 05:16 MCHC 32.6 g/dL (30-55) 07/13/23 05:16 RDW 14.2 % (12.1-15.1) 07/13/23 05:16 Plt Count 222 10^3/cmm (157-399) 07/13/23 05:16 MPV 11.5 fL (7.4-10.4) H 07/13/23 05:16 Neut % (Auto) 69.9 % 07/13/23 05:16 Lymph % (Auto) 17.6 % 07/13/23 05:16 [place] % (Auto) 7.3 % 07/13/23 05:16 Eos % (Auto) 4.2 % 07/13/23 05:16 Baso % (Auto) 0.6 % 07/13/23 05:16 Neut # (Auto) 8.78 10^3/uL (1.8-7.7) H 07/13/23 05:16 Lymph # (Auto) 2.2 10^3/uL (0.8-4.8) 07/13/23 05:16 [place] # (Auto) 0.9 10^3/uL (0.2-0.9) 07/13/23 05:16 Eos # (Auto) 0.5 10^3/uL (0.0-0.8) 07/13/23 05:16 Baso # (Auto) 0.1 10^3/uL (0.0-0.1) 07/13/23 05:16 Nucleated RBC % (auto) 0 % 07/13/23 05:16 Nucleated RBCs # 0.0 /100WBC 07/13/23 05:16 ESR 3 mm/hr (0-10) 07/12/23 10:14 PT 13.00 SECONDS (12.1-14.9) 07/12/23 10:14 INR 0.95 (0.8-1.2) 07/12/23 10:14 APTT 27.8 SECONDS (23.9-36.7) 07/12/23 10:14 Sodium 140 mmol/L (136-145) 07/13/23 05:16 Potassium 4.6 mmol/L (3.5-5.1) 07/13/23 05:16 Chloride 104 mmol/L (98-107) 07/13/23 05:16 Carbon Dioxide 24 mmol/L (22-29) 07/13/23 05:16 Anion Gap 16.6 (5-19) 07/13/23 05:16 BUN 19 mg/dL (8-23) 07/13/23 05:16 Creatinine 1.0 mg/dL (0.7-1.2) 07/13/23 05:16 GFR Calculation 74.3 mL/min (90-130) L 07/13/23 05:16 Glucose 109 mg/dL (65-115) 07/13/23 05:16 POC Glucose 116 mg/dL (70-110) H 07/13/23 11:10 Estimat Average Glucose 128 07/12/23 10:14 Hemoglobin A1c 6.1 % (4.0-6.0) H 07/12/23 10:14 Calculated Osmolality 293 mOsm/kg (285-295) 07/13/23 05:16 Calcium 9.2 mg/dL (8.5-10.5) 07/13/23 05:16 Magnesium 1.8 mg/dL (1.7-2.3) 07/13/23 05:16 Total Bilirubin 0.7 mg/dL (0.15-1.2) 07/12/23 10:14 AST 23 U/L (0-40) 07/12/23 10:14 ALT 26 U/L (0-41) 07/12/23 10:14 Alkaline Phosphatase 221 U/L (40-130) H 07/12/23 10:14 C-Reactive Protein 3.0 mg/L (0.0-4.9) 07/12/23 10:14 NT-Pro-B Natriuret Pep 1144 pg/mL (0-125) H 07/12/23 10:14 Total Protein 7.2 g/dL (6.6-8.7) 07/12/23 10:14 Albumin 4.2 g/dL (3.5-5.2) 07/12/23 10:14 Globulin 3.0 g/dL (1.3-4.6) 07/12/23 10:14 Vitamin B12 427 pg/mL (232-1245) 07/12/23 10:14 TSH 3.40 uIU/mL (0.27-4.20) 07/12/23 10:14 Urine Color Yellow (Yellow) 07/12/23 14:40 Urine Appearance Clear (CLEAR) 07/12/23 14:40 Urine pH 5 (5-7) 07/12/23 14:40 Ur Specific [place] 1.015 (1.005-1.030) 07/12/23 14:40 Urine Protein Neg (Negative) 07/12/23 14:40 Urine Glucose (UA) Norm (Normal) 07/12/23 14:40 Urine Ketones Negative (Negative) 07/12/23 14:40 Urine Blood Neg (Negative) 07/12/23 14:40 Urine Nitrate Negative (Negative) 07/12/23 14:40 Urine Bilirubin Neg (Negative) 07/12/23 14:40 Urine Urobilinogen Norm mg/dL (Negative) 07/12/23 14:40 Ur Leukocyte Esterase Negative (Negative) 07/12/23 14:40 Urine Opiates Screen Negative ng/mL (Negative) 07/12/23 14:40 Ur Barbiturates Screen Negative ng/mL (Negative) 07/12/23 14:40 Ur Phencyclidine Scrn Negative ng/mL (Negative) 07/12/23 14:40 Ur Amphetamines Screen Negative ng/mL (Negative) 07/12/23 14:40 U Benzodiazepines Scrn Negative ng/mL (Negative) 07/12/23 14:40 Urine Cocaine Screen Negative ng/mL (Negative) 07/12/23 14:40 U Marijuana (THC) Screen Negative ng/mL (Negative) 07/12/23 14:40 Ethyl Alcohol < 10 mg/dL (0-10) 07/12/23 10:14 Vitals Last Vital Signs Temp 97.8 F 07/13/23 08:00 Pulse 66 07/13/23 09:01 Resp 18 03/14/24 09:01 BP 126/77 07/13/23 08:00 Pulse Ox 94 07/13/23 09:01 O2 Del Method Room Air 07/13/23 09:01 Discharge Plan Discharge Patient Disposition: Home Condition: Stable Prescriptions: Continued metformin 500 mg tablet 1,000 mg PO DAILY (DME) SOLE SUPPORT - 1 PAIR See Rx Instructions .Route .MEDSUPPLY Qty: 1 0RF Rx Instructions: As directed (DME) Diabetic Shoes with 3 pairs of inserts See Rx Instructions .ROUTE .MEDSUPPLY Qty: 1 0RF Rx Instructions: As directed HOME atorvastatin 40 mg tablet 40 mg PO BEDTIME Qty: 90 3RF clopidogrel 75 mg tablet 75 mg PO DAILY Qty: 90 3RF isosorbide mononitrate 30 mg tablet extended release 24 hr 30 mg PO DAILY Qty: 90 3RF lisinopril 40 mg tablet 40 mg PO DAILY Qty: 90 3RF (DME) diabetic supplies, miscellan. Misc See Rx Instructions .Route Qty: 1 0RF Rx Instructions: As directed aspirin 81 mg Tablet,Delayed Release (Dr/Ec) 81 mg PO DAILY 30 Days Qty: 30 0RF Vitamin D3 25 mcg (1,000 unit) Tablet 25 mcg PO DAILY Changed metoprolol tartrate 25 mg tablet 12.5 mg PO BID Qty: 180 3RF Discharge Orders: Discharge Order (Routine); Ordered 07/13/23 Ordered By: Kristina Ferrera Other Ambulatory Orders: MCT/Event Monitor 21 Days (Routine) Timeframe: 1 Day Facility: [facility] - Location: Radiology Ordered By: Kristina Ferrera Referrals: Karlos Amin MD [Physician] - 08/14/23 1:00 pm Brice Sanderson MD [Primary Care Provider] - Dallas Leslie MD [Physician] - Discharge Diet: Cardiac and Diabetic Discharge Activity: Resume usual activity Patient Instructions: Opioid Safety Activity Restrictions/Additional Instructions: APPOINTMENT FOR HEART MONITOR ON JULY 19 AT 3:00 Discharge Attestations Time Spent in Discharge Care*: less than 30 min Quality Metrics Clinical Quality Measures [ No reported AMI, CVA or VTE this stay] Coding Level of Care Code Acute Code for Chg Fwd Diagnoses Hypertension I10 CAD (coronary artery disease) I25.10 Stented coronary artery Z95.5 TIA (transient ischemic attack) G45.9
--- NOTE | 2023-07-13 13:35 | PC.OT ---
OT EVALUATION ORDERS RECEIVED. PATIENT DEMONSTRATES NO DEFICITS THAT WOULD REQUIRE FURTHER SKILLED OT.
== END 2023-07-13 14:20 | disposition home or self-care (01) ==
LOC: ER 10:59 → MEDSURG 14:40
PROVIDERS: Internal Medicine; Admitting Provider Internal Medicine; Emergency Provider Emergency Medicine; PCP Family Medicine; Visit Provider Internal Medicine
DX: G45.9 Transient cerebral ischemic attack, unspecified (principal); R29.702 NIHSS score 2; I10 Essential (primary) hypertension; I25.10 Atherosclerotic heart disease of native coronary artery without angina pectoris; Z95.5 Presence of coronary angioplasty implant and graft; I25.2 Old myocardial infarction; E11.9 Type 2 diabetes mellitus without complications; Z79.84 Long term (current) use of oral hypoglycemic drugs; I69.90 Unspecified sequelae of unspecified cerebrovascular disease
CPT/HCPCS: 36415; 36416; 70450; 70496; 70498; 71045; 80048; 80053; 80306; 80307; 81003; 82607; 82962; 83036; 83735; 83880; 84443; 85025; 85610; 85651; 85730; 86140; 92507; 92523; 92610; 93005; 96372; 96374; 96375; 97161; 99285; C8924; C9113; G0378; J1650; J2405; Q9967

== ENCOUNTER → 2023-08-14 12:57 | Outpatient (BNVA) | payer MEDICARE, MEDICAID, SELFPAY | PROVIDERS: PCP Family Medicine; Visit Provider Nurse Practitioner Family | DX: I25.10 Atherosclerotic heart disease of native coronary artery without angina pectoris (principal); I10 Essential (primary) hypertension; Z86.73 Personal history of transient ischemic attack (TIA), and cerebral infarction without residual deficits | CPT/HCPCS: 99213 ==

== ENCOUNTER → 2023-09-11 07:54 | Outpatient (BNVA) | payer MEDICARE, MEDICAID, SELFPAY | PROVIDERS: PCP Family Medicine; Visit Provider Psychiatry & Neurology Neurology | DX: I69.392 Facial weakness following cerebral infarction (principal); Z95.5 Presence of coronary angioplasty implant and graft; I25.10 Atherosclerotic heart disease of native coronary artery without angina pectoris; I65.29 Occlusion and stenosis of unspecified carotid artery; I11.0 Hypertensive heart disease with heart failure; I50.9 Heart failure, unspecified | CPT/HCPCS: 99212 ==

== ENCOUNTER 2023-10-16 11:28 | Outpatient (CLI) | payer MEDICARE, SELFPAY ==
--- NOTE | 2023-10-16 12:00 | CT_ITS ---
WS: [id number] CTA NECK TECHNIQUE: Contrast enhanced CTA of the neck with coronal and sagittal reformatted images and maximum intensity projection (MIP) images. NASCET criteria utilized. CLINICAL INFORMATION: I63.9 - Cerebral infarction, unspecified COMPARISON: CTA 07/12/2023 DLP: 299.[address] scans at [facility] use at least one of these dose optimization techniques: automated e xposure control; mA and/or kV adjustment per patient size (includes targeted exams where dose is matc hed to clinical indication); or iterative reconstruction. FINDINGS: RIGHT: RIGHT common carotid artery is patent. No significant RIGHT ICA stenosis. RIGHT ICA is patent to the skull base. Mild cavernous carotid calcification. LEFT: LEFT common carotid artery is patent. No significant LEFT ICA stenosis. Mild atheromatous plaqu e LEFT carotid bulb. LEFT ICA is patent to the skull base. Mild cavernous carotid calcification. LEFT dominant vertebral artery with mild calcification of the origin. Tiny RIGHT vertebral artery wit h no significant flow. This reconstitutes distally with a tiny amount of flow intracranially. Proxima l basilar artery is patent. Lung apices are well aerated. Mastoid air cells are well aerated. Moderate spondylitic changes cervic al spine with disc space narrowing worse at C5-6. Proximal subclavian arteries are patent. Bovine arc h. CT/CT angio neck [id number] IMPRESSION: 1. No significant ICA stenosis bilaterally. Both ICAs are patent to the skull base. 2. Mild calcified atheromatous plaque both carotid bulbs similar to previous. 3. Mild cavernous carotid calcification. 4. LEFT dominant vertebral artery. Tiny RIGHT vertebral artery is unchanged co mpared to previous.
[2023-10-16] MEDS: iohexol 350 mg/mL 500 mL Btl (per mL) IV (12:44)
== END 2023-10-16 11:29 | disposition home or self-care (01) ==
LOC: RAD 11:29
PROVIDERS: PCP Family Medicine; Visit Provider Psychiatry & Neurology Neurology
DX: I63.9 Cerebral infarction, unspecified (principal); T82.867A Thrombosis due to cardiac prosthetic devices, implants and grafts, initial encounter; Z95.5 Presence of coronary angioplasty implant and graft; I10 Essential (primary) hypertension; I25.10 Atherosclerotic heart disease of native coronary artery without angina pectoris; M47.892 Other spondylosis, cervical region; M48.02 Spinal stenosis, cervical region
CPT/HCPCS: 70498; Q9967

== ENCOUNTER → 2023-10-19 11:41 | Outpatient (BNVA) | payer MEDICARE, SELFPAY | PROVIDERS: PCP Family Medicine; Visit Provider Internal Medicine Cardiovascular Disease | DX: I10 Essential (primary) hypertension (principal); I25.10 Atherosclerotic heart disease of native coronary artery without angina pectoris; Z95.5 Presence of coronary angioplasty implant and graft; I65.29 Occlusion and stenosis of unspecified carotid artery; Z86.73 Personal history of transient ischemic attack (TIA), and cerebral infarction without residual deficits | CPT/HCPCS: 99213 ==

== ENCOUNTER → 2024-05-16 16:12 | Outpatient (BNVA) | payer MEDICARE, SELFPAY | PROVIDERS: PCP Family Medicine; Visit Provider Internal Medicine Cardiovascular Disease | DX: I25.10 Atherosclerotic heart disease of native coronary artery without angina pectoris (principal); E78.5 Hyperlipidemia, unspecified; I10 Essential (primary) hypertension | CPT/HCPCS: 99213 ==

== ENCOUNTER 2024-09-17 09:03 | Outpatient (CLI) | payer MEDICARE, SELFPAY ==
[2024-09-17 11:43] LABS: Anion Gap 18.5 (5-19); Blood Urea Nitrogen 12 mg/dL (8-23); Calcium 9.5 mg/dL (8.5-10.5); Carbon Dioxide 19 mmol/L (22-29); Chloride 108 mmol/L (98-107); Glomerular Filtration Rate 95.8 mL/min (90-130); Glucose 98 mg/dL (65-115); Osmolality Calculated 292 mOsm/kg (285-295); Potassium 4.5 mmol/L (3.5-5.1); Sodium 141 mmol/L (136-145)
== END 2024-09-17 09:04 | disposition home or self-care (01) ==
PROVIDERS: PCP Family Medicine; Visit Provider Nurse Practitioner Family
DX: I10 Essential (primary) hypertension (principal); I25.10 Atherosclerotic heart disease of native coronary artery without angina pectoris
CPT/HCPCS: 36415; 80048

== ENCOUNTER 2024-11-22 18:11 | Emergency (ER) | payer MEDICARE, SELFPAY ==
--- NOTE | 2024-11-22 18:17 | ECG_ITS ---
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1955 Requested By: Hillary Strickland Order Number: [id number] Reading MD: Measurements Intervals [place] Rate: 67 P: 42 TN: 176 QRS: -62 QRSD: 111 T: 107 QT: 405 QTc: 428 Interpretive Statements SINUS RHYTHM WITH OCCASIONAL SUPRAVENTRICULAR PREMATURE COMPLEXES PATTERN CONSISTENT WITH PULMONARY DISEASE INCOMPLETE RIGHT BUNDLE BRANCH BLOCK [90+ ms QRS DURATION, TERMINAL R IN V1/V2, 40+ ms S IN I/aVL/V4/V5/V6] LEFT ANTERIOR FASCICULAR BLOCK [QRS AXIS <= -45, QR IN I, RS IN II] MINIMAL VOLTAGE CRITERIA FOR LVH, CONSIDER NORMAL VARIANT [MEETS CRITERIA IN ONE OF: R(aVL), S(V1), R(V5), R(V5/V6)+S(V1)] SEPTAL MYOCARDIAL INFARCTION , OF INDETERMINATE AGE [40+ ms Q WAVE IN V1/V2] [email or web address]
--- NOTE | 2024-11-22 18:17 | CTR_ITS ---
PROCEDURE INFORMATION: Exam: CT Head Without Contrast Exam date and time: 11/22/2024 6:20 PM Age: 69 years old Clinical indication: Stroke-like symptoms; Dizziness/giddiness and speech disturbance; Additional info: Symptoms of acute stroke TECHNIQUE: Imaging protocol: Computed tomography of the head without contrast. Radiation optimization: All CT scans at this facility use at least one of these dose optimization techniques: automated exposure control; mA and/or kV adjustment per patient size (includes targeted exams where dose is matched to clinical indication); or iterative reconstruction. Other technique: STROKE PROTOCOL was implemented. COMPARISON: 1. CT angio headneck* [id number] 07/12/2023 12:[address] head thrombolytic [id number] 07/12/2023 10:34 AM RADIATION DOSE METRICS: Total DLP (mGy-cm): 1097.99 FINDINGS: Brain: No acute infarct. No hemorrhage. Stable mild involutional changes of the brain. No midline shift. Cerebral ventricles: Stable ventricular size. No ventriculomegaly. Paranasal sinuses: Visualized paranasal sinuses are clear. Mastoid air cells: Mastoid air cells are well-aerated. Orbital cavities: Visualized portions of the orbits are unremarkable. Bones: No acute osseous abnormality. Soft tissues: Soft tissues are unremarkable as visualized. CT/CT head thrombolytic [id number] IMPRESSION: No acute intracranial abnormality. ASSESSMENT: ASPECTS ([place] Stroke Program Early CT Score) is 10.
--- OUTSIDE RECORDS SUMMARY | 2024-11-22 18:26 | XMS_ITS | Data Portability ---
Author Organization [facility] Jameson Crowley [facility] Address [address] [address] Care Team Providers Care Computer Typesetter Keyliner Name Role Phone ARIANA SANDERSON Primary Care Provider Assessment Encounter Date Assessment Date Assessment LastModified by Organization Details LastModified Time 05/09/2024 05/09/2024 alk phos is trending down Not available 05/09/2024 09:51:09 Plan of Treatment Reminders Order Date Submit Date Provider Last Modified By Organization Details Last Modified Time Details Appointments None recorded. Lab hemoglobin A1C/hemoglo bin total, QN, blood 2024 025 [place] [facility], [address], [address], [place], [address], 11:20:04 CMP, serum or plasma 2024 025 [facility], [address] [facility], [address], [place], [address], 5 11:31:05 lipid panel, blood 2024 025 [facility], [address], [address], [place], [address], 5 11:31:08 microalbumi n/creatinin e, mass ratio, urine 2024 025 [facility], [address], [address], [place], [address], 5 09:26:23 CBC 2024 025 [facility], [address], [address], [place], [address], 11:05:34 PSA, serum or plasma 2024 025 [place] [employer], [address] [facility] [address], [address], [place], [address], 5 09:26:24 hemoglobin A1C/hemoglo bin total, QN, blood 2024 025 [facility], [address], [place], [address], 09:16:00 CMP, serum or plasma 2024 025 [facility], [address], [place], [address], 09:44:54 Referral None recorded. Procedures None recorded. Surgeries None recorded. Imaging None recorded. Medication Orders prednisone 10 mg tablet 2023 025 [place] [id number], [address], [address], [place], [address], 09:24:58 Patient TargetsNo targets recorded. Patient Instructions Encounter Date Encounter Id Patient Instructions Last Modified By Organization Details Last Modified Time 03/30/2024 [id number] Follow up for worsening [email or web address] Not available 03/31/2024 06:47:00 Reason for Referral None Reported. Results Created Date Observation Date Name Description Value Unit Range Abnormal Flag Note LastModifiedBy Organization Detail LastModifiedTime 05/07/19 25 05/07/2024 HBA1C hemaglobin A1C 6.1 4.2-6. 5 Not Available [facility] [address], [place], [address], 05/07/2024 09:16:00 05/07/19 25 05/07/2024 CMP (MALE ) glucose 119.0 mg/dL 60.0-9 9.0 high Not Available [facility] [address] [facility] [address], [place], [address], 05/07/2024 09:44:54 05/07/19 25 05/07/2024 CMP (MALE ) BUN (blood urea nitrogen) 13.0 mg/dL 10.0-2 6.0 Not Available [facility] [address] [facility] [address], [place], [address], 05/07/2024 09:44:54 05/07/19 25 05/07/2024 CMP (MALE ) creatinine (serum) 0.9 mg/dL 0.4-1. 5 Not Available [facility] [address] [facility], [place], [address], 05/07/2024 09:44:54 05/07/19 25 05/07/2024 CMP (MALE ) BUN/creatini ne ratio 14.44 ratio Not Available [facility] [address] [facility], [place], [address], 05/07/2024 09:44:54 05/07/19 25 05/07/2024 CMP (MALE ) eGFR calculated 88.9 Not Available [facility] [address], [place], [address], 05/07/2024 09:44:54 05/07/19 25 05/07/2024 CMP (MALE ) total protein 7.3 g/dL 6.0-8. 5 Not Available [facility] [address] [facility] [facility] [address], [place], [address], 05/07/2024 09:44:54 05/07/19 25 05/07/2024 CMP (MALE ) total bilirubin 1.2 mg/dL 0.2-1. 3 Not Available [facility] [address] [facility], [place], [address], 05/07/2024 09:44:54 05/07/19 25 05/07/2024 CMP (MALE ) albumin 4.4 g/dL 3.5-5. 5 Not Available [facility] [address] [facility] [address], [place], [address], 05/07/2024 09:44:54 05/07/1905/07/2024 CMP (MALE ) globulin 2.9 calc Not Available [facility] [address] [facility], [place], [address], 05/07/2024 09:44:54 05/07/19 25 05/07/2024 CMP (MALE ) AST (SGOT) 27.0 U/L 0.0-46 .0 Not Available [facility] [address] [facility] [address], [place], [address], 05/07/2024 09:44:54 05/07/19 25 05/07/2024 CMP (MALE ) altv (SGPT) 26.0 U/L 13.0-6 9.0 normal Not Available [facility] [address] [facility] [address], [place], [address], 05/07/2024 09:44:54 05/07/19 25 05/07/2024 CMP (MALE ) A/G ratio 1.5 ratio Not Available [facility] [address] [facility] [address], [place], [address], 05/07/2024 09:44:54 05/07/19 25 05/07/2024 CMP (MALE ) ALP phos 195.0 U/L 30.0-1 40.0 abnormal Not Available [facility] [address] [facility] [address], [place], [address], 05/07/2024 09:44:54 05/07/1905/07/2024 CMP (MALE ) calcium 9.4 mg/dL 8.4-10 .5 Not Available [facility] [address] [facility] [address], [place], [address], 05/07/2024 09:44:54 05/07/1905/07/2024 CMP (MALE ) sodium 138.0 mmol/ L 136.0- 145.0 Not Available [facility] [address] [facility] [address], [place], [address], 05/07/2024 09:44:54 05/07/19 25 05/07/2024 CMP (MALE ) potassium 4.3 mmol/ L 3.5-5. 1 Not Available [facility] [address] [facility] [address], [place], [address], 05/07/2024 09:44:54 05/07/1905/07/2024 CMP (MALE ) chloride 103.0 mmol/ L 98.0-1 10.0 normal Not Available [facility] [address] [facility] [address], [place], [address], 05/07/2024 09:44:54 05/07/1905/07/2024 CMP (MALE ) C02 27.0 mmol/ L 22.0-3 1.0 Not Available [facility] [address] [facility] [address], [place], [address], 05/07/2024 09:44:54 05/07/1905/07/2024 CMP (MALE ) anion gap 8.0 calc Not Available [facility] [address] [facility] [address], [place], [address], 05/07/2024 09:44:54 05/07/1905/07/2024 CMP (MALE ) osmolality 286.3 calc Not Available [facility] [address] [facility] [address], [place], [address], 05/07/2024 09:44:54 11/07/1911/06/2024 CBC WBC 11.4 x10 4.5-10 .5 high Not Available [facility] [address] [facility] [address], [place], [address], 11/06/2024 11:05:34 11/07/1911/06/2024 CBC RBC 5.49 x10 4.30-5 .90 Not Available [facility] [address] [facility] [facility] [address], [place], [address], 11/06/2024 11:05:34 11/07/1911/06/2024 CBC HGB 15.5 g/dL 13.5-1 8.0 Not Available [facility] [address] [facility] [address], [place], [address], 11/06/2024 11:05:34 11/07/1911/06/2024 CBC HCT 48.7 % 35.0-6 0.0 Not Available [facility] [address] [facility] [address], [place], [address], 11/06/2024 11:05:34 11/07/1911/06/2024 CBC MCV 88.7 fL 80.0-9 9.9 Not Available [facility] [address] [facility] [address], [place], [address], 11/06/2024 11:05:34 11/07/1911/06/2024 CBC MCH 28.3 pg 27.0-3 2.0 Not Available [facility] [address] [facility] [address], [place], [address], 11/06/2024 11:05:34 11/07/19 25 11/06/2024 CBC MCHC 31.9 g/dL 32.0-3 6.0 low Not Available [facility] [address] [facility] [address], [place], [address], 11/06/2024 11:05:34 11/07/19 25 11/06/2024 CBC RDW 17.3 % 11.5-1 4.5 high Not Available [facility] [address] [facility] [address], [place], [address], 11/06/2024 11:05:34 11/07/1911/06/2024 CBC plt 228.9 x10 150.0- 451.0 Not Available [facility] [address] [facility] [address], [place], [address], 11/06/2024 11:05:34 11/07/19 25 11/06/2024 CBC lymphocytes % 18.7 % 20.0-5 0.0 low Not Available [facility] [address] [facility] [address], [place], [address], 11/06/2024 11:05:34 11/07/19 25 11/06/2024 CBC granulcytes % 70.5 % 30.0-7 0.0 high Not Available [facility] [address] [facility] [address] [facility], [place], [address], 11/06/2024 11:05:34 11/07/19 25 11/06/2024 CBC monocytes % 7.0 % 2.0-16 .0 Not Available [facility] [address] [facility] [address], [place], [address], 11/06/2024 11:05:34 11/07/19 25 11/06/2024 CBC granulcytes# 8.0 x10 Not Haleigh ilable [facility] [address] [facility] [address], [place], [address], 11/06/2024 11:05:34 11/07/1911/06/2024 CBC lymphocytes # 2.1 x10 Not Available [facility] [address] [facility] [address], [place], [address], 11/06/2024 11:05:34 11/07/19 25 11/06/2024 CBC monocytes # 0.8 x10 Not [facility] [address], [place], [address], 11/06/2024 11:05:34 11/07/1911/06/2024 HBA1C hemaglobin A1C 5.8 4.2-6. 5 Not Available [facility] [address] [facility] [address], [place], [address], 11/06/2024 11:20:04 11/07/19 25 11/06/2024 CMP (MALE ) glucose 115.0 mg/dL 60.0-9 9.0 high Not Available [facility] [address] [facility] [address] [facility], [place], [address], 11/06/2024 11:31:05 11/07/19 25 11/06/2024 CMP (MALE ) BUN (blood urea nitrogen) 16.0 mg/dL 10.0-2 6.0 Not Available [facility] [address] [facility] [address] [facility], [place], [address], 11/06/2024 11:31:05 11/07/19 25 11/06/2024 CMP (MALE ) creatinine (serum) 1.0 mg/dL 0.4-1. 5 Not Available [facility] [address] [facility] [address], [place], [address], 11/06/2024 11:31:05 11/07/19 25 11/06/2024 CMP (MALE ) BUN/creatini ne ratio 16.00 ratio Not Available [facility] [address] [facility] [address], [place], [address], 11/06/2024 11:31:05 11/07/1911/06/2024 CMP (MALE ) eGFR calculated 78.7 Not Available [facility] [address] [facility], [place], [address], 11/06/2024 11:31:05 11/07/19 25 11/06/2024 CMP (MALE ) total protein 7.6 g/dL 6.0-8. 5 Not Available [facility] [address] [facility], [place], [address], 11/06/2024 11:31:05 11/07/1911/06/2024 CMP (MALE ) total bilirubin 1.2 mg/dL 0.2-1. 3 Not Available [facility] [address] [facility], [place], [address], 11/06/2024 11:31:05 11/07/1911/06/2024 CMP (MALE ) albumin 4.5 g/dL 3.5-5. 5 Not Available [facility] [address] [facility] [address], [place], [address], 11/06/2024 11:31:05 11/07/1911/06/2024 CMP (MALE ) globulin 3.1 calc Not Available [facility] [address] [facility] [address], [place], [address], 11/06/2024 11:31:05 11/07/1911/06/2024 CMP (MALE ) AST (SGOT) 25.0 U/L 0.0-46 .0 Not Available [facility] [address] [facility], [place], [address], 11/06/2024 11:31:05 11/07/19 25 11/06/2024 CMP (MALE ) altv (SGPT) 18.0 U/L 13.0-6 9.0 normal Not Available [facility] [address] [facility] [address], [place], [address], 11/06/2024 11:31:05 11/07/19 25 11/06/2024 CMP (MALE ) A/G ratio 1.5 ratio Not Available [facility] [address] [facility] [address], [place], [address], 11/06/2024 11:31:11/07/1911/06/2024 CMP (MALE ) ALP phos 156.0 U/L 30.0-1 40.0 abnormal Not Available [facility] [address] [facility], [place], [address], 11/06/2024 11:31:05 11/07/1911/06/2024 CMP (MALE ) calcium 9.9 mg/dL 8.4-10 .5 Not Available [facility] [address] [facility], [place], [address], 11/06/2024 11:31:11/07/1911/06/2024 CMP (MALE ) sodium 138.0 mmol/ L 136.0- 145.0 Not Available [facility] [address] [facility], [place], [address], 11/06/2024 11:31:11/07/1911/06/2024 CMP (MALE ) potassium 5.1 mmol/ L 3.5-5. 1 Not Available [facility] [address] [facility], [place], [address], 11/06/2024 11:31:05 11/07/19 25 11/06/2024 CMP (MALE ) chloride 104.0 mmol/ L 98.0-1 10.0 normal Not Available [facility] [address] [facility], [place], [address], 11/06/2024 11:31:05 11/07/1911/06/2024 CMP (MALE ) C02 26.0 mmol/ L 22.0-3 1.0 Not Available [facility] [address] [facility], [place], [address], 11/06/2024 11:31:05 11/07/1911/06/2024 CMP (MALE ) anion gap 8.0 calc Not Available [facility] [address] [address], [place], [address], 11/06/2024 11:31:05 11/07/1911/06/2024 CMP (MALE ) osmolality 287.1 calc Not Available [facility] [address] [facility], [place], [address], 11/06/2024 11:31:11/07/1911/06/2024 LIPID PROFI LE (MALE ) cholesterol 176.0 mg/dL 0.0-20 0.0 Not Available [facility] [address] [address], [place], [address], 11/06/2024 11:31:08 11/07/1911/06/2024 LIPID PROFI LE (MALE ) trig 79.0 mg/dL 0.0-15 0.0 Not Available [facility] [address] [facility], [place], [address], 11/06/2024 11:31:08 11/07/1911/06/2024 LIPID PROFI LE (MALE ) HDL - direct 37.0 mg/dL >40.0 low Not Available [facility] [address] [facility], [place], [address], 11/06/2024 11:31:08 11/07/19 25 11/06/2024 LIPID PROFI LE (MALE ) VLDL - direct 15.8 mg/dL Not Available [facility] [address], [place], [address], 11/06/2024 11:31:08 11/07/19 25 11/06/2024 LIPID PROFI LE (MALE ) LDL - direct 123.2 mg/dL 0.0-13 0.0 Not Available [facility] [address] [facility], [place], [address], 11/06/2024 11:31:08 11/07/19 25 11/07/2024 ALBUM IN, RANDO M URINE W/CRE ATINI NE creatinine, random urine 109 mg/dL 20-320 normal Not Available [address] [address] [place], [address], 11/07/2024 09:26:23 11/07/19 25 11/07/2024 ALBUM IN, RANDO M URINE W/CRE ATINI NE albumin, urine 10.1 mg/dL see note: normal Refer ence Range : Refer ence Range Not estab lishe d Not Available [facility] [address] [place], [address], 11/07/2024 09:26:23 11/07/19 25 11/07/2024 ALBUM IN, RANDO M URINE W/CRE ATINI NE albumin/crea tinine ratio, random urine 93 mg/g_ creat <30 high The ADA defin es abnor malit ies in album in excre tion as follo ws: Album inuri a Categ ory Resul t (mg/g creat inine ) Marie l to Mildl y incre ased <30 Moder ately incre ased 30-29 9 Sever joby incre ased > OR = 300 The ADA recom mends that at least two of three speci mens colle cted withi n a 3-6 month perio d be abnor mal befor e consi rosa g a patie nt to be withi n a diagn ostic categ ory. Not Available [facility] [address] [place], [address], 11/07/2024 09:26:23 11/07/19 25 11/07/2024 PSA, TOTAL PSA, total 1.57 NG/mL < or = 4.00 normal The total PSA value from this assay syste m is stand ardiz ed again st the WHO stand aline. The test resul t will be appro ximat joby 20% lower when georgi red to the equim olar- stand ardiz ed total PSA ([place] man Coult er). Georgi rison of seria l PSA resul ts shoul d be inter prete d with this fact in mind. This test was perfo rmed using the HitMe[employer] ns chemi lumin escen t metho d. Value s obtai judy from diffe rent assay metho ds canno t be used inter oakley eably . PSA level s, regar dless of value , shoul d not be inter prete d as absol [place] evide nce of the prese nce or absen ce of disea se. Not Available [facility] [address] [place], [address], 11/07/2024 09:26:24 Result Notes None recorded. Problems Name Problem SNOMED Code Status Onset Date Resolution Date Notes Provider Name and Address Organization Details Recorded Time Gout 30680344 Completed 201604/22/2017 gout - Status is Inactive ; 04/22/20 9:09AM by Jennifer Eaton CMT, [place] on/[place]; Promoted ; acuity set as *; Not Available [facility] 3 03:07:23 Harmful pattern of use of alcohol 97272334 Completed 201604/22/2017 Alcohol Abuse - Status is Inactive ; last drink -1995; 04/22/20 9:10AM by Jennifer Eaton CMT, [place] on/[place]; Promoted ; acuity set as *; Not Available [facility] 3 03:07:24 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 3 15:42:21 Coronary artery disease due to type 2 diabetes mellitus 55148495366 927533 Active 2022 REHANA PIERCE null, [facility] 4 12:47:22 Hyperpar athyroid ism 24873648 Active 2022 REHANA PIERCE null, [facility] 5 08:20:55 [facility] hyperten [place] 94824695 Active 2023 REHANA granda, [facility] 4 12:47:44 Congesti ve heart failure 20819548 Active 2023 REHANA PIERCE null, [facility] 5 08:20:55 Angina pectoris 346497630 Active 2023 REHANA PIERCE null, [facility] 5 08:20:55 Type 2 diabetes mellitus 85899557 Active 2024 REHANA granda, [facility].L[facility]CR[facility]ael 5 08:21:25 Hyperten sive heart failure 68899294 Active 2024 REHANA granda [facility], [place] 5 08:21:38 Mixed hyperlip idemia 195967085 Active 2024 Ariana Sanderson MD [address] [place] [address], [address] , [facility], [place] 5 08:51:58 Problem Notes None recorded. Procedures Surgical History Date Name Laterality Status Provider Name and Address Organization Details Recorded Time Stent completed Laura Ramos [facility], [place] 03/30/2024 11:03:34 repair of inguinal hernia completed REHANA [facility]ERCE [facility]/30/2023 08:07:47 Imaging Results None recorded. Procedure Notes None recorded. Medical Equipment None Reported. Allergies No known drug allergies Medications Name Sig Start Date Stop Date Status Note LastModified by Organization Details LastModified Time furosemid e 40 mg tablet TAKE 1 TABLET BY MOUTH EVERY DAY 03/30 completed Not Available Not Available Not Available atorvasta tin 40 mg tablet TAKE 1 TABLET BY MOUTH EVERYDAY AT BEDTIME 08/20 completed Not Available Not Available Not Available atorvasta tin 80 mg tablet TAKE 1 TABLET BY MOUTH EVERY DAY active Not Available Not Available No t Available prednison e 10 mg tablet TAKE 2 TABS DAILY FOR 4 DAYS THEN 1 TAB DAILY FOR 4 DAYS 05/09 completed Not Available Not Available Not Available metoprolo l succinate ER 50 mg tablet,ex tended release 24 hr TAKE 1 TABLET BY MOUTH EVERY DAY 08/03 completed Not Available Not Available Not Available ondansetr on HCl 8 mg tablet TAKE 1 TABLET BY MOUTH THREE TIMES A DAY 08/03 completed Not Available Not Available Not Available isosorbid e mononitra te ER 30 mg tablet,ex tended release 24 hr TAKE 1 TABLET BY MOUTH EVERY DAY active Not Available Not Available No t Available clindamyc in HCl 150 mg capsule TAKE 3 CAPSULES BY MOUTH 3 TIMES A DAY 08/03 completed Not Available Not Available Not Available clopidogr el 75 mg tablet TAKE 1 TABLET BY MOUTH EVERY DAY active Not Available Not Available No t Available aspirin 81 mg tablet,de layed release Take 1 tablet every day by oral route. 11/09 completed Not Available Not Available Not Available vancomyci n 125 mg capsule 08/03 completed Not Available Not Available Not Available hydrocodo ne 7.5 mg-acetam inophen 325 mg tablet TAKE 1 TABLET BY MOUTH THREE TIMES DAILY, NEEDED FOR MODERATE TO SEVERE PAIN 08/03 completed Not Available Not Available Not Available pantopraz ole 40 mg tablet,de layed release daily 09/28 completed 0; Recorded 07/19/19 23 2:47PM by Rehana Pierce LPN, Historic al Summary; Not Available Not Available Not Available metoprolo l tartrate 50 mg tablet TAKE 1 TABLET BY MOUTH EVERY DAY 03/30 completed Not Available Not Available Not Available nitroglyc juliet 0.4 mg sublingua l tablet PLACE 1 TABLET SUBLINGU ALLY EVERY 5 MINUTES NEEDED FOR CHEST PAIN. 30 DAYS active Not Available Not Available No t Available lisinopri l 40 mg tablet TAKE 1 TABLET BY MOUTH EVERY DAY 09/17 completed Not Available Not Available Not Available metformin ER 500 mg tablet,ex tended release 24 hr TAKE 2 TABLETS BY MOUTH EVERY DAY active Not Available Not Available No t Available amoxicill in 875 mg-potass ium clavulana te 125 mg tablet TAKE 1 TABLET BY MOUTH 2TIMES A DAY FOR 5 DAYS 08/03 completed Not Available Not Available Not Available valsartan 160 mg tablet TAKE 1 TABLET BY MOUTH EVERY DAY active Not Available Not Available No t Available metoprolo l tartrate 25 mg tablet TAKE 1 TABLET BY MOUTH TWICE A DAY active Not Available Not Available No t Available ondansetr on HCl three times daily 03/30 completed Recorded 03/14/20 22 8:17AM by Nury Villafana, ELLY, Office Visit; Refill Quantity : 20; Tablet; Not Available Not Available Not Available Aspirin EC daily 07/19 completed 0; Recorded 05/19/19 23 10:58AM by Rehana Pierce LPN, Office Visit; Not Available Not Available Not Available furosemid e daily 03/30 completed 0; Recorded 07/19/19 23 2:47PM by Rehana Pierce LPN, Historic al Summary; Not Available Not Available Not Available lisinopri l daily 03/30 completed 0; Recorded 05/19/19 10:58AM by Rehana Pierce LPN, Office Visit; Not Available Not Available Not Available metformin daily 03/30 completed Recorded 05/19/19 10:58AM by Rehana Pierce LPN, Office Visit; Refill Quantity : 60; Tablet; Not Available Not Available Not Available [facility] Vitamin C daily active 0; Recorded 05/19/19 10:58AM by Rehana Pierce LPN, Office Visit; Not Available Not Available Not Available Potassium Chloride ER daily 03/30 completed 0; Recorded 07/19/19 2:48PM by Rehana Pierce LPN, Historic al Summary; Not Available Not Available Not Available Multivita min w/Mineral s, Iron daily 03/30 completed 0; Recorded 05/19/19 10:58AM by Rehana Pierce LPN, Office Visit; Not Available Not Available Not Available potassium chloride ER 20 mEq tablet,ex tended release TAKE 1 TABLET BY MOUTH DAILY 03/30 completed Not Available Not Available Not Available Paxlovid 300 mg (150 mg x 2)-100 mg tablets in a dose pack TAKE DIRECTED ON PACKAGE TWICE DAILY FOR 5 DAYS 03/30 completed Not Available Not Available Not Available Vitals Date Recorded Body height Body mass index (BMI) Body weight Body temperature Heart rate Oxygen saturation Oxygen saturation in Arterial blood by Pulse oximetry Systolic And Diastolic Provider Name and Address Organization Details Last Updated DateTime 5 167.64 cm 32.9 kg/m2 26480.8 4 g 98.4 [degF] 64 /min 98 % 98 % 118/80 mm[Hg] Nury Alanis [facility], LRafaelLRafaelCRafael 5 09:22:03 Date Recorded Body height Body mass index (BMI) Body weight Oxygen saturation Oxygen saturation in Arterial blood by Pulse oximetry Heart rate Respiratory rate Body temperature Systolic And Diastolic Provider Name and Address Organization Details Last Updated DateTime 5 167.64 cm 31.2 kg/m2 99300.3 3 g 98 % 98 % 56 /min 16 /min 97.4 [degF] 124/74 mm[Hg] Laura Richard [facility] 5 09:46:51 Date Recorded Body height Body mass index (BMI) Body weight Body temperature Respiratory rate Oxygen saturation Oxygen saturation in Arterial blood by Pulse oximetry Heart rate Systolic And Diastolic Provider Name and Address Organization Details Last Updated DateTime 5 167.64 cm 31 kg/m2 75997.7 4 g 96.8 [degF] 18 /min 97 % 97 % 62 /min 122/70 mm[Hg] HIEU FREDERICK [facility] 5 08:33:29 Date Recorded Body height Body mass index (BMI) Body weight Oxygen saturation Oxygen saturation in Arterial blood by Pulse oximetry Heart rate Respiratory rate Body temperature Systolic And Diastolic Provider Name and Address Organization Details Last Updated DateTime 4 167.64 cm 33 kg/m2 17291.2 8 g 96 % 96 % 63 /min 20 /min 97.5 [degF] 104/68 mm[Hg] Laura Richard [facility] 4 11:00:34 Social History Question Answer Notes LastModified by Mamba Details LastModified Time Tobacco Smoking Status Never Smoker [facility]/30/2023 08:07:33 What Was The Date Of Your Most Recent Tobacco Screening? 11/06/2024 [email or web address] Information not available 11/06/2024 Sex: Unknown Functional Status Question Answer Note LastModified by Mamba Details LastModified Time Do you use any illicit or recreational drugs? No [email or web address] Information not available 03/30/2023 Do you or have you ever used any other forms of tobacco or nicotine? No [email or web address] Information not available 03/30/2023 What is your level of alcohol consumption? None Information not available 03/30/2023 Mental Status None recorded. Family History Relationship Description Onset Age of this Age Resolved Age Notes LastModified by Organization Details LastModified Time Father Alcoholism [email or web address] Not avail able 07/20/2023 12:04:12 Mother Yonathan [email or web address] Not avail able 07/20/2023 12:04:13 Medical History No medical history recorded. Immunizations Vaccine Type Date Status Note Provider Nam e and Address Organization Details Recorded Time Tdap 8 completed [facility] 03/30/2023 08:14:43 COVID-19, mRNA, LNP-S, PF, 100 mcg/0.5mL dose or 50 mcg/0.25mL dose 2 completed REHANA PIERCE null, [facility] 03/30/2023 08:05:28 Influenza, split virus, trivalent, preservative 1 completed [facility] 03/30/2023 08:14:43 Tdap 3 completed Nury Alanis [facility] 03/30/2023 08:14:43 Influenza, high-dose, quadrivalent, PF 1 completed REHANA granda, [facility] 03/30/2023 08:05:28 Influenza, adjuvanted, quadrivalent, PF 2 completed [facility] 03/30/2023 08:05:28 COVID-19, mRNA, LNP-S, PF, 100 mcg/0.5mL dose or 50 mcg/0.25mL dose 1 completed [facility] 03/30/2023 08:05:28 COVID-19, mRNA, LNP-S, PF, 100 mcg/0.5mL dose or 50 mcg/0.25mL dose 1 completed [facility] 03/30/2023 08:05:28 COVID-19, mRNA, LNP-S, PF, 100 mcg/0.5mL dose or 50 mcg/0.25mL dose 1 completed REHANA granda, [facility] 03/30/2023 08:05:28 COVID-19, mRNA, LNP-S, bivalent, PF, 50 mcg/0.5 mL or 25mcg/0.25 mL dose 2 completed REHANA granda, [facility] 03/30/2023 08:05:28 pneumococcal polysaccharide PPV23 2 completed REHANA granda, [facility] 03/30/2023 08:05:28 Influenza, adjuvanted, quadrivalent, PF 3 completed Nury granda, [facility] 03/30/2023 08:14:43 COVID-19, mRNA, LNP-S, PF, 50 mcg/0.5 mL 3 completed Not Available [facility] 11/14/2024 08:26:40 Influenza, high-dose, trivalent, PF 4 completed Not Available [facility] 11/14/2024 08:26:40 COVID-19, mRNA, LNP-S, PF, 50 mcg/0.5 mL 4 completed Not Available [facility] 11/14/2024 08:26:40 COVID-19, mRNA, LNP-S, PF, 50 mcg/0.5 mL 5 completed Not Available [facility] 11/14/2024 08:26:39 Past Encounters Encounter ID Performer Location Encounter Start Date Encounter Closed Date Diagnosis/Indication Diagnosis SNOMED-CT Code Diagnosis ICD10 Code Diagnosis Note [id number] Ariana Sanderson MD [facility] ([facility]) [address] [place] [address] [id number] 08/03/2022 08:08:00 08/11/2022 23:28:59 Subsequent non-ST segment elevation myocardial infarction 299724502 I22.2 Hyperkalemia 90603345 E8 7.5 Acute kidney injury 1466 9001 N17.9 bmp at [facility] k+ was elevated cr. 1.6 d/c potassium. no edema no signs of chf. hold lasix. repeat bmp on monday. call if any weight gain, dyspnea, edema or orthopnea [id number] Ariana Sanderson MD [facility] ([facility]) [address] [place] [address] [id number] 5 08/10/2022 09:16:12 08/10/2022 13:43:45 Stented coronary artery 090187907 Z95.5 continue anti plt medication as discussed. Chronic sy stolic heart failure 464470078 I50.22 stable continue meds at current dose.no jvd or hepatojugu lar reflux [id number] Ariana Sanderson MD [facility] ([facility]) [address] [place] [address] [id number] 5 09/27/2022 08:08:39 09/27/2022 08:43:10 Stented coronary artery 262761424 Z95.5 continue anti plt medication as discussed. Chronic sy stolic heart failure 832467483 I50.22 Essential hypertension 87547196 I10 Hyperparathyroidism 6699 9008 E21.3 [id number] SUSANNE MILES [facility] ([facility]) [address] [place] [address] [id number] 01/14/2023 09:29:51 01/14/2023 10:23:43 Cough 91091314 R05.9 COVID-19 101201429 U07.1 [id number] Ariana Sanderson MD [facility] ([facility]) [address] [place] [address] [id number] 5 03/30/2023 08:02:19 03/30/2023 12:46:00 Vitamin D deficiency 46238903 E55.9 Hyperparathyroidism 6699 9008 E21.3 Deficiency of vitamin D3 474997674 E55.9 History of cerebrovascular accident without residual deficits 688841929 Z86.73 Hypertensive disorder 38 422431 I10 History of alcohol abuse 884346623 F10.11 Coronary a rtery disease due to type 2 diabetes mellitus 4324673535 1967219 I25.10 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 531798001 I69.954 very mild essentiall y only slight left lip droop with drooling no functional strength deficit no numbness [id number] Ariana Sanderson MD [facility] ([facility]) [address] [place] [address] [id number] 5 07/20/2023 12:17:17 07/20/2023 14:10:24 Coronary artery disease due to type 2 diabetes mellitus 2870746682 7573141 I25.10 Essential hypertension 37461594 I10 metoprolol was decreased he will track HR and bp for 5 days and call in resultsif any similar sx he will go to ER right away.will increase stati Congestive heart failure 96828388 I50.22 Angina pectoris 65198817 0 I20.9 Ischemic c ongestive cardiomyopathy 728201299 I25.5 Chronic sy stolic heart failure 985825917 I50.22 [id number] Ariana Sanderson MD [facility] ([facility]) [address] [place] [address] [id number] 5 08/21/2023 08:16:54 08/21/2023 08:56:30 Hyperparathyroidism 24992689 E21.3 recheck scheduled for 09/28 History of cerebrovascular accident without residual deficits 667409264 Z86.73 recheck ldl at f/u 09/28bp controlled will check on need for duapt. monitor results pending will request [id number] Ariana Sandesron MD [facility] ([facility]) [address] [place] [address] [id number] 09/22/2023 08:19:06 09/26/2023 09:30:00 Coronary artery disease due to type 2 diabetes mellitus 8595689831 6651387 I25.10 Essential hypertension 98008858 I10 metoprolol was decreased he will track HR and bp for 5 days and call in resultsif any similar sx he will go to ER right away.will increase stati Hyperparathyroidism 6699 9008 E21.3 recheck scheduled for 09/28 Screening for malignant neoplasm of prostate 760970528 Z12.5 [id number] Ariana Sanderson MD [facility] ([facility]) [address] [place] [address] [id number] 5 09/29/2023 08:03:26 09/29/2023 08:44:12 Alkaline phosphatase above reference range 211668848 R74.8 previous isoenzyme profile and ggt were negative.u /s unremarkab le for biliary obstructio n etc.he has been evaluated by neurologyh e has a check up with cardiology next month Coronary a rtery disease due to type 2 diabetes mellitus 6227059994 5151934 I25.10 Essential hypertension 41707556 I10 metoprolol was decreased he will track HR and bp for 5 days and call in resultsif any similar sx he will go to ER right away.will increase stati Congestive heart failure 95850896 I50.22 History of cerebrovascular accident without residual deficits 945716842 Z86.73 recheck ldl at f/u 09/28bp controlled will check on need for duapt. monitor results pending will request Hyperparathyroidism 6699 9008 E21.3 recheck scheduled for 09/28 [id number] Ariana Sanderson MD [facility] ([facility]) [address] [place] [address] 5 11/01/2023 08:14:24 11/01/2023 09:58:08 Essential hypertension 28982557 I10 metoprolol was decreased he will track HR and bp for 5 days and call in resultsif any similar sx he will go to ER right away.will increase stati Hyperparathyroidism 6699 9008 E21.3 recheck scheduled for 09/28 [id number] Ariana Sanderson MD [facility] ([facility]) [address] [place] [address] 5 11/10/2023 08:08:02 11/10/2023 13:44:15 Congestive heart failure 17451023 I50.22 History of cerebrovascular accident without residual deficits 304236643 Z86.73 Coronary a rtery disease due to type 2 diabetes mellitus 1081369069 0700233 I25.10 Essential hypertension 19960320 I10 [id number] GERMAIN EASON APRN [facility] ([facility]) [address] [place] [address] 5 03/30/2024 10:55:36 04/02/2024 12:21:00 Gout 78192088 M10.9 [id number] Ariana Sanderson MD [facility] ([facility]) [address] [place], [place] [address] 5 05/07/2024 08:49:54 05/08/2024 10:23:29 Essential hypertension 23520487 I10 Coronary a rtery disease due to type 2 diabetes mellitus 3296469073 4405122 I25.10 [id number] Ariana Sanderson MD [facility] ([facility]) [address] [place] [address] [id number] 5 05/09/2024 08:53:22 05/09/2024 11:49:28 Coronary artery disease due to type 2 diabetes mellitus 0421437506 3115699 I25.10 Essential hypertension 93141695 I10 [id number] Ariana Sanderson MD [facility] ([facility]) [address] [place] [address] [id number] 5 11/06/2024 09:36:58 11/06/2024 14:17:18 Coronary artery disease due to type 2 diabetes mellitus 8319025310 6141660 I25.10 Essential hypertension 13923889 I10 Congestive heart failure 68502623 I50.22 Type 2 jessica betes mellitus 55167270 E11.59 Hypertensi ve heart failure 53959160 I11.0 Nocturia 763893612 R35.1 [id number] Ariana Sanderson MD [facility] ([facility]) [address] [place] [address] [id number] 5 11/14/2024 08:26:21 11/18/2024 16:36:47 Coronary artery disease due to type 2 diabetes mellitus 1552047317 1066303 I25.10 History of cerebrovascular accident without residual deficits 968691320 Z86.73 Mixed hyperlipidemia 267 209451 E78.2 high risk of events.ldl doubled for an unknown reason. will have him check his pill bottles to make sure he has the atorvastat in and he is in fact taking it. he stats he is certain that he has it sitting on the bathroom counter and takes it every night. will call to go through [facility] Concerns Section Related Observation LastModified by Organization Detai ls LastModified Time None Recorded Concern Status LastModified by Organization Details LastModified Time None Recorded Advance Directives Directive None Recorded Payers Insurance Date Sequence Insurance Name Policy Number Policy Johnson Covered Member ID Johnson Member ID Guarantor Name 03/30/2024 1 [employer] (MEDICARE REPLACEMENT/ ADVANTAGE - PPO) Trung Chapa Khalifriossaranya [id number] Trung Chapa Khalifriossaranya 09/13/2024 [place] Trung Chapa Khalifriossaranya [id number] Trung Leesaranya 11/03/2024 [place] [facility] Trung Chapa Khalifriossaranya [id number] Trung Chapa Svetlana 05/03/2024 1 [employer] (MEDICARE REPLACEMENT/ ADVANTAGE - HMO) Trung Chapa Khalifrisosaranya [id number] Trung Chapa Svetlana 11/03/2024 2 [place] Trung Chapa Svetlana [id number] Trung Chapa Khalifriossaranya 04/03/2024 1 *SELF PAY* Ro filemon Chapa Svetlana 11/13/2024 1 [place] - [place]) [id number] Trung Chapa Svetlana [id number] Trung Chapa Svetlana 03/30/2024 1 [employer] (MEDICARE REPLACEMENT/ ADVANTAGE - HMO) Trung Chapa Svetlana [id number] Trung Chapa Svetlana Notes Date Note Type Note Provider Name and Address Organization Details Recorded Time 4 text/html EdemaReported by PatientROS as noted in the HPI walk in patient2 weeks ago patient has a red swollen area on his right wrist, painful. Has a history of gout. GERMAIN EASON, RN DOCUMENT IMPROVEMENT SPECIALIST [address] [place], [phone], [facility] 03/31/2024 06:47:14 5 text/html DiabetesReported by PatientHPIFor duration, patient reportschronic. For control, patient reportstreated with diet and oral medications,hemoglobin a1c has been less than 7, andhemoglobin a1c goal is less than 7. For compliance, patient reportscompliant with medicationsandcompliant with follow-up visits. For associated symptoms, patient reportsno increased thirst,no increased appetite,no increased urination,no numbness of feet, andno paresthesias.Complications and Co-morbiditiesFor chronic complications, patient reportshypertension: yesandhyperlipidemia: yes. For comorbidities, patient reportscoronary artery disease: yes. Hypertension IM/FMReported by PatientHPIFor quality, patient reportshere for check-up. For severity, patient reportsnormal (<120/<80 mmhg)(pt checks bp at home on occasion.). For onset/timing, patient reportsgradual onset. For associated symptoms, patient reportsno shortness of breath,no palpitations,no headaches, andno chest pain. HyperlipidemiaReported by PatientHPIFor duration, patient reportschronic. For complications, patient reportscoronary artery disease. For control, patient reportsusually well controlledandat goal. For adherence to treatment plan, patient reportstakes medications as prescribed.ROS as noted in the HPI Pt is here for a 6 month f/u Ariana Sanderson MD [address] [place] [address], [phone], [facility] 05/09/2024 10:03:38 5 text/html Hypertension F/UReported by PatientHPIFor medications, patient reportstaking medications as directedandchecks blood pressure at home, range:. For lifestyle, patient reportsregular exercise. For associated symptoms, patient reportsno dizziness,no lightheadedness,no chest pain, andno shortness of breath. labs not done yet. patient her for 6 month check up Ariana Sanderson MD [address] [place] [address], [phone], [facility] 11/06/2024 10:17:39 5 text/html HyperlipidemiaReported by PatientHPIFor duration, patient reportschronic. For complications, patient reportscoronary artery disease. For control, patient reportsusually well controlledandat goal. For adherence to treatment plan, patient reportstakes medications as prescribed.ROS as noted in the HPI lab f/u, labs done 11/06/24his ldl doubled this year but he reports no change in diet and that he takes his atorvastatin every night. Ariana Sanderson MD [address] [place] [address], [phone], [facility] 11/14/2024 08:58:04
[2024-11-22 18:29] LABS: Hematocrit 46.9 % (37-53); Hemoglobin 15.40 g/dL (11.27-16.99); Mean Corpuscular HGB Conc 32.8 g/dL (30-55); Mean Corpuscular Hemoglobin 27.8 pg (27-33); Mean Corpuscular Volume 84.8 fl (82-101); Nucleated Red Blood Cells % 0 %; Platelet Count 254 10^3/cmm (157-399); Red Blood Count 5.53 10^6/uL (3.85-5.65); White Blood Count 11.28 10^3/uL (3.29-11.43)
[2024-11-22 18:41] LABS: INR 0.95 (0.8-1.2); Partial Thromboplastin Time 27.5 SECONDS (23.9-36.7); Prothrombin Time 13.30 SECONDS (12.1-14.9)
--- NOTE | 2024-11-22 18:41 | W.ED.NEUROSD ---
HPI - Neuro Symptoms/Deficit General: Chief Complaint: Neuro Symptoms/Deficit Stated Complaint: poss Time Seen by Provider: 11/22/24 18:19 History of Present Illness: 69-year-old man presents the emergency room with neurologic type symptoms. says that he was in bed and could not speak briefly but by the time he is arrived here he is back to normal. He says he feels a little fatigued. He had a similar episode a while back and was diagnosed with a TIA. He is on Plavix and atorvastatin. Currently has no focal motor deficits. Related Data Home Medications ?Medication ?Instructions ?Recorded ?Confirmed metformin 500 mg tablet 1,000 mg PO DAILY 09/06/22 05/16/24 cholecalciferol (vitamin D3) 25 25 mcg PO DAILY 07/12/23 05/16/24 mcg (1,000 unit) tablet (Vitamin D3) Previous Rx's ?Medication ?Instructions ?Recorded diabetic supplies, miscellan. #1 ea 07/25/21 SOLE SUPPORT - 1 PAIR #1 ea 02/08/22 Diabetic Shoes with 3 pairs of #1 ea 05/10/22 inserts isosorbide mononitrate 30 mg 30 mg PO DAILY #90 tabs 07/27/23 tablet,extended release 24 hr atorvastatin 40 mg tablet 40 mg PO BEDTIME #90 tabs 07/31/23 clopidogrel 75 mg tablet 75 mg PO DAILY #90 tabs 06/26/24 valsartan 160 mg tablet 160 mg PO DAILY #90 tabs 08/28/24 metoprolol tartrate 25 mg tablet 25 mg PO BID #180 tabs 09/17/24 Allergies Allergy/AdvReac Type Severity Reaction Status Date / Time PAIN MEDICATIONS Allergy ADR-Vomitin Uncoded 05/16/24 16:31 g Review of Systems Narrative: Constitutional symptoms: Negative except as documented in HPI. Skin symptoms: Negative except as documented in HPI. Eye symptoms: Negative except as documented in HPI. ENMT symptoms: Negative except as documented in HPI. Respiratory symptoms: Negative except as documented in HPI. Cardiovascular symptoms: Negative except as documented in HPI. Gastrointestinal symptoms: Negative except as documented in HPI. Genitourinary symptoms: Negative except as documented in HPI. Musculoskeletal symptoms: Negative except as documented in HPI. Neurologic symptoms: Negative except as documented in HPI. Psychiatric symptoms: Negative except as documented in HPI. Endocrine symptoms: Negative except as documented in HPI. [facility] ED PFSH: Medical History (Updated 11/22/24 @ 19:55 by Hillary Osuna MD) Flat foot [pes planus] (acquired), right foot Flat foot [pes planus] (acquired), left foot Bunion Diabetes mellitus with neuropathy Clostridium difficile enterocolitis Aspiration pneumonitis Transaminitis Congestive heart failure Coronary stent thrombosis Hypoxia CVA (cerebral vascular accident) At 18 Dyspnea on exertion Hypertension Surgical History Stented coronary artery History of percutaneous coronary intervention Social History Smoking and tobacco/nicotine status: never used tobacco/nicotine Alcohol intake: former Substance/Drug Use: never Lives independently: Yes Household members: spouse Marital status: Physical Exam Narrative: EXAM NARRATIVE: General: Alert, no acute distress. Skin: Warm, dry. Head: Normocephalic, atraumatic. Neck: Supple, trachea midline. Eye: Extraocular movements are intact. Ears, nose, mouth and throat: mucosa moist. Cardiovascular: Regular, Normal peripheral perfusion. Respiratory: Lungs are clear to auscultation, respirations are non-labored, breath sounds are equal, Symmetrical chest wall expansion. Gastrointestinal: Soft, Nontender, Non distended Musculoskeletal: Normal ROM, no deformity. Neurological: Alert and oriented, No focal neurological deficit observed. Psychiatric: Cooperative, appropriate mood & affect. Course Vital Signs: Vital signs: Vital Signs Pulse Rate 63 11/22/24 20:06 Respiratory Rate 14 11/22/24 19:41 Blood Pressure 149/89 11/22/24 20:06 Pulse Oximetry 96 11/22/24 20:06 Oxygen Delivery Me thod Room Air 11/22/24 19:41 MDM - Neuro Symptoms/Deficit Medical Decision Making Medical decision making: Differential diagnosis for patient with focal neurologic deficit(s) includes but not limited to and based on the above HPI, review of systems and physical exam: ischemic stroke, hemorrhagic stroke and embolic stroke secondary to atrial fibrillation), TIA, Patiño's palsey, metabolic encephalopathy with previous stroke. Orders placed to evaluate differential diagnosis based on the above differential, HPI and physical exam CT head: No acute intracranial process. no intracranial hemorrhage, no evidence of infarct. no evidence of acute fracture.This was reviewed and interpreted by myself the ER physician. Lab Review: Laboratory results were reviewed and interpreted by myself the emergency room physician. No leukocytosis. No anemia. No renal failure. Cardiac markers negative. Urinalysis is negative for infection. I reviewed the patient's medical record. Reexamination: Patient remained stable. No increased work of breathing. No altered mental status. No focal motor deficits. Blood pressure improved spontaneously Assessment and plan: Possible TIA - Discharged home - Discussed plan with patient. Answered any questions. - Evaluation and treatment of this problem were appropriate in the emergency setting. Lab Data 11/22/24 18:17 11/22/24 18:[address] 11/22/24 18:17 IMPRESSION: No acute intracranial abnormality. ASSESSMENT: ASPECTS ([facility] Stroke Program Early CT Score) is 10. ADDENDUM: 11/22/24 215 Findings were discussed with HILLARY Donovan at 11/22/2024 6:48 PM CDT. Laboratory Results WBC 11.28 10^3/uL (3.29-11.43) 11/22/24 18:17 RBC 5.53 10^6/uL (3.85-5.65) 11/22/24 18:17 Hgb 15.40 g/dL (11.27-16.99) 11/22/24 18:17 Hct 46.9 % (37-53) 11/22/24 18:17 MCV 84.8 fl (82-101) 11/22/24 18:17 MCH 27.8 pg (27-33) 11/22/24 18:17 MCHC 32.8 g/dL (30-55) 11/22/24 18:17 RDW 15.6 % (12.1-15.1) H 11/22/24 18:17 Plt Count 254 10^3/cmm (157-399) 11/22/24 18:17 MPV 10.7 fL (7.4-10.4) H 11/22/24 18:17 Neut % (Auto) 69.4 % 11/22/24 18:17 Lymph % (Auto) 19.9 % 11/22/24 18:17 [place] % (Auto) 6.5 % 11/22/24 18:17 Eos % (Auto) 2.6 % 11/22/24 18:17 Baso % (Auto) 1.2 % 11/22/24 18:17 Neut # (Auto) 7.85 10^3/uL (1.8-7.7) H 11/22/24 18:17 Lymph # (Auto) 2.2 10^3/uL (0.8-4.8) 11/22/24 18:17 [place] # (Auto) 0.7 10^3/uL (0.2-0.9) 11/22/24 18:17 Eos # (Auto) 0.3 10^3/uL (0.0-0.8) 11/22/24 18:17 Baso # (Auto) 0.1 10^3/uL (0.0-0.1) 11/22/24 18:17 Nucleated RBC % (auto) 0 % 11/22/24 18:17 Nucleated RBCs # 0.0 /100WBC 11/22/24 18:17 PT 13.30 SECONDS (12.1-14.9) 11/22/24 18:17 INR 0.95 (0.8-1.2) 11/22/24 18:17 APTT 27.5 SECONDS (23.9-36.7) 11/22/24 18:17 Sodium 138 mmol/L (136-145) 11/22/24 18:17 Potassium 4.8 mmol/L (3.5-5.1) 11/22/24 18:17 Chloride 101 mmol/L (98-107) 11/22/24 18:17 Carbon Dioxide 23 mmol/L (22-29) 11/22/24 18:17 Anion Gap 18.8 (5-19) 11/22/24 18:17 BUN 14 mg/dL (8-23) 11/22/24 18:17 Creatinine 0.9 mg/dL (0.7-1.2) 11/22/24 18:17 GFR Calculation 83.4 mL/min (90-130) L 11/22/24 18:17 Glucose 105 mg/dL (65-115) 11/22/24 18:17 POC Glucose 127 mg/dL (70-110) H 11/22/24 18:20 Calculated Osmolality 287 mOsm/kg (285-295) 11/22/24 18:17 Calcium 9.7 mg/dL (8.5-10.5) 11/22/24 18:17 Total Bilirubin 0.6 mg/dL (0.15-1.2) 11/22/24 18:17 AST 19 U/L (0-40) 11/22/24 18:17 ALT 13 U/L (0-41) 11/22/24 18:17 Alkaline Phosphatase 169 U/L (40-130) H 11/22/24 18:17 Troponin T Baseline 17 ng/L (0-15) H 11/22/24 18:17 Total Protein 7.1 g/dL (6.6-8.7) 11/22/24 18:17 Albumin 4.5 g/dL (3.5-5.2) 11/22/24 18:17 Globulin 2.6 g/dL (1.3-4.6) 11/22/24 18:17 Urine Color Yellow (Yellow) 11/22/24 19:05 Urine Appearance Clear (CLEAR) 11/22/24 19:05 Urine pH 7.5 (5-7) 11/22/24 19:05 Ur Specific [place] 1.018 (1.005-1.030) 11/22/24 19:05 Urine Protein Trace (Negative) A 11/22/24 19:05 Urine Glucose (UA) Negative (Normal) 11/22/24 19:05 Urine Ketones Negative (Negative) 11/22/24 19:05 Urine Blood Negative (Negative) 11/22/24 19:05 Urine Nitrate Negative (Negative) 11/22/24 19:05 Urine Bilirubin Negative (Negative) 11/22/24 19:05 Urine Urobilinogen 1.0 mg/dL (Negative) 11/22/24 19:05 Ur Leukocyte Esterase Trace (Negative) A 11/22/24 19:05 Urine RBC 0-2 /hpf (0-2) 11/22/24 19:05 Urine WBC 0-5 /hpf (0-5) 11/22/24 19:05 Ur Squamous Epith Cells 0-5 /hpf (0-5) 11/22/24 19:05 Amorphous Sediment Not Reportable 11/22/24 19:05 Urine Bacteria None seen /hpf (NONE) 11/22/24 19:05 Hyaline Casts 0-4 /lpf H 11/22/24 19:05 Urine Opiates Screen Negative ng/mL (Negative) 11/22/24 19:05 Ur Barbiturates Screen Negative ng/mL (Negative) 11/22/24 19:05 Ur Phencyclidine Scrn Negative ng/mL (Negative) 11/22/24 19:05 Ur Amphetamines Screen Negative ng/mL (Negative) 11/22/24 19:05 U Benzodiazepines Scrn Negative ng/mL (Negative) 11/22/24 19:05 Urine Cocaine Screen Negative ng/mL (Negative) 11/22/24 19:05 U Marijuana (THC) Screen Negative ng/mL (Negative) 11/22/24 19:05 All radiology interpretation(s) finalized by discharge Discharge Plan Discharge Patient Disposition: Home Clinical Impression: Transient ischemic attack Condition: Stable Prescriptions: No Action metformin 500 mg tablet 1,000 mg PO DAILY (DME) SOLE SUPPORT - 1 PAIR See Rx Instructions .Route .MEDSUPPLY Qty: 1 0RF Rx Instructions: As directed (DME) Diabetic Shoes with 3 pairs of inserts See Rx Instructions .ROUTE .MEDSUPPLY Qty: 1 0RF Rx Instructions: As directed HOME isosorbide mononitrate 30 mg tablet extended release 24 hr 30 mg PO DAILY Qty: 90 3RF atorvastatin 40 mg tablet 40 mg PO BEDTIME Qty: 90 3RF clopidogrel 75 mg tablet 75 mg PO DAILY Qty: 90 3RF valsartan 160 mg tablet 160 mg PO DAILY Qty: 90 3RF metoprolol tartrate 25 mg tablet 25 mg PO BID Qty: 180 3RF (DME) diabetic supplies, miscellan. Misc See Rx Instructions .Route Qty: 1 0RF Rx Instructions: As directed Vitamin D3 25 mcg (1,000 unit) Tablet 25 mcg PO DAILY Discharge Orders: Discharge ED (Routine); Ordered 11/22/24 Ordered By: Hillary Osuna Referrals: Brice Sanderson MD [Primary Care Provider, Family Practice] Discharge Diet: Usual diet Discharge Activity: Increase activity as tolerated Patient Instructions: Transient Ischemic Attack (ED), Opioid Safety, Pain Management, Patient Portal & Ozzy Instructions Activity Restrictions/Additional Instructions: Thank you for choosing [facility] for your healthcare needs today. You have been screened and evaluated and felt safe for discharge. Health conditions do change or evolve sometimes and as such it is important that you follow up with your Primary Doctor to be re checked, 3-5 days is a general good time frame for follow up. You are always welcome to return to the ED for re assessment if your symptoms are worsening or you have new concerns Print Language: Niuean Coding Level of Care Code ED Digital Composer for Tadeo Cunningham
[2024-11-22 18:46] LABS: Troponin(5th) Baseline 17 ng/L (0-15)
[2024-11-22 18:47] LABS: Alanine Aminotransferase 13 U/L (0-41); Albumin Level 4.5 g/dL (3.5-5.2); Alkaline Phosphatase 169 U/L (40-130); Anion Gap 18.8 (5-19); Aspartate Amino Transferase 19 U/L (0-40); Blood Urea Nitrogen 14 mg/dL (8-23); Calcium 9.7 mg/dL (8.5-10.5); Carbon Dioxide 23 mmol/L (22-29); Chloride 101 mmol/L (98-107); Creatinine Clr Calc Pharmacy 83.0636; Globulin 2.6 g/dL (1.3-4.6); Glucose 105 mg/dL (65-115); Osmolality Calculated 287 mOsm/kg (285-295); Potassium 4.8 mmol/L (3.5-5.1); Sodium 138 mmol/L (136-145); Total Protein 7.1 g/dL (6.6-8.7)
[2024-11-22 19:06] VITALS: BP 185/102; PULSE 65; RESP 16; O2SAT 95
[2024-11-22] MEDS: ondansetron 2 mg/ML SDV 2 mL 8 MG IVP (19:14)
[2024-11-22 19:23] LABS: Glucose Urine UA Negative (Normal); Nitrate Urine Negative (Negative); Specific Gravity, Urine 1.018 (1.005-1.030)
[2024-11-22 19:30] LABS: PCP Screen Urine Negative (Negative)
[2024-11-22 19:41] VITALS: BP 140/81; PULSE 61; RESP 14; O2SAT 95
[2024-11-22 20:06] VITALS: BP 149/89; PULSE 63; O2SAT 96
== END 2024-11-22 20:07 | disposition home or self-care (01) ==
PROVIDERS: Emergency Provider Emergency Medicine; PCP Family Medicine
DX: G45.9 Transient cerebral ischemic attack, unspecified (principal); Z79.84 Long term (current) use of oral hypoglycemic drugs; Z79.02 Long term (current) use of antithrombotics/antiplatelets; E11.40 Type 2 diabetes mellitus with diabetic neuropathy, unspecified; Z86.73 Personal history of transient ischemic attack (TIA), and cerebral infarction without residual deficits; I11.0 Hypertensive heart disease with heart failure; I50.9 Heart failure, unspecified
CPT/HCPCS: 36416; 70450; 80053; 80306; 81001; 82962; 84484; 85025; 85610; 85730; 93005; 96374; 99285; J2405

== ENCOUNTER → 2024-12-09 13:14 | Outpatient (BNVA) | payer MEDICARE, SELFPAY | PROVIDERS: PCP Family Medicine; Visit Provider Internal Medicine Cardiovascular Disease | DX: I25.10 Atherosclerotic heart disease of native coronary artery without angina pectoris (principal); E78.5 Hyperlipidemia, unspecified; Z86.73 Personal history of transient ischemic attack (TIA), and cerebral infarction without residual deficits; I25.2 Old myocardial infarction; I11.0 Hypertensive heart disease with heart failure; I50.9 Heart failure, unspecified | CPT/HCPCS: 99214 ==

== ENCOUNTER 2024-12-26 06:45 | Outpatient (CLI) | payer MEDICARE, SELFPAY ==
--- NOTE | 2024-12-26 07:07 | CT_ITS ---
WS: [id number] CT ANGIOGRAM CEREBRAL AND CAROTID ARTERIES HISTORY: TIA TECHNIQUE: CT angiogram is performed of the carotid and cerebral arteries. During arterial injection imaging is obtained from the skull vertex to the aortic arch in 1.25 mm imaging. Coronal and sagittal reformats are submitted. Additional multi planar reformats of the carotid and cerebral arteries are submitted, MIP imaging also reviewed. NASCET criteria utilized. All CT scans at [facility] use at least one of these dose optimization techniques: automated exposure control; mA and/or kV adjustment per patient size (includes targeted exams where dose is matched to clinical indication); or iterative reconstruction. CONTRAST: Omnipaque 350; 100 mL IV. DLP: 1718.81 mGy.cm COMPARISON: 10/16/[address] brain: Very mild cerebral atrophy. Mild small vessel changes. No prior infarct. Carotid Angiogram: Right carotid: Common carotid artery: Arises normally from the innominate artery. No significant plaque or stenosis. Internal carotid artery: Minimal plaque at the bifurcation. No stenosis. External carotid artery: Patent. Left carotid: Common carotid artery: Arises from the base of the innominate artery. No stenosis. Minimal plaque at the bifurcation. No limiting stenosis. Internal carotid artery: No plaque or stenosis. External carotid artery: Patent. Right vertebral artery: Very small caliber throughout its course. Similar to prior examinations. Left vertebral artery: Dominant LEFT vertebral artery. Small amount of plaque near the origin of the vertebral artery but no stenosis. Subclavian arteries: No stenosis or significant abnormality. Upper thorax: Normal. Thyroid gland: Normal. Osseous structures: Advanced degenerative disc disease at C5-6. CEREBRAL ANGIOGRAM: Intracranial vertebral arteries: Small caliber distal RIGHT vertebral artery. Dominant LEFT vertebral artery. Basilar artery: No significant stenosis or occlusion. No aneurysm. Intracranial Internal carotid arteries: Scattered plaque through the carotid cavernous sinuses. Stenosis estimated near 50 to 60% bilaterally. Middle cerebral arteries: Normal. Anterior cerebral arteries and ACOM: Normal. Posterior cerebral arteries and PCOM's: Normal. Dural venous sinuses are normally enhancing. Mastoid air cells: Normal. Paranasal sinuses: Normal. Calvarium: Normal. CT/CT angio headneck* [id number] IMPRESSION: 1. No significant cervical carotid artery stenosis. No progression of mild noe que at the bifurcations. 2. Moderate calcified plaque in the cavernous carotid arteries. Stenosis estim ated 50 to 60% and slightly greater on the RIGHT. 3. Dominant LEFT vertebral artery. Diffusely small RIGHT vertebral artery. No change.
--- NOTE | 2024-12-26 07:15 | USCV_ITS ---
Trung Mota Age: 69 Gender: M : 1955 Exam Date: 12/26/2024 07:30 Ordering Phys: Brice Sanderson MD Technologist: Exam Location: [facility] [place] Indication: hx of mi BP: 140 / 80 HR: 52 Rhythm: Sinus Technical Quality: Adequate MEASUREMENTS (Male / Female) Normal Values 2D ECHO LV Diastolic Diameter PLAX 5.5 cm 4.2 - 5.9 / 3.9 - 5.3 cm IVS Diastolic Thickness 1.3 cm 0.6 - 1.0 / 0.6 - 0.9 cm IVS Systolic Thickness 1.5 cm LVPW Diastolic Thickness 1.4 cm 0.6 - 1.0 / 0.6 - 0.9 cm LVPW Systolic Thickness 2.3 cm LVOT Diameter 2.1 cm LV Ejection Fraction 2D Teich 57.5 % LV Ejection Fraction MOD 4C 45.6 % LV Ejection Fraction MOD 2C 37.3 % LV Ejection Fraction 2C AL 37.3 % LA Diameter 5.3 cm RA Systolic Volume 4C AL 71.4 ml RA Systolic Volume 4C MOD 70.1 ml Aorta at Sinotubular Diameter 3.4 cm IVC Diameter 2.7 cm M-MODE LA Ao Ratio MM 1.4 AV Cusp Separation MM 1.8 cm DOPPLER AV Peak Velocity 110.0 cm/s LVOT Peak Velocity 84.0 cm/s AV Area Cont Eq vti 3.3 cm squared AV Area Cont Eq pk 2.6 cm squared MV Peak Velocity 114.0 cm/s MV Area PHT 4.4 cm squared Mitral E to A Ratio 2.3 TV Peak Velocity 287.5 cm/s TR Peak Velocity 448.0 cm/s TR Peak Gradient 80.3 mmHg TV Peak E Velocity 146.0 cm/s PV Peak Velocity 75.0 cm/s FINDINGS Left Ventricle Left ventricle is dilated. LV systolic function is moderately reduced with EF of 35-40%. Moderate global hypokinesis with apical akinesis. Right Ventricle Normal right ventricular size and systolic function. Right Atrium Dilated Left Atrium Dilated Mitral Valve Structurally normal mitral valve. Mild to moderate mitral regurgitation Aortic Valve Thickened aortic valve. No aortic valve stenosis. Tricuspid Valve Insufficient TR jet to calculate RVSP Pulmonic Valve Mild pulmonic regurgitation. Pericardium Normal Aorta Normal in size IVC Appears to be dilated CONCLUSIONS Left ventricle is dilated. LV systolic function is moderately reduced with EF of 35-40% Biatrial dilation Mild to moderate mitral regurgitation Mild pulmonic regurgitation IVC appears to be dilated Alex Cao MD (Electronically Signed) Final Date: 27 December 2024 23:56 S
[2024-12-26] MEDS: iohexol 350 mg/mL 500 mL Btl (per mL) IV (08:02)
== END 2024-12-26 06:46 | disposition home or self-care (01) ==
LOC: RAD 06:46
PROVIDERS: PCP Family Medicine; Visit Provider Family Medicine
DX: G45.9 Transient cerebral ischemic attack, unspecified (principal); I34.0 Nonrheumatic mitral (valve) insufficiency; I37.1 Nonrheumatic pulmonary valve insufficiency
CPT/HCPCS: 70496; 70498; 93306

== ENCOUNTER → 2025-01-24 11:31 | Outpatient (BNVA) | payer MEDICARE, SELFPAY | PROVIDERS: PCP Family Medicine; Visit Provider Internal Medicine Cardiovascular Disease | DX: I25.10 Atherosclerotic heart disease of native coronary artery without angina pectoris (principal); I10 Essential (primary) hypertension; E78.5 Hyperlipidemia, unspecified; R93.1 Abnormal findings on diagnostic imaging of heart and coronary circulation; I25.2 Old myocardial infarction; I69.351 Hemiplegia and hemiparesis following cerebral infarction affecting right dominant side | CPT/HCPCS: 99214 ==